=== PATIENT | female | born 1955 | race Caucasian/White ===

== ENCOUNTER → 2016-08-26 | Outpatient (REF) | payer OTHER ==
[~2016-08-26] MED LIST: /ADVA50050 IN; ADVAIR INH; ALBUTEROL; ALBUTEROL INH; COLA100C2 OR; COLC0.6T OR; DUONSOL IN; FLAG500T OR; HYDR25TA6 OR; IPRATROPIUM; IPRATROPIUM INH; L-THYROXINE; LEVA750T OR; LEVO175T3 OR; LISINOPRIL/HCTZ; MAGN250T; NAPR500T OR; NEUR100C OR; NEUR300C; PERC7.5T8 OR; PROP40TA; PROP40TA OR; SERT50TA2 OR; SIMV20TA2; SIMV20TA2 OR; VICO5TAB OR; VICODIN; VIT D 2000 OR; VITA-113 SL; VITA500T OR; ZANA4CAP OR; ZEST20TA OR; ZEST20TA4 OR; ZOLO50TA; soma OR
[2016-08-26 14:36] LABS: ALBUMIN 3.8 GM/DL (3.2-5.2); ALBUMIN/GLOBULIN RATIO 1.27 (1.00-1.93); ALKALINE PHOSPHATASE 108 U/L (45-117); ALT/SGPT 10 U/L (12-78); ANION GAP 10 MEQ/L (8-16); AST/SGOT 15 U/L (15-37); BILIRUBIN,TOTAL 0.4 MG/DL (0.2-1.0); BLOOD UREA NITROGEN 10 MG/DL (7-18); CALCIUM LEVEL 9.6 MG/DL (8.5-10.1); CARBON DIOXIDE LEVEL 25 MEQ/L (21-32); CHLORIDE LEVEL 106 MEQ/L (98-107); CREATININE FOR GFR 0.67 MG/DL (0.55-1.02); GLOMERULAR FILTRATION RATE > 60.0 (>51); GLUCOSE, FASTING 109 MG/DL (70-105); SODIUM LEVEL 141 MEQ/L (136-145); TOTAL PROTEIN 6.8 GM/DL (6.4-8.2)
== END ==
LOC: M SFHCPLAZ 11:18
PROVIDERS: ATTEND Nurse Practitioner Family
DX: I10 Essential (primary) hypertension (principal); E03.9 Hypothyroidism, unspecified; E11.9 Type 2 diabetes mellitus without complications; M10.9 Gout, unspecified

== ENCOUNTER → 2016-11-24 | Outpatient (REF) | payer OTHER ==
[~2016-11-24] MED LIST changes: +COLA100C3 PO; +COLC1CAP PO; +DRIS50002 PO; +GABA-282 PO; +HYDR25TAB PO; +IRON1TAB PO; +LEVO175T2 PO; +LISI-538 PO; +LISI-542 PO; +MAGN1TAB25 PO; +MELO15TA4 PO; +NAPR500T PO; +PROP40TA PO; +RISATAB3 PO; +SERT50TA PO; +VICO5TAB16 PO; +VITA-193 PO; +VITA200016 PO; +VITA500C24 PO; +ZANA4CAP PO; +advair INH
[2016-11-24 11:04] LABS: FREE T4 1.52 NG/DL (0.76-1.46)
== END ==
LOC: M SFHCPLAZ 07:40
PROVIDERS: ATTEND Nurse Practitioner Family
DX: E03.9 Hypothyroidism, unspecified (principal)

== ENCOUNTER → 2016-12-09 | Outpatient (CLI) | payer OTHER | LOC: M LAB 13:18 | PROVIDERS: ATTEND Nurse Practitioner Family | DX: M79.1 Myalgia (principal) ==

== ENCOUNTER → 2016-12-09 | Outpatient (CLI) | payer OTHER ==
[~2016-12-09] MED LIST changes: +ADVA115A INH; +ALBU17IN INH; +ALLO100T PO; +BACITAB3 PO; +FOLI1TAB2 PO; +HYDR200T3 PO; +IRON50TA PO; +LEVO100T5 PO; +METH-107 PO; +MOBI15TA PO; +OMEP40CA2 PO; +RANI150T PO; +ROBA500T PO
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
== END ==
LOC: M PAIN 11:20
PROVIDERS: ATTEND Nurse Practitioner Family
DX: M79.1 Myalgia (principal); M06.9 Rheumatoid arthritis, unspecified; M54.9 Dorsalgia, unspecified; M96.1 Postlaminectomy syndrome, not elsewhere classified; E03.9 Hypothyroidism, unspecified; J45.909 Unspecified asthma, uncomplicated; E78.2 Mixed hyperlipidemia; E11.9 Type 2 diabetes mellitus without complications; F32.9 Major depressive disorder, single episode, unspecified; Z88.6 Allergy status to analgesic agent; Z88.8 Allergy status to other drugs, medicaments and biological substances; Z79.899 Other long term (current) drug therapy

== ENCOUNTER → 2016-12-23 | Outpatient (CLI) | payer OTHER ==
[~2016-12-23] VITALS: Ht 157.5 cm; Wt 78.5 kg
[~2016-12-23] MED LIST changes: +NS 1,000 ML IV ONE; +PROPOFOL 200 MG/20 ML VIAL As Ordered ONE; +ePHEDrine INJ 50 MG/ML VIAL As Ordered ONE; +ePHEDrine SULFATE 25 MG/5 ML(5MG/ML) SYRINGE As Ordered ONE
--- NOTE | 2016-12-23 11:30 | ROOR ---
Patient Name: Janie Perdue Procedure Date: 12/23/2016 11:17 AM Date of : 1955 Age: 61 Room: [facility] Gender: Female Note Status: Finalized Procedure: Upper GI endoscopy Indications: Follow-up of chronic gastric erosion/shallow ulcer, Erosive gastropathy, Gastroparesis Providers: Philip MANNING MD Referring MD: Allie Mcdonald NP Requesting Provider: Medicines: Monitored Anesthesia Care Complications: No immediate complications. Procedure: Pre-Anesthesia Assessment: - The heart rate, respiratory rate, oxygen saturations, blood pressure, adequacy of pulmonary ventilation, and response to care were monitored throughout the procedure. The Endoscope was introduced through the mouth, and advanced to the second part of duodenum. The upper GI endoscopy was accomplished without difficulty. The patient tolerated the procedure well. Findings: The esophagus was normal. The stomach was normal. The examined duodenum was normal. Impression: - Normal esophagus. - Normal stomach. - Normal examined duodenum. - No specimens collected. Recommendation: - Continue present medications. - Gastroparesis diet: - Eat smaller, more frequent meals throughout the day. - Low fat diet. - Liquid/soft foods are tolerated better than solid foods. - Low fiber/well cooked vegetables are tolerated better than high fiber/fibrous foods/raw vegetables. - Avoid medications that inhibit gastric/intestinal motility such as narcotic medications. Philip Manning MD Philip MANNING MD 12/23/2016 11:29:57 AM This report has been signed electronically. Number of Addenda: 0 Note Initiated On: 12/23/2016 11:17 AM Estimated Blood Loss: Estimated blood loss: none.
[2016-12-23 11:44] VITALS: BP 154/81
== END | disposition home or self-care (01) ==
LOC: M OPP 09:54
PROVIDERS: ATTEND Internal Medicine Gastroenterology
DX: K25.7 Chronic gastric ulcer without hemorrhage or perforation (principal); K31.84 Gastroparesis; R94.31 Abnormal electrocardiogram [ECG] [EKG]; I10 Essential (primary) hypertension; E78.5 Hyperlipidemia, unspecified; R01.1 Cardiac murmur, unspecified; M10.9 Gout, unspecified; E03.9 Hypothyroidism, unspecified; R12 Heartburn; I77.9 Disorder of arteries and arterioles, unspecified; M19.90 Unspecified osteoarthritis, unspecified site; M25.60 Stiffness of unspecified joint, not elsewhere classified; F41.9 Anxiety disorder, unspecified; G43.909 Migraine, unspecified, not intractable, without status migrainosus; J45.909 Unspecified asthma, uncomplicated; J44.9 Chronic obstructive pulmonary disease, unspecified; M06.9 Rheumatoid arthritis, unspecified; F17.210 Nicotine dependence, cigarettes, uncomplicated; Z88.8 Allergy status to other drugs, medicaments and biological substances; Z91.018 Allergy to other foods; Z88.5 Allergy status to narcotic agent; Z79.899 Other long term (current) drug therapy; Z80.0 Family history of malignant neoplasm of digestive organs; Z80.3 Family history of malignant neoplasm of breast

== ENCOUNTER → 2017-01-03 | Outpatient (CLI) | payer OTHER ==
[~2017-01-03] MED LIST changes: +BACITAB PO; -BACITAB3 PO; +BACT800T5 PO; +BUPIVACAINE HCL 0.25% 10 ML VIAL As Ordered ONE; +BUPIVACAINE HCL 0.25% 30 ML VIAL As Ordered ONE; -COLA100C3 PO; +COLA100C5 PO; -FOLI1TAB2 PO; +FOLI1TAB4 PO; -METH-107 PO; +METH1TAB40 PO; -NS 1,000 ML IV ONE; -PROPOFOL 200 MG/20 ML VIAL As Ordered ONE; +TRIAMCINOLONE ACETONIDE SUSP 40 MG/ML VIAL (J3301) As Ordered ONE; -ePHEDrine INJ 50 MG/ML VIAL As Ordered ONE; -ePHEDrine SULFATE 25 MG/5 ML(5MG/ML) SYRINGE As Ordered ONE
--- NOTE | 2017-01-15 00:23 | ECWPNPC ---
PATIENT NAME: NAVNEET MARTIN : 1955 GENDER: FEMALE VISIT DATE: 01/03/2017 DISCHARGE DATE: 01/03/17 1007 VISIT LOCKED DATE TIME: PHYSICIAN: TAD BRAUN RESOURCE: TAD BRAUN REASON FOR APPOINTMENT 1. TPI HISTORY OF PRESENT ILLNESS HISTORY OF PRESENT ILLNESS: PAIN THE PATIENT DESCRIBES THE PAIN... FALL RISK SCREENING: SCREENING :NO FALLS IN THE PAST YEAR CURRENT MEDICATIONS TAKING TYLENOL 8 HOUR 650 MG TABLET EXTENDED RELEASE 1 TABLET NEEDED ORALLY EVERY 8 HRS, NOTES: 01-01-17 TAKING IRON 50 MG TABLET 2 TABLET ORALLY ONCE A DAY( OTC), NOTES: 01-02-17899 TAKING VITAMIN C 500 MG TABLET CHEWABLE 1 TABLET ORALLY ONCE A DAY, NOTES: 01-02-17899 TAKING MAGNESIUM 500 MG TABLET 1 TABLET WITH A MEAL ORALLY ONCE A DAY, NOTES: 899 TAKING VITAMIN B-12 1000 MCG TABLET 1 TAB(S) ORALLY ONCE A DAY, NOTES: 899 TAKING FOLIC ACID 1 MG TABLET 1 TAB(S) ORALLY DAILY, NOTES: 01-02-17799 TAKING LISINOPRIL 20 MG TABLET 1 TABLET ORALLY DAILY IN AM, NOTES: 01-02-17799 TAKING SYNTHROID 125 MCG TABLET 1 TABLET ON AN EMPTY STOMACH IN THE MORNING ORALLY ONCE A DAY, NOTES: 01-02-17799 TAKING SERTRALINE HCL 50 MG TABLET 1 TABLET ORALLY ONCE A DAY, NOTES: 01-02-17899 TAKING LISINOPRIL 5 5 MG TABLET 1 TAB ORALLY DAILY IN PM, NOTES: 01-02-17899 TAKING GABAPENTIN 300 MG CAPSULE 1 CAPSULE ORALLY THREE TIMES A DAY, NOTES: 01-02-17899 TAKING DRISDOL 50,000 UNITS TABLET DIRECTED ORAL WEEKLY, NOTES: 01-02-17899 TAKING VITAMIN D3 SUPER STRENGTH 2000 UNIT TABLET 1 TABLET ORALLY ONCE A DAY, NOTES: 01-02-17899 TAKING PLAQUENIL 200 MG TABLET 1 TABLET WITH FOOD OR MILK ORALLY ONCE A DAY, NOTES: 01-02-17899 TAKING DUONEB 0.5-2.5 (3) MG/3ML SOLUTION 3 ML INHALATION THREE TIMES DAILY, NEEDED, NOTES: 01-01-17899 TAKING ADVAIR HFA 115-21 MCG/ACT AEROSOL 2 PUFFS INHALATION TWICE A DAY, NOTES: 01-01-17899 TAKING ALBUTEROL SULFATE HFA 108 (90 BASE) MCG/ACT AEROSOL SOLUTION 2 PUFFS INHALATION EVERY 4 HOURS NEEDED, NOTES: 01-01-17799 TAKING ALLOPURINOL 100 MG TABLET 1 TABLET ORALLY ONCE A DAY, NOTES: 01-02-17899 TAKING ROBAXIN 500 MG TABLET 1 TABLET ORALLY FOUR TIMES A DAY NEEDED, NOTES: 01-02-17899 TAKING BACID 1 TABLET 1 TAB(S) ORALLY TWICE DAILY, NOTES: 01-02-17899 TAKING MOBIC 15 MG TABLET 1 TABLET ORALLY ONCE A DAY PRN, NOTES: 01-02-17 MEDICATION LIST REVIEWED AND RECONCILED WITH THE PATIENT PAST MEDICAL HISTORY DM-2 DIET CONTROLLED HYPERTENSION HYPOTHYROIDISM H/O SYNCOPE/HYPOTENSION/HTN/ 15 DAY EVENT MONITOR UNREMARKABLE- JUVENAL- DR NASSAR PEPTIC ULCER DISEASE DIAGNOSED 2010. (EGD AND COLONOSCOPY 2 011) DR. SKELTON DEPRESSION RA OF CERVICAL/THORACIC/LUMBAR SPINE/LEFT SHOULDER/BOTH KNEES- DR SOTO & DR. WAGNER RSD- DR GUIDRY (NO LONGER FOLLOWING WITH DR. GUIDRY) GOUT QUESTIONABLE H/O PE 2 YRS AGO, NOT ON ANTICOAGULATION COPD/CHRONIC BRONCHITIS ASTHMA AVASCULAR NECROSIS OF RIGHT SHOULDER- SYR- DR SOTO- [facility] ORTHO EKG 05/07 PNEUMO 05/05 EMG/NCS [facility]- SM PN/ L5-S1 RADICULOPATHY MAMMO 05/08 NEG CARPAL TUNNEL-- BILATERAL GERD NO KNEE CAPS BILATERAL STATES SHE'S A HEMOPHILIAC ALLERGIES ASPIRIN: NAUSEA/VOMITING, CONVULSIONS: ALLERGY STATINS (FOR ALLERGY USE ONLY): RASH: ALLERGY SOCIAL HISTORY GENERAL: TOBACCO USE ARE YOU A:CURRENT SMOKER HOW MANY CIGARETTES A DAY DO YOU SMOKE?5 OR LESS HOW SOON AFTER YOU WAKE UP DO YOU SMOKE YOUR FIRST CIGARETTE?31-60 MIN HOW OFTEN DO YOU SMOKE CIGARETTES?EVERY DAY PATIENT COUNSELED ON THE DANGERS OF TOBACCO USE AND URGED TO QUIT:12/09/2016 ARE YOU INTERESTED IN QUITTING?NOT READY TO QUIT COUNSELED THE PATIENT ON SMOKING EFFECTS, EDUCATION [id number]/18/2017 SMOKING CESSATION INFORMATION GIVEN04/05/2016 BMI CARE GOAL FOLLOW-UP ABOVE NORMAL BMI FOLLOW-UPGIVING ENCOURAGEMENT TO EXERCISE ALCOHOL SCREENING DID YOU HAVE A DRINK CONTAINING ALCOHOL IN THE PAST YEAR?YES HOW OFTEN DID YOU HAVE A DRINK CONTAINING ALCOHOL IN THE PAST YEAR?MONTHLY OR LESS (1 POINT) HOW MANY DRINKS DID YOU HAVE ON A TYPICAL DAY WHEN YOU WERE DRINKING IN THE PAST YEAR?1 OR 2 (0 POINTS) HOW OFTEN DID YOU HAVE SIX OR MORE DRINKS ON ONE OCCASION IN THE PAST YEAR?NEVER (0 POINTS) POINTS1 INTERPRETATIONNEGATIVE RECREATIONAL DRUG USE DENIES. 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 DIET: CONTROLS DIABETES BY HER DIET INTAKE. EXERCISE: WALKS. MARITAL STATUS: CALVIN. OTHERS AT HOME: SPOUSE, ANA(SISTER), CHILD. PETS: 1 DOG. [employer]. LANGUAGE [employer]. 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 LEARNING BARRIERS / SPECIAL NEEDS CHANGE FROM LAST VISIT?NO NO BARRIERS TO LEARNING?NO HEARING IMPAIRED?NO VISION IMPAIRED?YES :CORRECTIVE LENSES COGNITIVELY IMPAIRED?NO READINESS TO LEARN?YES LEARNING PREFERENCES?YES :BOOKLETS, HANDOUTS LEARNING CAPABILITIES PRESENT?YES EMOTIONAL BARRIERS?NO SPECIAL DEVICES?YES :HERMELINDA NVOAK COMPUTER DRAFTER NEEDED?NO PAIN CLINIC PFS, CLERGY, PUBLIC HEALTH REFERRALS PFS REFERRAL NEEDED?NO CLERGY REFERRAL NEEDED?NO PUBLIC HEALTH REFERRAL NEEDED?NO ADVANCE DIRECTIVES HEALTH CARE PROXY?YES NAME OF HCP [place] CONTACT # FOR HCP [phone] DO YOU HAVE A COPY WITH YOU?NO DO YOU HAVE A DNR?NO LIVING WILL?NO WOULD YOU LIKE MORE INFORMATION?NO 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 , [place] PHONE # OF POA? [phone] DO YOU HAVE A COPY WITH YOU? ON FILE HOUSING: OWNS HOME. DOMESTIC VIOLENCE NONE. SMOKIN 5 CIGS PER DAY. H/O 30 PACK YEARS. 12/09/16 ORIENTATION TO PLAN OF CARE FOR THE PAIN CENTER REVIEWED WITH PATIENT AND SHE VERBALIZED UNDERSTANDING. AD. REVIEW OF SYSTEMS REVIEWED BY: PROVIDER: . CONSTITUTIONAL: ANY CHANGE IN YOUR MEDICAL CONDITION? NO . CHILLS NO . FEVER NO . INFECTION: DO YOU HAVE NEW INFECTIONS? NO . DO YOU HAVE HISTORY OF MRSA? NO . MUSCULOSKELETAL: ANY NEW PATTERNS OF PAIN OR NUMBNESS? NO . GASTROENTEROLOGY: ANY NEW CHANGE IN BOWEL CONTROL? NO . GENITOURINARY: ANY NEW CHANGE IN BLADDER CONTROL? NO . IS THERE A CHANCE YOU COULD BE ? NO . HEMATOLOGY/LYMPH: DO YOU TAKE ANY BLOOD THINNERS? (FOR EXAMPLE- COUMADIN, PLAVIX, AGGRENOX, PLATEL, PRADAXA, OR XARELTO) NO . WHEN WAS YOUR LAST DOSE? DATE: TIME: . NEUROLOGY: HAVE YOU FALLEN IN THE PAST 6 MONTHS? YES TRIPPED OVER A DOG , NO INJURY . ANY NEW EXTREMITY NUMBNESS OR WEAKNESS? NO . CARDIOLOGY: DO YOU HAVE A PACEMAKER OR DEFIBRILLATOR? NO . RESPIRATORY: HAVE YOU BEEN SICK IN THE PAST WEEK? NO . FEVER NO . FLU LIKE SYMPTOMS? NO . COUGH NO . INTEGUMENTARY: DO YOU HAVE ANY RASHES OR OPEN SORES? NO . ALLERGIC/IMMUNO: ARE YOU ALLERGIC TO SHELLFISH OR IV DYE? NO . ANY NEW ALLERGIES? NO . PSYCHIATRIC: DO YOU HAVE THOUGHTS OF HURTING YOURSELF OR SOMEONE ELSE? NO . ARE YOU ABUSED, NEGLECTED, OR IN AN UNSAFE ENVIRONMENT? NO . ENDOCRINOLOGY: ARE YOU DIABETIC? NO . OTHER: DO YOU NEED ANY PRESCRIPTIONS? NO . IF YES, PLEASE LIST: ____ . ANY NEW PROBLEMS WITH YOUR MEDICATIONS? NO . WHEN DID YOU LAST EAT? ____ . WHEN DID YOU LAST DRINK? ____ . WHAT DID YOU LAST DRINK? ____ . NAME OF PERSON DRIVING YOU HOME? ____ . DO YOU HAVE ANY OTHER QUESTIONS OR CONCERNS NO . VITAL SIGNS WT 177.6 LBS, HT 62 IN, BMI 32.48 INDEX, BP 151/68 MM HG, HR 77 /MIN, RR 16 /MIN, TEMP 97.7 F, OXYGEN SAT % 92%, SAFE IN ENV? (Y/N) YES, NA INITIALS TL 0852, REVIEWED BY: KG. ASSESSMENTS MYALGIA - M79.1 (PRIMARY) PROCEDURES PN TRIGGER POINT INJECTION WITH STEROIDS PRE PROCEDURE DIAGNOSIS 1. MYALGIA 2. PAIN AT RIGHT THORACIC AREA, LEFT SHOULDER AREA, AND RIGHT LOWER BACK AREA POST PROCEDURE DIAGNOSIS 1. MYALGIA 2. PAIN AT RIGHT THORACIC AREA, LEFT SHOULDER AREA, AND RIGHT LOWER BACK AREA PROCEDURE TRIGGER POINT INJECTION AT RIGHT THORACIC AREA, LEFT SHOULDER AREA, AND RIGHT LOWER BACK AREA SURGEON DR. TAD BRAUN TRACTOR DRILL OPERATOR NONE ANESTHESIA LOCAL PRE PROCEDURE NOTE THE PATIENT HAS A HISTORY OF CHRONIC PAIN AT THE RIGHT THORACIC AREA, LEFT SHOULDER AREA, AND RIGHT LOWER BACK AREA. I EVALUATE THE PATIENT AND REVIEWED THE CHART. THERE IS EVIDENCE OF BANDS OF TISSUE WITH RESTRICTION OF MOVEMENT AND PRESENCE OF TRIGGER POINT AT THE AFFECTED AREA. I WENT OVER THE RISKS, ALTERNATIVES, AND BENEFITS ASSOCIATED WITH THIS PROCEDURE. THE PATIENT WOULD LIKE TO PROCEED AND GIVE CONSENT TO PERFORMED THE PROCEDURE. THE PATIENT DENIES UNEXPLAINABLE WEIGHT LOSS, FEVER, CHILLS, OR NEW CHANGES IN URINARY OR BOWEL CONTROL DESCRIPTION OF PROCEDURE THE PATIENT WAS BROUGHT TO THE PROCEDURE ROOM AND PLACED IN THE SITTING POSITION. THE AREA WAS CLEANED WITH ALCOHOL. THE PROCEDURE WAS DONE USING ASEPTIC STERILE TECHNIQUE. I CHECKED LATERALITY AND THE LEVEL WHERE THE PROCEDURE WAS GOING TO BE PERFORMED WITH THE PATIENT AND THE SUPPORTING STAFF AT THE MOMENT OF THE TIME OUT IN THE PROCEDURE ROOM. USING A 25-GAUGE NEEDLE, TRIGGER POINTS WERE INJECTED AT THE RIGHT THORACIC AREA, LEFT SHOULDER AREA, AND RIGHT LOWER BACK AREA WITH A TOTAL OF 40 ML OF BUPIVACAINE 0.25% AND KENALOG 40 MG. THERE WAS NO EVIDENCE OF BLOOD, PARESTHESIA OR CEREBROSPINAL FLUID DURING THE PROCEDURE. THE PATIENT WAS SENT TO THE RECOVERY ROOM. THE PATIENT WAS MOVING THE EXTREMITIES AND DOING WELL. THERE WAS NO COMPLICATION DURING THE PROCEDURE POST PROCEDURE NOTE THE PATIENT WILL BE SEEN IN A FOLLOW UP IN THE NEXT FEW WEEKS. INSTRUCTIONS WERE GIVEN, QUESTIONS WERE ANSWERED, AND THE PATIENT EXPRESSED UNDERSTANDING AND AGREES WITH THE PLAN. I, NURYS EARLY, DOCUMENTED THE ABOVE INFORMATION ACTING A SCRIBE FOR DR. BRAUN. I, DR. BRAUN, HAVE REVIEWED THE ABOVE DOCUMENT, SCRIBED BY NURYS EARLY, AND I VERIFY THAT IT IS ACCURATE PROCEDURE CODES 44193 INJECT TRIGGER POINTS 3/> DISPOSITION & COMMUNICATION FOLLOW UP 3 WEEKS ELECTRONICALLY SIGNED BY TAD BRAUN MD ON 01/14/2017 AT 10:16 AM EDT DISCLAIMER : THIS IS A VISIT SUMMARY EXTRACTED FROM THE [employer] CHART. IT IS NOT A COPY OF THE [employer] PROGRESS NOTE. [facility]
== END ==
LOC: M PAIN 08:35
PROVIDERS: ATTEND Anesthesiology
DX: G89.29 Other chronic pain (principal); M79.1 Myalgia; M54.6 Pain in thoracic spine; M25.511 Pain in right shoulder; M54.5 Low back pain; Z79.899 Other long term (current) drug therapy; F17.210 Nicotine dependence, cigarettes, uncomplicated; Z88.6 Allergy status to analgesic agent; Z88.8 Allergy status to other drugs, medicaments and biological substances

== ENCOUNTER → 2017-01-17 | Outpatient (CLI) | payer OTHER ==
[~2017-01-17] MED LIST changes: -BUPIVACAINE HCL 0.25% 10 ML VIAL As Ordered ONE; -BUPIVACAINE HCL 0.25% 30 ML VIAL As Ordered ONE; -TRIAMCINOLONE ACETONIDE SUSP 40 MG/ML VIAL (J3301) As Ordered ONE
--- NOTE | 2017-02-03 01:00 | ECWPNPC ---
PATIENT NAME: NAVNEET MARTIN : 1955 GENDER: FEMALE VISIT DATE: 01/17/2017 DISCHARGE DATE: 01/17/17948 VISIT LOCKED DATE TIME: PHYSICIAN: ASHU SHEN RESOURCE: ASHU SHEN REASON FOR APPOINTMENT 1. POST TPI HISTORY OF PRESENT ILLNESS HISTORY OF PRESENT ILLNESS: PAIN THE PATIENT DESCRIBES THE PAIN... FALL RISK SCREENING: SCREENING :NO FALLS IN THE PAST YEAR TODAY'S VISIT: NOTES: S/P TRIGGER POINT INJECTIONS TO MID THORACIC REGION COMPLETED ON12/27/16. REPORTS THIS WAS VERY HELPFUL AND DID SIGNIFF=ICANTLY IMPROVE PAIN AND TIGHTNESS IN THE REGION. RATES PAIN TODAY 2/10. NOTES AREA REMAINS TENDER AND SORE.. CURRENT MEDICATIONS TAKING TYLENOL 8 HOUR 650 MG TABLET EXTENDED RELEASE 1 TABLET NEEDED ORALLY EVERY 8 HRS, NOTES: 01-01-17 TAKING IRON 50 MG TABLET 2 TABLET ORALLY ONCE A DAY( OTC), NOTES: 01-02-17899 TAKING VITAMIN C 500 MG TABLET CHEWABLE 1 TABLET ORALLY ONCE A DAY, NOTES: 01-02-17899 TAKING MAGNESIUM 500 MG TABLET 1 TABLET WITH A MEAL ORALLY ONCE A DAY, NOTES: 899 TAKING VITAMIN B-12 1000 MCG TABLET 1 TAB(S) ORALLY ONCE A DAY, NOTES: 899 TAKING FOLIC ACID 1 MG TABLET 1 TAB(S) ORALLY DAILY, NOTES: 01-02-17799 TAKING LISINOPRIL 20 MG TABLET 1 TABLET ORALLY DAILY IN AM, NOTES: 01-02-17799 TAKING SYNTHROID 125 MCG TABLET 1 TABLET ON AN EMPTY STOMACH IN THE MORNING ORALLY ONCE A DAY, NOTES: 01-02-17799 TAKING SERTRALINE HCL 50 MG TABLET 1 TABLET ORALLY ONCE A DAY, NOTES: 01-02-17899 TAKING LISINOPRIL 5 5 MG TABLET 1 TAB ORALLY DAILY IN PM, NOTES: 01-02-17899 TAKING GABAPENTIN 300 MG CAPSULE 1 CAPSULE ORALLY THREE TIMES A DAY, NOTES: 01-02-17899 TAKING DRISDOL 50,000 UNITS TABLET DIRECTED ORAL WEEKLY, NOTES: 01-02-17899 TAKING VITAMIN D3 SUPER STRENGTH 2000 UNIT TABLET 1 TABLET ORALLY ONCE A DAY, NOTES: 01-02-17899 TAKING PLAQUENIL 200 MG TABLET 1 TABLET WITH FOOD OR MILK ORALLY ONCE A DAY, NOTES: 01-02-17899 TAKING DUONEB 0.5-2.5 (3) MG/3ML SOLUTION 3 ML INHALATION THREE TIMES DAILY, NEEDED, NOTES: 01-01-17899 TAKING ADVAIR HFA 115-21 MCG/ACT AEROSOL 2 PUFFS INHALATION TWICE A DAY, NOTES: 01-01-17899 TAKING ALBUTEROL SULFATE HFA 108 (90 BASE) MCG/ACT AEROSOL SOLUTION 2 PUFFS INHALATION EVERY 4 HOURS NEEDED, NOTES: 01-01-17799 TAKING ALLOPURINOL 100 MG TABLET 1 TABLET ORALLY ONCE A DAY, NOTES: 01-02-17899 TAKING ROBAXIN 500 MG TABLET 1 TABLET ORALLY FOUR TIMES A DAY NEEDED, NOTES: 01-02-17899 TAKING BACID 1 TABLET 1 TAB(S) ORALLY TWICE DAILY, NOTES: 01-02-17899 TAKING MOBIC 15 MG TABLET 1 TABLET ORALLY ONCE A DAY PRN, NOTES: 01-02-17 MEDICATION LIST REVIEWED AND RECONCILED WITH THE PATIENT PAST MEDICAL HISTORY DM-2 DIET CONTROLLED HYPERTENSION HYPOTHYROIDISM H/O SYNCOPE/HYPOTENSION/HTN/ 15 DAY EVENT MONITOR UNREMARKABLE- GEEY- DR NASSAR PEPTIC ULCER DISEASE DIAGNOSED 2010. (EGD AND COLONOSCOPY 2 011) DR. SKELTON DEPRESSION RA OF CERVICAL/THORACIC/LUMBAR SPINE/LEFT SHOULDER/BOTH KNEES- DR SOTO & DR. WAGNER RSD- DR GUIDRY (NO LONGER FOLLOWING WITH DR. GUIDRY) GOUT QUESTIONABLE H/O PE 2 YRS AGO, NOT ON ANTICOAGULATION COPD/CHRONIC BRONCHITIS ASTHMA AVASCULAR NECROSIS OF RIGHT SHOULDER- SYR- DR SOTO- [facility] ORTHO EKG 05/07 PNEUMO 05/05 EMG/NCS [facility]- SM PN/ L5-S1 RADICULOPATHY MAMMO 05/08 NEG CARPAL TUNNEL-- BILATERAL GERD NO KNEE CAPS BILATERAL STATES SHE'S A HEMOPHILIAC ALLERGIES ASPIRIN: NAUSEA/VOMITING, CONVULSIONS: ALLERGY STATINS (FOR ALLERGY USE ONLY): RASH: ALLERGY REVIEW OF SYSTEMS REVIEWED BY: PROVIDER: ASHU BALLARD . CONSTITUTIONAL: ANY CHANGE IN YOUR MEDICAL CONDITION? NO . CHILLS NO . FEVER NO . INFECTION: DO YOU HAVE NEW INFECTIONS? NO . DO YOU HAVE HISTORY OF MRSA? NO . MUSCULOSKELETAL: ANY NEW PATTERNS OF PAIN OR NUMBNESS? YES PT HAD TPI ON 6/12/17, REPORTS VERY GOOD PAIN CONTROL SINCE THAT TIME, A 2/10. PT STATES SHE HAS BEEN ABLE TO WALK MORE BECAUSE OF THIS. . GASTROENTEROLOGY: ANY NEW CHANGE IN BOWEL CONTROL? NO . GENITOURINARY: ANY NEW CHANGE IN BLADDER CONTROL? NO . IS THERE A CHANCE YOU COULD BE ? NO . HEMATOLOGY/LYMPH: DO YOU TAKE ANY BLOOD THINNERS? (FOR EXAMPLE- COUMADIN, PLAVIX, AGGRENOX, PLATEL, PRADAXA, OR XARELTO) NO . WHEN WAS YOUR LAST DOSE? DATE: TIME: . NEUROLOGY: HAVE YOU FALLEN IN THE PAST 6 MONTHS? NO . ANY NEW EXTREMITY NUMBNESS OR WEAKNESS? NO . CARDIOLOGY: DO YOU HAVE A PACEMAKER OR DEFIBRILLATOR? NO . RESPIRATORY: HAVE YOU BEEN SICK IN THE PAST WEEK? NO . FEVER NO . FLU LIKE SYMPTOMS? NO . COUGH NO . INTEGUMENTARY: DO YOU HAVE ANY RASHES OR OPEN SORES? NO . ALLERGIC/IMMUNO: ARE YOU ALLERGIC TO SHELLFISH OR IV DYE? NO . ANY NEW ALLERGIES? NO . PSYCHIATRIC: DO YOU HAVE THOUGHTS OF HURTING YOURSELF OR SOMEONE ELSE? NO . ARE YOU ABUSED, NEGLECTED, OR IN AN UNSAFE ENVIRONMENT? NO . ENDOCRINOLOGY: ARE YOU DIABETIC? NO . OTHER: DO YOU NEED ANY PRESCRIPTIONS? NO . IF YES, PLEASE LIST: ____ . ANY NEW PROBLEMS WITH YOUR MEDICATIONS? NO . WHEN DID YOU LAST EAT? ____ . WHEN DID YOU LAST DRINK? ____ . WHAT DID YOU LAST DRINK? ____ . NAME OF PERSON DRIVING YOU HOME? ____ . DO YOU HAVE ANY OTHER QUESTIONS OR CONCERNS NO . PSYCHOLOGY: SLEEP DISTURBANCES NOT SLEEPING WELL DUE TO COMMUNITY SAFETY ISSUES . VITAL SIGNS WT 175.0 LBS, HT 62 IN, BMI 32.00 INDEX, BP 149/86 MM HG, HR 74 /MIN, RR 16 /MIN, TEMP 97.7 F, OXYGEN SAT % 97%, SAFE IN ENV? (Y/N) YES, NA INITIALS TL 0849, REVIEWED BY: STEVE. EXAMINATION GENERAL EXAMINATION: LUNGS:CLEAR TO AUSCULTATION BILATERALLY. HEART:HEART RATE REGULAR. MUSCULOSKELETAL:MUSCLE STRENGTH TESTING 5/5 BILATERAL UPPER AND LOWER EXTREMITIES. CANE USED OFR BALANCE. , TRIGGER POINTS AND TIGHT FIBROUS BANDS NOTED ALONG MIDSCAPULA REGION RIGHT SIDE GREATER THAN LEFT.. JOINTS:SWOLLEN JOINTS NOTED PIP JOINTS BOTH HANDS.. ASSESSMENTS MYALGIA - M79.1 (PRIMARY) RHEUMATOID ARTHRITIS - M06.9 BACK PAIN - M54.9 LUMBAR POST-LAMINECTOMY SYNDROME - M96.1 TREATMENT MYALGIA TRIGGER POINT 3 + ASHU DODSON 01/17/2017 9:33:15 AM > MID THORACIC/SCAPULA NOTES: DO EXERCISES AND STRETCHES, TENNIS BALL TO APPLY PRESSURE TO ARMSHOLD PLAQUENIL FOR 2 DAYS PROR TO INJECTION. PREVENTIVE MEDICINE PAIN CLINIC TEACHING: PROCEDURE TEACHING REVIEWED TEACHING FOR TRIGGER POINT INJECTIONS, PT VERBALIZES UNDERSTANDING. PROCEDURE CODES FA211 ESTABILISHED PATIENT [facility] FACILITY CHARGE DISPOSITION & COMMUNICATION FOLLOW UP SCHED FOR TPI IN 1 MONTH (REASON: THORACIC PAIN) ELECTRONICALLY SIGNED BY KATELIN RACHEL ON 02/02/2017 AT 08:34 AM EDT DISCLAIMER : THIS IS A VISIT SUMMARY EXTRACTED FROM THE [employer] CHART. IT IS NOT A COPY OF THE [employer] PROGRESS NOTE. [facility]
== END ==
LOC: M PAIN 09:00
PROVIDERS: ATTEND Nurse Practitioner Family
DX: M79.1 Myalgia (principal); M06.9 Rheumatoid arthritis, unspecified; M54.9 Dorsalgia, unspecified; M96.1 Postlaminectomy syndrome, not elsewhere classified; Z88.6 Allergy status to analgesic agent; Z88.8 Allergy status to other drugs, medicaments and biological substances; Z79.899 Other long term (current) drug therapy; E11.9 Type 2 diabetes mellitus without complications; J45.909 Unspecified asthma, uncomplicated; I10 Essential (primary) hypertension; J44.9 Chronic obstructive pulmonary disease, unspecified; F32.9 Major depressive disorder, single episode, unspecified

== ENCOUNTER → 2017-02-07 | Outpatient (REF) | payer OTHER ==
[2017-02-07 12:26] LABS: ALBUMIN 3.5 GM/DL (3.2-5.2); ALBUMIN/GLOBULIN RATIO 1.35 (1.00-1.93); ALKALINE PHOSPHATASE 107 U/L (45-117); ALT/SGPT 9 U/L (12-78); ANION GAP 10 MEQ/L (8-16); AST/SGOT 9 U/L (15-37); BILIRUBIN,TOTAL 0.4 MG/DL (0.2-1.0); BLOOD UREA NITROGEN 10 MG/DL (7-18); CALCIUM LEVEL 8.8 MG/DL (8.5-10.1); CARBON DIOXIDE LEVEL 22 MEQ/L (21-32); CHLORIDE LEVEL 112 MEQ/L (98-107); CHOLESTEROL LEVEL 196 MG/DL (<200); CREATININE FOR GFR 0.67 MG/DL (0.55-1.02); FREE T4 1.16 NG/DL (0.76-1.46); GLOMERULAR FILTRATION RATE > 60.0 (>51); GLUCOSE, FASTING 85 MG/DL (70-105); POTASSIUM SERUM 3.9 MEQ/L (3.5-5.1); SODIUM LEVEL 144 MEQ/L (136-145); TOTAL PROTEIN 6.1 GM/DL (6.4-8.2); TRIGLYCERIDES LEVEL 108 MG/DL (<150)
== END ==
LOC: M SFHCPLAZ 07:58
PROVIDERS: ATTEND Nurse Practitioner Family
DX: E03.9 Hypothyroidism, unspecified (principal); I10 Essential (primary) hypertension; E11.9 Type 2 diabetes mellitus without complications; E78.2 Mixed hyperlipidemia; E55.9 Vitamin D deficiency, unspecified

== ENCOUNTER → 2017-02-16 | Outpatient (CLI) | payer OTHER ==
[~2017-02-16] MED LIST changes: +BUPIVACAINE HCL 0.25% 10 ML VIAL As Ordered ONE; +BUPIVACAINE HCL 0.25% 30 ML VIAL As Ordered ONE; +TRIAMCINOLONE ACETONIDE SUSP 40 MG/ML VIAL (J3301) As Ordered ONE
--- NOTE | 2017-03-07 00:05 | ECWPNPC ---
PATIENT NAME: NAVNEET MARTIN : 1955 GENDER: FEMALE VISIT DATE: 02/16/2017 DISCHARGE DATE: 02/16/17930 VISIT LOCKED DATE TIME: PHYSICIAN: TAD BRAUN RESOURCE: TAD BRAUN REASON FOR APPOINTMENT 1. THORACIC PAIN HISTORY OF PRESENT ILLNESS HISTORY OF PRESENT ILLNESS: PAIN THE PATIENT DESCRIBES THE PAIN... FALL RISK SCREENING: SCREENING :NO FALLS IN THE PAST YEAR CURRENT MEDICATIONS TAKING TYLENOL 8 HOUR 650 MG TABLET EXTENDED RELEASE 1 TABLET NEEDED ORALLY EVERY 8 HRS, NOTES: 02-12-17899 TAKING IRON 50 MG TABLET 2 TABLET ORALLY ONCE A DAY( OTC), NOTES: 02-15-17899 TAKING VITAMIN C 500 MG TABLET CHEWABLE 1 TABLET ORALLY ONCE A DAY, NOTES: 02-14-17899 TAKING MAGNESIUM 500 MG TABLET 1 TABLET WITH A MEAL ORALLY ONCE A DAY, NOTES: 02-14-17899 TAKING VITAMIN B-12 1000 MCG TABLET 1 TAB(S) ORALLY ONCE A DAY, NOTES: 02-15-17899 TAKING FOLIC ACID 1 MG TABLET 1 TAB(S) ORALLY DAILY, NOTES: 02-15-17899 TAKING LISINOPRIL 20 MG TABLET 1 TABLET ORALLY DAILY IN AM, NOTES: 02-15 TAKING SYNTHROID 125 MCG TABLET 1 TABLET ON AN EMPTY STOMACH IN THE MORNING ORALLY ONCE A DAY, NOTES: 02-15-17899 TAKING SERTRALINE HCL 50 MG TABLET 1 TABLET ORALLY ONCE A DAY, NOTES: 02-15-17899 TAKING LISINOPRIL 5 5 MG TABLET 1 TAB ORALLY DAILY IN PM, NOTES: 02-15-172099 TAKING GABAPENTIN 300 MG CAPSULE 1 CAPSULE ORALLY THREE TIMES A DAY, NOTES: 02-15-172099 TAKING DRISDOL 50,000 UNITS TABLET DIRECTED ORAL WEEKLY, NOTES: 02-15-172099 TAKING VITAMIN D3 SUPER STRENGTH 2000 UNIT TABLET 1 TABLET ORALLY ONCE A DAY, NOTES: 02-15-17899 TAKING PLAQUENIL 200 MG TABLET 1 TABLET WITH FOOD OR MILK ORALLY ONCE A DAY, NOTES: 02-15-17899 TAKING DUONEB 0.5-2.5 (3) MG/3ML SOLUTION 3 ML INHALATION THREE TIMES DAILY, NEEDED, NOTES: 02-10-17899 TAKING ADVAIR HFA 115-21 MCG/ACT AEROSOL 2 PUFFS INHALATION TWICE A DAY, NOTES: 02-12-17899 TAKING ALBUTEROL SULFATE HFA 108 (90 BASE) MCG/ACT AEROSOL SOLUTION 2 PUFFS INHALATION EVERY 4 HOURS NEEDED, NOTES: 02-10-17899 TAKING ALLOPURINOL 100 MG TABLET 1 TABLET ORALLY ONCE A DAY, NOTES: 02-15-17899 TAKING ROBAXIN 500 MG TABLET 1 TABLET ORALLY FOUR TIMES A DAY NEEDED, NOTES: 02-15-17899 TAKING BACID 1 TABLET 1 TAB(S) ORALLY TWICE DAILY, NOTES: 02-15-17899 TAKING MOBIC 15 MG TABLET 1 TABLET ORALLY ONCE A DAY PRN, NOTES: 02-15-17899 TAKING SYNTHROID 100 MCG TABLET 1 TABLET ON AN EMPTY STOMACH IN THE MORNING ORALLY ONCE A DAY, NOTES: 02-15 MEDICATION LIST REVIEWED AND RECONCILED WITH THE PATIENT PAST MEDICAL HISTORY DM-2 DIET CONTROLLED HYPERTENSION HYPOTHYROIDISM H/O SYNCOPE/HYPOTENSION/HTN/ 15 DAY EVENT MONITOR UNREMARKABLE- JUVENAL- DR NASSAR PEPTIC ULCER DISEASE DIAGNOSED 2010. (EGD AND COLONOSCOPY 2 011) DR. SKELTON DEPRESSION RA OF CERVICAL/THORACIC/LUMBAR SPINE/LEFT SHOULDER/BOTH KNEES- DR SOTO & DR. WAGNER RSD- DR GUIDRY (NO LONGER FOLLOWING WITH DR. GUIDRY) GOUT QUESTIONABLE H/O PE 2 YRS AGO, NOT ON ANTICOAGULATION COPD/CHRONIC BRONCHITIS ASTHMA AVASCULAR NECROSIS OF RIGHT SHOULDER- SYR- DR SOTO- [facility] EKG 05/07 PNEUMO 05/05 EMG/NCS [facility]- PN/ L5-S1 RADICULOPATHY MAMMO 05/08 NEG CARPAL TUNNEL-- BILATERAL GERD NO KNEE CAPS BILATERAL STATES SHE'S A HEMOPHILIAC ALLERGIES ASPIRIN: NAUSEA/VOMITING, CONVULSIONS: ALLERGY STATINS (FOR ALLERGY USE ONLY): RASH: ALLERGY REVIEW OF SYSTEMS REVIEWED BY: PROVIDER: . CONSTITUTIONAL: ANY CHANGE IN YOUR MEDICAL CONDITION? NO . CHILLS NO . FEVER NO . INFECTION: DO YOU HAVE NEW INFECTIONS? NO . DO YOU HAVE HISTORY OF MRSA? NO . MUSCULOSKELETAL: ANY NEW PATTERNS OF PAIN OR NUMBNESS? NO . GASTROENTEROLOGY: ANY NEW CHANGE IN BOWEL CONTROL? NO . GENITOURINARY: ANY NEW CHANGE IN BLADDER CONTROL? NO . IS THERE A CHANCE YOU COULD BE ? NO . HEMATOLOGY/LYMPH: DO YOU TAKE ANY BLOOD THINNERS? (FOR EXAMPLE- COUMADIN, PLAVIX, AGGRENOX, PLATEL, PRADAXA, OR XARELTO) NO . WHEN WAS YOUR LAST DOSE? DATE: TIME: . NEUROLOGY: HAVE YOU FALLEN IN THE PAST 6 MONTHS? NO . ANY NEW EXTREMITY NUMBNESS OR WEAKNESS? NO . CARDIOLOGY: DO YOU HAVE A PACEMAKER OR DEFIBRILLATOR? NO . RESPIRATORY: HAVE YOU BEEN SICK IN THE PAST WEEK? NO . FEVER NO . FLU LIKE SYMPTOMS? NO . COUGH NO . INTEGUMENTARY: DO YOU HAVE ANY RASHES OR OPEN SORES? NO . ALLERGIC/IMMUNO: ARE YOU ALLERGIC TO SHELLFISH OR IV DYE? NO . ANY NEW ALLERGIES? NO . PSYCHIATRIC: DO YOU HAVE THOUGHTS OF HURTING YOURSELF OR SOMEONE ELSE? NO . ARE YOU ABUSED, NEGLECTED, OR IN AN UNSAFE ENVIRONMENT? NO . ENDOCRINOLOGY: ARE YOU DIABETIC? NO . OTHER: DO YOU NEED ANY PRESCRIPTIONS? NO . IF YES, PLEASE LIST: ____ . ANY NEW PROBLEMS WITH YOUR MEDICATIONS? NO . WHEN DID YOU LAST EAT? ____ . WHEN DID YOU LAST DRINK? ____ . WHAT DID YOU LAST DRINK? ____ . NAME OF PERSON DRIVING YOU HOME? ____ . DO YOU HAVE ANY OTHER QUESTIONS OR CONCERNS NO . VITAL SIGNS WT 174.4 LBS, HT 62 IN, BMI 31.89 INDEX, BP 124/72 MM HG, HR 89 /MIN, RR 16 /MIN, TEMP 96.9 F, OXYGEN SAT % 96%, NA INITIALS SC 08:51. ASSESSMENTS MYALGIA - M79.1 (PRIMARY) PROCEDURES PN TRIGGER POINT INJECTION WITH STEROIDS PRE PROCEDURE DIAGNOSIS 1. MYALGIA 2. PAIN AT RIGHT THORACIC AREA POST PROCEDURE DIAGNOSIS 1. MYALGIA 2. PAIN AT RIGHT THORACIC AREA PROCEDURE TRIGGER POINT INJECTION AT RIGHT THORACIC AREA SURGEON DR. TAD BRAUN SQL DATA ARCHITECT NONE ANESTHESIA LOCAL PRE PROCEDURE NOTE THE PATIENT HAS A HISTORY OF CHRONIC PAIN AT THE RIGHT THORACIC AREA. I EVALUATE THE PATIENT AND REVIEWED THE CHART. THERE IS EVIDENCE OF BANDS OF TISSUE WITH RESTRICTION OF MOVEMENT AND PRESENCE OF TRIGGER POINT AT THE AFFECTED AREA. I WENT OVER THE RISKS, ALTERNATIVES, AND BENEFITS ASSOCIATED WITH THIS PROCEDURE. THE PATIENT WOULD LIKE TO PROCEED AND GIVE CONSENT TO PERFORMED THE PROCEDURE. THE PATIENT DENIES UNEXPLAINABLE WEIGHT LOSS, FEVER, CHILLS, OR NEW CHANGES IN URINARY OR BOWEL CONTROL DESCRIPTION OF PROCEDURE THE PATIENT WAS BROUGHT TO THE PROCEDURE ROOM AND PLACED IN THE SITTING POSITION. THE AREA WAS CLEANED WITH ALCOHOL. THE PROCEDURE WAS DONE USING ASEPTIC STERILE TECHNIQUE. I CHECKED LATERALITY AND THE LEVEL WHERE THE PROCEDURE WAS GOING TO BE PERFORMED WITH THE PATIENT AND THE SUPPORTING STAFF AT THE MOMENT OF THE TIME OUT IN THE PROCEDURE ROOM. USING A 25-GAUGE NEEDLE, TRIGGER POINTS WERE INJECTED AT THE RIGHT THORACIC AREA WITH A TOTAL OF 40 ML OF BUPIVACAINE 0.25% AND KENALOG 40 MG. THERE WAS NO EVIDENCE OF BLOOD, PARESTHESIA OR CEREBROSPINAL FLUID DURING THE PROCEDURE. THE PATIENT WAS SENT TO THE RECOVERY ROOM. THE PATIENT WAS MOVING THE EXTREMITIES AND DOING WELL. THERE WAS NO COMPLICATION DURING THE PROCEDURE POST PROCEDURE NOTE THE PATIENT WILL BE SEEN IN A FOLLOW UP IN THE NEXT FEW WEEKS. INSTRUCTIONS WERE GIVEN, QUESTIONS WERE ANSWERED, AND THE PATIENT EXPRESSED UNDERSTANDING AND AGREES WITH THE PLAN. I, NURYS EARLY, DOCUMENTED THE ABOVE INFORMATION ACTING A SCRIBE FOR DR. BRAUN. I, DR. BRAUN, HAVE REVIEWED THE ABOVE DOCUMENT, SCRIBED BY NURYS EARLY, AND I VERIFY THAT IT IS ACCURATE PROCEDURE CODES 37821 INJ TRIGGER POINT /2 [facility] DISPOSITION & COMMUNICATION FOLLOW UP 3 WEEKS ELECTRONICALLY SIGNED BY TAD BRAUN MD ON 03/06/2017 AT 09:40 AM EDT DISCLAIMER : THIS IS A VISIT SUMMARY EXTRACTED FROM THE [facility] [employer] CHART. IT IS NOT A COPY OF THE [facility] PROGRESS NOTE. MTDOwen
== END ==
LOC: M PAIN 08:30
PROVIDERS: ATTEND Anesthesiology
DX: G89.29 Other chronic pain (principal); M54.6 Pain in thoracic spine; M79.1 Myalgia; I10 Essential (primary) hypertension; E03.9 Hypothyroidism, unspecified; F32.9 Major depressive disorder, single episode, unspecified; J44.9 Chronic obstructive pulmonary disease, unspecified; K21.9 Gastro-esophageal reflux disease without esophagitis; M06.9 Rheumatoid arthritis, unspecified; E78.2 Mixed hyperlipidemia; Z88.6 Allergy status to analgesic agent; Z88.8 Allergy status to other drugs, medicaments and biological substances; Z79.891 Long term (current) use of opiate analgesic; Z79.899 Other long term (current) drug therapy
CPT/HCPCS: 20552; J3301

== ENCOUNTER → 2017-03-02 | Outpatient (REF) | payer OTHER ==
[~2017-03-02] MED LIST changes: -BUPIVACAINE HCL 0.25% 10 ML VIAL As Ordered ONE; -BUPIVACAINE HCL 0.25% 30 ML VIAL As Ordered ONE; -TRIAMCINOLONE ACETONIDE SUSP 40 MG/ML VIAL (J3301) As Ordered ONE
[2017-03-02 16:18] LABS: BASO % 0.3 % (0.0-1.0); EOS # 0.2 K/mm3 (0.0-0.50); EOS % 1.6 % (0.0-3.0); LARGE UNSTAINED CELL # 0.2 K/mm3 (0.0-0.4); LARGE UNSTAINED CELL % 1.1 % (0.0-4.0); LYMPH # 2.8 K/mm3 (1.5-4.5); LYMPH % 17.5 % (24.0-44.0); MEAN CORPUSCULAR HEMOGLOBIN 34.8 pg (27.0-33.0); MEAN CORPUSCULAR HGB CONC 33.3 g/dl (32.0-36.5); MEAN CORPUSCULAR VOLUME 104.6 fl (80.0-96.0); MONO % 6.4 % (0.0-5.0); NEUTROPHILS # 11.1 K/mm3 (1.8-7.7); NEUTROPHILS % 73.1 % (36.0-66.0); PLATELET COUNT, AUTOMATED 236 k/mm3 (150-450); RED CELL DISTRIBUTION WIDTH 13.8 % (11.5-14.5); WHITE BLOOD COUNT 15.2 K/mm3 (4.0-10.0)
[2017-03-02 16:56] LABS: PERCENT SATURATION 36.9 % (13.2-45.0)
== END ==
LOC: M SFHCPLAZ 11:06
PROVIDERS: ATTEND Family Medicine
DX: M05.79 Rheumatoid arthritis with rheumatoid factor of multiple sites without organ or systems involvement (principal); E66.9 Obesity, unspecified

== ENCOUNTER → 2017-03-16 | Outpatient (CLI) | payer OTHER ==
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
== END ==
LOC: M PAIN 10:30
PROVIDERS: ATTEND Nurse Practitioner Family
DX: M79.1 Myalgia (principal); M06.9 Rheumatoid arthritis, unspecified; M54.9 Dorsalgia, unspecified; M96.1 Postlaminectomy syndrome, not elsewhere classified; E11.9 Type 2 diabetes mellitus without complications; I10 Essential (primary) hypertension; E03.9 Hypothyroidism, unspecified; F32.9 Major depressive disorder, single episode, unspecified; J44.9 Chronic obstructive pulmonary disease, unspecified; I25.10 Atherosclerotic heart disease of native coronary artery without angina pectoris; E55.9 Vitamin D deficiency, unspecified; M10.9 Gout, unspecified; Z79.01 Long term (current) use of anticoagulants; Z79.899 Other long term (current) drug therapy; Z88.6 Allergy status to analgesic agent; Z88.8 Allergy status to other drugs, medicaments and biological substances

== ENCOUNTER 2017-04-04 08:41 | Emergency (ER) | payer OTHER ==
[~2017-04-04] VITALS: Ht 157.5 cm; Wt 81.8 kg
[~2017-04-04 08:41] MED LIST changes: -BACT800T5 PO
--- NOTE | 2017-04-04 11:30 | REP ---
FOCUSED ULTRASOUND RIGHT BREAST. HISTORY: Erythema, swelling right areola. Question abscess. FINDINGS: At 9 o'clock position in the right breast in the area of concern, there is a 1.3 x 0.6 x 1.0 cm complex avascular cystic area immediately beneath the dermis, which could be abscess or hematoma. There is some blood flow in the periphery or adjacent to this lesion. IMPRESSION: 1.3 cm complex cystic area beneath the dermis in the area of concern. Abscess versus hematoma. Clinical follow-up is recommended. Signed by Kaiser Galicia MD 04/04/2017 03:52 P
[2017-04-04] MEDS ORDERED: BACT800T5 PO (11:52)
[2017-04-04 12:02] VITALS: BP 144/67
== END 2017-04-04 12:03 | disposition home or self-care (01) ==
LOC: M ED 08:41
DX: N61.0 Mastitis without abscess (principal); N61.1 Abscess of the breast and nipple; I10 Essential (primary) hypertension; J44.9 Chronic obstructive pulmonary disease, unspecified; E11.9 Type 2 diabetes mellitus without complications; E03.9 Hypothyroidism, unspecified; F41.9 Anxiety disorder, unspecified; F33.9 Major depressive disorder, recurrent, unspecified; M54.9 Dorsalgia, unspecified; Z79.899 Other long term (current) drug therapy; Z79.51 Long term (current) use of inhaled steroids; Z88.5 Allergy status to narcotic agent; Z88.8 Allergy status to other drugs, medicaments and biological substances; Z91.018 Allergy to other foods; F17.210 Nicotine dependence, cigarettes, uncomplicated

== ENCOUNTER → 2017-05-12 | Outpatient (REF) | payer OTHER ==
[~2017-05-12] MED LIST changes: +BACT800T5 PO
[2017-05-12 13:39] LABS: MEAN CORPUSCULAR HEMOGLOBIN 33.8 pg (27.0-33.0); MEAN CORPUSCULAR HGB CONC 32.5 g/dl (32.0-36.5); RED CELL DISTRIBUTION WIDTH 13.2 % (11.5-14.5); WHITE BLOOD COUNT 11.2 10^3/uL (4.0-10.0)
[2017-05-12 13:58] LABS: EOSINOPHILS 1 % (0-5)
[2017-05-12 14:02] LABS: URIC ACID 4.1 MG/DL (2.6-6.0)
== END ==
LOC: M SFHCPLAZ 09:15
PROVIDERS: ATTEND Family Medicine
DX: I25.10 Atherosclerotic heart disease of native coronary artery without angina pectoris (principal); Z87.39 Personal history of other diseases of the musculoskeletal system and connective tissue; M05.79 Rheumatoid arthritis with rheumatoid factor of multiple sites without organ or systems involvement; D72.829 Elevated white blood cell count, unspecified

== ENCOUNTER → 2017-06-07 | Outpatient (CLI) | payer OTHER ==
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
== END | disposition home or self-care (01) ==
LOC: M PAIN 09:15
PROVIDERS: ATTEND Nurse Practitioner Family
DX: G89.29 Other chronic pain (principal); M79.1 Myalgia; M06.9 Rheumatoid arthritis, unspecified; M54.9 Dorsalgia, unspecified; M96.1 Postlaminectomy syndrome, not elsewhere classified; E11.9 Type 2 diabetes mellitus without complications; I10 Essential (primary) hypertension; E03.9 Hypothyroidism, unspecified; F33.9 Major depressive disorder, recurrent, unspecified; M05.79 Rheumatoid arthritis with rheumatoid factor of multiple sites without organ or systems involvement; J44.9 Chronic obstructive pulmonary disease, unspecified; K21.9 Gastro-esophageal reflux disease without esophagitis; G56.03 Carpal tunnel syndrome, bilateral upper limbs; Z79.899 Other long term (current) drug therapy; Z79.01 Long term (current) use of anticoagulants; Z79.51 Long term (current) use of inhaled steroids; Z88.8 Allergy status to other drugs, medicaments and biological substances; F17.210 Nicotine dependence, cigarettes, uncomplicated

== ENCOUNTER → 2017-06-15 | Outpatient (CLI) | payer OTHER ==
[~2017-06-15] MED LIST changes: +BUPIVACAINE HCL 0.25% 30 ML VIAL As Ordered ONE; +ISOVUE-M 300 61% 15ML VIAL (Q9967) As Ordered ONE; +LIDOCAINE 1% SDV INJ 30 ML VIAL As Ordered ONE; +TRIAMCINOLONE ACETONIDE SUSP 40 MG/ML VIAL (J3301) As Ordered ONE
--- NOTE | 2017-06-15 12:08 | REP ---
SI joint series: Bilateral. Seven views. History: SI joint injection for pain. 51 seconds of fluoroscopy time is reported. Findings: A sequence of seven last image hold fluoroscopic spot radiographs of the SI joints document various needle positions and contrast injections associated with SI joint injection procedure. Signed by Kaiser Galicia MD 06/15/2017 01:39 P
--- NOTE | 2017-06-21 00:13 | ECWPNPC ---
PATIENT NAME: NAVNEET MARTIN : 1955 GENDER: FEMALE VISIT DATE: 06/15/2017 DISCHARGE DATE: 06/15/17 1052 VISIT LOCKED DATE TIME: PHYSICIAN: TAD BRAUN RESOURCE: TAD BRAUN REASON FOR APPOINTMENT 1. SIJ HISTORY OF PRESENT ILLNESS HISTORY OF PRESENT ILLNESS: PAIN THE PATIENT DESCRIBES THE PAIN... FALL RISK SCREENING: SCREENING :NO FALLS IN THE PAST YEAR CURRENT MEDICATIONS TAKING TYLENOL 8 HOUR 650 MG TABLET EXTENDED RELEASE 1 TABLET NEEDED ORALLY EVERY 8 HRS, NOTES: 06/13/17@2200 TAKING IRON 50 MG TABLET 1 TABLET ORALLY ONCE A DAY( OTC), NOTES: 06/14/1708 TAKING VITAMIN C 500 MG TABLET CHEWABLE 1 TABLET ORALLY ONCE A DAY, NOTES: TAKING MAGNESIUM 500 MG TABLET 1 TABLET WITH A MEAL ORALLY ONCE A DAY, NOTES: 06/14/1708 TAKING FOLIC ACID 1 MG TABLET 1 TAB(S) ORALLY DAILY, NOTES: 06/14/1708 TAKING SYNTHROID 125 MCG TABLET 1 TABLET ON AN EMPTY STOMACH IN THE MORNING ORALLY ONCE A DAY, NOTES: 06/14/1708 TAKING SERTRALINE HCL 50 MG TABLET 1 TABLET ORALLY ONCE A DAY, NOTES: 06/14/17 TAKING GABAPENTIN 300 MG CAPSULE 1 CAPSULE ORALLY THREE TIMES A DAY, NOTES: 06/14/17@200 TAKING DRISDOL 50,000 UNITS TABLET DIRECTED ORAL WEEKLY, NOTES: 06/14/1708 TAKING VITAMIN D3 SUPER STRENGTH 2000 UNIT TABLET 1 TABLET ORALLY ONCE A DAY, NOTES: 06/14/1708 TAKING DUONEB 0.5-2.5 (3) MG/3ML SOLUTION 3 ML INHALATION THREE TIMES DAILY, NEEDED, NOTES: 6 DAYS AGO TAKING ADVAIR HFA 115-21 MCG/ACT AEROSOL 2 PUFFS INHALATION TWICE A DAY, NOTES: 3-4 WEEKS AGO TAKING ALBUTEROL SULFATE HFA 108 (90 BASE) MCG/ACT AEROSOL SOLUTION 2 PUFFS INHALATION EVERY 4 HOURS NEEDED, NOTES: 3 DAYS TAKING PLAVIX 75 MG TABLET 1 TABLET ORALLY ONCE A DAY, NOTES: 06/12/17@0800 TAKING CARVEDILOL 3.125 MG TABLET DIRECTED ORALLY BID, NOTES: 06/14/17@0800 TAKING LISINOPRIL 20 MG TABLET 1 TABLET ORALLY DAILY, NOTES: 06/14/17@08 TAKING PLAQUENIL 200 MG TABLET 1 TABLET WITH FOOD OR MILK ORALLY ONCE A DAY, NOTES: 06/12/17@799 TAKING ROBAXIN 500 MG TABLET 1 TABLET ORALLY FOUR TIMES A DAY NEEDED, NOTES: 06/14/17@08 TAKING ALLOPURINOL 100 MG TABLET 1 TABLET ORALLY ONCE A DAY, NOTES: 06/14/17@799 TAKING BACID 1 TABLET 1 TAB(S) ORALLY TWICE DAILY, NOTES: 06/14/17 TAKING MOBIC 15 MG TABLET 1 TABLET ORALLY ONCE A DAY PRN, NOTES: 06/14/17@799 TAKING EZETIMIBE 10 MG TABLET 1 TABLET ORALLY ONCE A DAY, NOTES: 06/14/17 TAKING NITROGLYCERIN 0.4 MG TABLET SUBLINGUAL DIRECTED SUBLINGUAL ONE AT ONSET OF CHEST PAIN OR PRESSURE. 2ND IF NOT RESOLVED IN 5 MIN. IF PERSISTS, GO TO ER, NOTES: 1 MONTH AGO NOT-TAKING REPATHA SURECLICK 140 MG/ML SOLUTION AUTO-INJECTOR 1 ML SUBCUTANEOUS EVERY TWO WEEKS NOT-TAKING PRALUENT 75 MG/ML SOLUTION PEN-INJECTOR 1 ML SUBCUTANEOUS EVERY TWO WEEKS MEDICATION LIST REVIEWED AND RECONCILED WITH THE PATIENT PAST MEDICAL HISTORY DM-2 DIET CONTROLLED HYPERTENSION HYPOTHYROIDISM H/O SYNCOPE/HYPOTENSION/HTN/ 15 DAY EVENT MONITOR UNREMARKABLE- GEEY- DR NASSAR PEPTIC ULCER DISEASE DIAGNOSED 2010. (EGD AND COLONOSCOPY 2 011) DR. SKELTON DEPRESSION RA OF CERVICAL/THORACIC/LUMBAR SPINE/LEFT SHOULDER/BOTH KNEES- DR SOTO & DR. WAGNER RSD- DR GUIDRY (NO LONGER FOLLOWING WITH DR. GUIDRY) GOUT QUESTIONABLE H/O PE 2 YRS AGO, NOT ON ANTICOAGULATION COPD/CHRONIC BRONCHITIS ASTHMA AVASCULAR NECROSIS OF RIGHT SHOULDER- SYR- DR SOTO- [facility] ORTHO EKG 05/07 PNEUMO 05/05 EMG/NCS LES [place] SPINE AND WELLNESS- SM PN/ L5-S1 RADICULOPATHY MAMMO 05/08 NEG CARPAL TUNNEL-- BILATERAL GERD NO KNEE CAPS BILATERAL STATES SHE'S A HEMOPHILIAC ALLERGIES ASPIRIN: NAUSEA/VOMITING, CONVULSIONS: ALLERGY STATINS (FOR ALLERGY USE ONLY): RASH: ALLERGY SOCIAL HISTORY GENERAL: TOBACCO USE ARE YOU A:CURRENT SMOKER ARE YOU INTERESTED IN QUITTING?NOT READY TO QUIT DISCUSSED HEALTH ISSUES R/T SMOKING PT IS NOT READY TO QUIT SMOKING YET COUNSELED THE PATIENT ON SMOKING EFFECTS, EDUCATION [id number]/22/2017 HOW MANY CIGARETTES A DAY DO YOU SMOKE?5 OR LESS HOW SOON AFTER YOU WAKE UP DO YOU SMOKE YOUR FIRST CIGARETTE?31-60 MIN HOW OFTEN DO YOU SMOKE CIGARETTES?EVERY DAY PATIENT COUNSELED ON THE DANGERS OF TOBACCO USE AND URGED TO QUIT:06/15/2017 SMOKING CESSATION INFORMATION GIVEN05/11/2017 BMI CARE GOAL FOLLOW-UP ABOVE NORMAL BMI FOLLOW-UPGIVING ENCOURAGEMENT TO EXERCISE ALCOHOL SCREENING DID YOU HAVE A DRINK CONTAINING ALCOHOL IN THE PAST YEAR?YES HOW OFTEN DID YOU HAVE A DRINK CONTAINING ALCOHOL IN THE PAST YEAR?MONTHLY OR LESS (1 POINT) HOW MANY DRINKS DID YOU HAVE ON A TYPICAL DAY WHEN YOU WERE DRINKING IN THE PAST YEAR?1 OR 2 (0 POINTS) HOW OFTEN DID YOU HAVE SIX OR MORE DRINKS ON ONE OCCASION IN THE PAST YEAR?NEVER (0 POINTS) POINTS1 INTERPRETATIONNEGATIVE RECREATIONAL DRUG USE DENIES. 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 DIET: CONTROLS DIABETES BY HER DIET INTAKE. EXERCISE: WALKS. MARITAL STATUS: [place]. OTHERS AT HOME: SPOUSE, ANA(SISTER), SON (SYDNEY 41 YRS OLD). PETS: 1 DOG. BUDDHIST JAIN. LANGUAGE [place]. 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 LEARNING BARRIERS / SPECIAL NEEDS CHANGE FROM LAST VISIT?NO BARRIERS TO LEARNING?NO HEARING IMPAIRED?NO VISION IMPAIRED?YES :CORRECTIVE LENSES COGNITIVELY IMPAIRED?NO READINESS TO LEARN?YES LEARNING PREFERENCES?YES :BOOKLETS, HANDOUTS LEARNING CAPABILITIES PRESENT?YES EMOTIONAL BARRIERS?NO SPECIAL DEVICES?YES :HERMELINDA NOVAK AUDIO VISUAL ARTS DIRECTOR NEEDED?NO PAIN CLINIC PFS, CLERGY, PUBLIC HEALTH REFERRALS PFS REFERRAL NEEDED?NO CLERGY REFERRAL NEEDED?NO PUBLIC HEALTH REFERRAL NEEDED?NO HAS THE PATIENT BEEN EDUCATED REGARDING HIS/HER PLAN OF CARE?YES HAS THE PATIENT BEEN EDUCATED REGARDING PAIN, THE RISK FOR PAIN, THE IMPORTANCE OF EFFECTIVE PAIN MANAGEMENT, AND THE PAIN ASSESSMENT PROCESS?YES ADVANCE DIRECTIVES HEALTH CARE PROXY?YES NAME OF HCP [facility] CONTACT # FOR HCP [phone] DO YOU HAVE A COPY WITH YOU?NO DO YOU HAVE A DNR?NO LIVING WILL?NO WOULD YOU LIKE MORE INFORMATION?NO POWER OF OPERATION SPECIALIST?YES NAME OF POA? , [place] PHONE # OF POA? [phone] DO YOU HAVE A COPY WITH YOU? ON FILE HOUSING: OWNS HOME. DOMESTIC VIOLENCE NONE. SMOKIN 5 CIGS PER DAY. H/O 30 PACK YEARS. 12/09/16 ORIENTATION TO PLAN OF CARE FOR THE PAIN CENTER REVIEWED WITH PATIENT AND SHE VERBALIZED UNDERSTANDING. AD. REVIEW OF SYSTEMS REVIEWED BY: PROVIDER: . CONSTITUTIONAL: ANY CHANGE IN YOUR MEDICAL CONDITION? NO . CHILLS NO . FEVER NO . INFECTION: DO YOU HAVE NEW INFECTIONS? NO . DO YOU HAVE HISTORY OF MRSA? NO . MUSCULOSKELETAL: ANY NEW PATTERNS OF PAIN OR NUMBNESS? NO . GASTROENTEROLOGY: ANY NEW CHANGE IN BOWEL CONTROL? NO . GENITOURINARY: ANY NEW CHANGE IN BLADDER CONTROL? NO . IS THERE A CHANCE YOU COULD BE ? NO . HEMATOLOGY/LYMPH: DO YOU TAKE ANY BLOOD THINNERS? (FOR EXAMPLE- COUMADIN, PLAVIX, AGGRENOX, PLATEL, PRADAXA, OR XARELTO) NO . WHEN WAS YOUR LAST DOSE? DATE: TIME: . NEUROLOGY: HAVE YOU FALLEN IN THE PAST 6 MONTHS? NO . ANY NEW EXTREMITY NUMBNESS OR WEAKNESS? NO . CARDIOLOGY: DO YOU HAVE A PACEMAKER OR DEFIBRILLATOR? NO . RESPIRATORY: HAVE YOU BEEN SICK IN THE PAST WEEK? NO . FEVER NO . FLU LIKE SYMPTOMS? NO . COUGH NO . INTEGUMENTARY: DO YOU HAVE ANY RASHES OR OPEN SORES? NO . ALLERGIC/IMMUNO: ARE YOU ALLERGIC TO SHELLFISH OR IV DYE? NO . ANY NEW ALLERGIES? NO . PSYCHIATRIC: DO YOU HAVE THOUGHTS OF HURTING YOURSELF OR SOMEONE ELSE? NO . ARE YOU ABUSED, NEGLECTED, OR IN AN UNSAFE ENVIRONMENT? NO . ENDOCRINOLOGY: ARE YOU DIABETIC? YES . OTHER: DO YOU NEED ANY PRESCRIPTIONS? NO . IF YES, PLEASE LIST: ____ . ANY NEW PROBLEMS WITH YOUR MEDICATIONS? NO . WHEN DID YOU LAST EAT? ____06/14/17 . WHEN DID YOU LAST DRINK? ____0800 . WHAT DID YOU LAST DRINK? ____WATER . NAME OF PERSON DRIVING YOU HOME? ____ . DO YOU HAVE ANY OTHER QUESTIONS OR CONCERNS NO . VITAL SIGNS WT 178 LBS, HT 62 IN, BMI 32.55 INDEX, BP 141/65 MM HG, HR 66 /MIN, RR 18 /MIN, OXYGEN SAT % 98, SAFE IN ENV? (Y/N) YES, REVIEWED BY: VD. 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 TAD BRAUN DOCUMENT CLERK NONE ANESTHESIA LOCAL PRE PROCEDURE NOTE PATIENT WITH HISTORY OF CHRONIC LOW BACK PAIN. I EVALUATED THE PATIENT AND REVIEWED THE CHART. I WENT OVER THE RISKS, ALTERNATIVES, AND BENEFITS ASSOCIATED WITH THIS PROCEDURE. THE PATIENT WOULD LIKE TO PROCEED AND GAVE CONSENT TO PERFORM THE PROCEDURE. THE PATIENT DENIES UNEXPLAINABLE WEIGHT LOSS, FEVER, CHILLS, OR NEW CHANGES IN URINARY OR BOWEL CONTROL DESCRIPTION OF PROCEDURE THE PATIENT WAS BROUGHT TO THE PROCEDURE ROOM AND PLACED IN THE PRONE POSITION. THE LUMBOSACRAL AREA WAS CLEANED WITH CHLORAPREP SOLUTION AND DRAPED ASEPTICALLY. THE PROCEDURE WAS DONE UNDER STERILE CONDITIONS. I CHECKED LATERALITY AND THE LEVEL WHERE THE PROCEDURE WAS GOING TO BE PERFORMED WITH THE PATIENT AND THE SUPPORTING STAFF AT THE MOMENT OF THE TIME OUT IN THE PROCEDURE ROOM. UNDER FLUOROSCOPIC GUIDANCE, TARGET POINT WAS SELECTED AT THE LOWER BORDER OF THE RIGHT AND LEFT SACROILIAC JOINT. TARGET POINT WAS SELECTED AFTER MEDIAL ROTATION AND TILT OF THE MAGNIFIER OF THE C-ARM. LIDOCAINE WAS USED TO NUMB THE SKIN AND SUBCUTANEOUS TISSUE BELOW IT. A SPINAL NEEDLE, 22-GAUGE, WAS ADVANCED UNDER FLUOROSCOPIC GUIDANCE AND FOLLOWING PATIENT FEEDBACK UNTIL THE TARGET AREA WAS TOUCHED. THE POSITION OF THE NEEDLE WAS VERIFIED WITH AP AND LATERAL VIEWS. AFTER PROPER POSITION OF THE NEEDLE WAS ACHIEVED, ISOVUE M DYE 30%, 0.25 ML, WAS INJECTED SHOWING SPREAD OF THE DYE. THEN, A SOLUTION OF 20 MG OF KENALOG WAS INJECTED IN RIGHT JOINT WITH 3 ML OF BUPIVACAINE 0.125%. THERE WAS NO EVIDENCE OF BLOOD, PARESTHESIA OR CEREBROSPINAL FLUID DURING THE PROCEDURE. THE PATIENT WAS SENT TO THE RECOVERY ROOM. THE PATIENT WAS MOVING THE EXTREMITIES AND DOING WELL. THERE WAS NO COMPLICATION DURING THE PROCEDURE. FLUOROSCOPY TIME WAS 51 SECONDS POST PROCEDURE NOTE THE PATIENT WILL BE SEEN IN A FOLLOW UP IN THE NEXT FEW WEEKS. INSTRUCTIONS WERE GIVEN, QUESTIONS WERE ANSWERED, AND THE PATIENT EXPRESSED UNDERSTANDING AND AGREED WITH THE PLAN. I, NURYS EARLY, DOCUMENTED THE ABOVE INFORMATION ACTING A SCRIBE FOR DR. BRAUN. I HAVE REVIEWED THE ABOVE DOCUMENT, WRITTEN BY NURYS EARLY SCRIBE AND I VERIFY THAT IT IS [facility] FLUORO GUIDANCE (PAIN)[id number] PROCEDURE CODES 81602 INJECT SACROILIAC JOINT, MODIFIERS: 50 [id number] RADXPS IN END [id number] PXD DISPOSITION & COMMUNICATION FOLLOW UP 3 WEEKS ELECTRONICALLY SIGNED BY TAD BRAUN MD ON 06/20/2017 AT 02:28 PM EST DISCLAIMER : THIS IS A VISIT SUMMARY EXTRACTED FROM THE [email or web address] CHART. IT IS NOT A COPY OF THE [email or web address] PROGRESS NOTE. MTDD
== END ==
LOC: M PAIN 08:30
PROVIDERS: ATTEND Anesthesiology
DX: G89.29 Other chronic pain (principal); M46.1 Sacroiliitis, not elsewhere classified; M53.88 Other specified dorsopathies, sacral and sacrococcygeal region; E11.9 Type 2 diabetes mellitus without complications; E03.9 Hypothyroidism, unspecified; E55.9 Vitamin D deficiency, unspecified; M10.9 Gout, unspecified; I10 Essential (primary) hypertension; E78.2 Mixed hyperlipidemia; J44.9 Chronic obstructive pulmonary disease, unspecified; F32.9 Major depressive disorder, single episode, unspecified; K21.9 Gastro-esophageal reflux disease without esophagitis; M05.79 Rheumatoid arthritis with rheumatoid factor of multiple sites without organ or systems involvement; I25.10 Atherosclerotic heart disease of native coronary artery without angina pectoris; F17.210 Nicotine dependence, cigarettes, uncomplicated; Z88.6 Allergy status to analgesic agent; Z88.8 Allergy status to other drugs, medicaments and biological substances; Z79.01 Long term (current) use of anticoagulants; Z79.1 Long term (current) use of non-steroidal anti-inflammatories (NSAID); Z79.899 Other long term (current) drug therapy
CPT/HCPCS: 27096; J3301; Q9967

== ENCOUNTER → 2017-06-24 | Outpatient (REF) | payer OTHER ==
[~2017-06-24] MED LIST changes: -BUPIVACAINE HCL 0.25% 30 ML VIAL As Ordered ONE; -ISOVUE-M 300 61% 15ML VIAL (Q9967) As Ordered ONE; -LIDOCAINE 1% SDV INJ 30 ML VIAL As Ordered ONE; -TRIAMCINOLONE ACETONIDE SUSP 40 MG/ML VIAL (J3301) As Ordered ONE
== END ==
LOC: M SFHCPLAZ 09:32
PROVIDERS: ATTEND Nurse Practitioner Family
DX: E03.9 Hypothyroidism, unspecified (principal); J44.9 Chronic obstructive pulmonary disease, unspecified; Z53.9 Procedure and treatment not carried out, unspecified reason

== ENCOUNTER → 2017-08-22 | Outpatient (REF) | payer OTHER ==
[2017-08-22 12:20] LABS: BASO # 0.1 10^3/uL (0.0-0.2); BASO % 0.4 % (0.0-1.0); EOS # 0.3 10^3/uL (0.0-0.50); EOS % 2.7 % (0.0-3.0); HEMATOCRIT 39.1 % (36.0-47.0); HEMOGLOBIN 12.6 g/dl (12.0-16.0); IMMATURE GRANULOCYTE % 0.2 % (0-0); LYMPH # 2.2 10^3/uL (1.5-4.5); LYMPH % 17.4 % (24.0-44.0); MEAN CORPUSCULAR HEMOGLOBIN 33.2 pg (27.0-33.0); MEAN CORPUSCULAR HGB CONC 32.2 g/dl (32.0-36.5); MEAN CORPUSCULAR VOLUME 102.9 fl (80.0-96.0); MONO # 1.1 10^3/uL (0.0-0.8); MONO % 8.7 % (0.0-5.0); NEUTROPHILS % 70.6 % (36.0-66.0); PLATELET COUNT, AUTOMATED 234 10^3/uL (150-450); RED CELL DISTRIBUTION WIDTH 13.7 % (11.5-14.5); WHITE BLOOD COUNT 12.8 10^3/uL (4.0-10.0)
== END ==
LOC: M SFHCPLAZ 09:10
DX: E03.9 Hypothyroidism, unspecified (principal); J44.9 Chronic obstructive pulmonary disease, unspecified
CPT/HCPCS: 84443

== ENCOUNTER → 2017-08-29 | Outpatient (CLI) | payer OTHER | LOC: M WHC 09:27 | DX: Z12.31 Encounter for screening mammogram for malignant neoplasm of breast (principal); Z78.0 Asymptomatic menopausal state | CPT/HCPCS: 77067 ==

== ENCOUNTER → 2017-10-06 | Outpatient (REF) | payer OTHER ==
[2017-10-06 13:38] LABS: ALBUMIN 3.4 GM/DL (3.2-5.2); ALBUMIN/GLOBULIN RATIO 1.31 (1.00-1.93); ALKALINE PHOSPHATASE 95 U/L (45-117); ALT/SGPT 7 U/L (12-78); ANION GAP 9 MEQ/L (8-16); AST/SGOT 9 U/L (7-37); BILIRUBIN,TOTAL 0.3 MG/DL (0.2-1.0); BLOOD UREA NITROGEN 10 MG/DL (7-18); CALCIUM LEVEL 8.5 MG/DL (8.8-10.2); CARBON DIOXIDE LEVEL 24 MEQ/L (21-32); CHLORIDE LEVEL 111 MEQ/L (98-107); CREATININE FOR GFR 0.61 MG/DL (0.55-1.30); FREE T4 1.73 NG/DL (0.76-1.46); GLOMERULAR FILTRATION RATE > 60.0 (>45); GLUCOSE, FASTING 76 MG/DL (70-100); SODIUM LEVEL 144 MEQ/L (136-145)
== END ==
LOC: M SFHCPLAZ 10:50
DX: E03.9 Hypothyroidism, unspecified (principal); I10 Essential (primary) hypertension
CPT/HCPCS: 84443

== ENCOUNTER 2017-12-22 15:22 | Emergency (ER) | payer OTHER | END 2017-12-22 16:50 | disposition home or self-care (01) | LOC: M ED 15:22 | DX: S00.03XA Contusion of scalp, initial encounter (principal); S16.1XXA Strain of muscle, fascia and tendon at neck level, initial encounter; W01.198A Fall on same level from slipping, tripping and stumbling with subsequent striking against other object, initial encounter; Y92.89 Other specified places as the place of occurrence of the external cause; I10 Essential (primary) hypertension; G89.29 Other chronic pain; E07.9 Disorder of thyroid, unspecified; J45.909 Unspecified asthma, uncomplicated; K21.9 Gastro-esophageal reflux disease without esophagitis; Z88.6 Allergy status to analgesic agent; Z91.018 Allergy to other foods; Z88.5 Allergy status to narcotic agent; Z88.8 Allergy status to other drugs, medicaments and biological substances; Z91.048 Other nonmedicinal substance allergy status; Z79.899 Other long term (current) drug therapy; Z79.02 Long term (current) use of antithrombotics/antiplatelets | CPT/HCPCS: 70450 ==

== ENCOUNTER → 2018-02-23 | Outpatient (CLI) | payer OTHER | LOC: M RAD 08:45 | DX: Z12.2 Encounter for screening for malignant neoplasm of respiratory organs (principal); F17.210 Nicotine dependence, cigarettes, uncomplicated; R91.1 Solitary pulmonary nodule; J84.10 Pulmonary fibrosis, unspecified | CPT/HCPCS: G0297 ==

== ENCOUNTER → 2018-02-23 | Outpatient (REF) | payer OTHER ==
[2018-02-23 13:10] LABS: ALBUMIN 3.2 GM/DL (3.2-5.2); ALBUMIN/GLOBULIN RATIO 1.07 (1.00-1.93); ALKALINE PHOSPHATASE 106 U/L (45-117); ALT/SGPT 9 U/L (12-78); ANION GAP 9 MEQ/L (8-16); AST/SGOT 9 U/L (7-37); BILIRUBIN,TOTAL 0.4 MG/DL (0.2-1.0); BLOOD UREA NITROGEN 11 MG/DL (7-18); CALCIUM LEVEL 8.7 MG/DL (8.8-10.2); CARBON DIOXIDE LEVEL 28 MEQ/L (21-32); CHLORIDE LEVEL 108 MEQ/L (98-107); CREATININE FOR GFR 0.67 MG/DL (0.55-1.30); FREE T4 1.21 NG/DL (0.76-1.46); GLOMERULAR FILTRATION RATE > 60.0 (>45); GLUCOSE, FASTING 79 MG/DL (70-100); POTASSIUM SERUM 4.2 MEQ/L (3.5-5.1); SODIUM LEVEL 145 MEQ/L (136-145); THYROID STIMULATING HORMONE 0.624 uIU/ML (0.358-3.740); TOTAL PROTEIN 6.2 GM/DL (6.4-8.2)
== END ==
LOC: M SFHCPLAZ 09:18
DX: E78.2 Mixed hyperlipidemia (principal); E03.9 Hypothyroidism, unspecified
CPT/HCPCS: 84443

== ENCOUNTER 2018-09-19 10:04 | Inpatient (IN) | payer OTHER ==
[~2018-09-19] VITALS: Ht 149.9 cm; Wt 70.9 kg
[~2018-09-19 10:04] MED LIST changes: -ALEV1TAB PO; -ALEV220T22 PO; -AZIT500T2 PO; -CEFD300CAP PO; -FERR1TAB8 PO; -IPRA0.00 NEB; -PRED10TA2 PO; -SULF500T2 PO; -SYNT150T PO; -VENTAER INH; -VITA100072 PO
[2018-09-19] MEDS ORDERED: SULF500T2 PO (11:04)
[2018-09-19] MEDS ORDERED: IPRATROPIUM 0.5MG/ALBUTEROL 2.5MG INH SOL UD 3ML (DUONEB)(J7620) NEB ONE (11:45)
[2018-09-19] MEDS ORDERED: methylPREDNISolone INJ 125 MG/2 ML VIAL (J2930) IV ONE (11:45)
[2018-09-19] MEDS ORDERED: LevoFLOXacin IV 750 MG in APPROPRIATE DILUENT 1 EA IV ONE (11:45)
[2018-09-19] MEDS ORDERED: NS 1,000 ML IV ONE (11:45)
[2018-09-19 11:58] LABS: BASO # 0.1 10^3/uL (0.0-0.2); BASO % 0.3 % (0.0-1.0); EOS % 0.2 % (0.0-3.0); HEMATOCRIT 41.4 % (36.0-47.0); HEMOGLOBIN 13.7 g/dl (12.0-15.5); LYMPH # 1.8 10^3/uL (1.5-4.5); LYMPH % 10.4 % (24.0-44.0); MEAN CORPUSCULAR HEMOGLOBIN 32.2 pg (27.0-33.0); MEAN CORPUSCULAR HGB CONC 33.1 g/dl (32.0-36.5); MEAN CORPUSCULAR VOLUME 97.4 fl (80.0-96.0); MONO # 1.8 10^3/uL (0.0-0.8); MONO % 10.3 % (0.0-5.0); NEUTROPHILS # 13.4 10^3/uL (1.8-7.7); NEUTROPHILS % 78.3 % (36.0-66.0); PLATELET COUNT, AUTOMATED 153 10^3/uL (150-450); RED BLOOD COUNT 4.25 10^6/uL (4.00-5.40)
[2018-09-19 12:33] LABS: ALBUMIN 3.4 GM/DL (3.2-5.2); ALT/SGPT 9 U/L (12-78); BILIRUBIN,DIRECT < 0.1 MG/DL (0.0-0.2); BILIRUBIN,TOTAL 0.7 MG/DL (0.2-1.0); BLOOD UREA NITROGEN 14 MG/DL (7-18); CALCIUM LEVEL 8.9 MG/DL (8.8-10.2); CARBON DIOXIDE LEVEL 24 MEQ/L (21-32); CHLORIDE LEVEL 107 MEQ/L (98-107); CREATININE FOR GFR 0.74 MG/DL (0.55-1.30); GLOMERULAR FILTRATION RATE > 60.0 (>45); GLUCOSE, FASTING 110 MG/DL (70-100); POTASSIUM SERUM 3.3 MEQ/L (3.5-5.1); SODIUM LEVEL 138 MEQ/L (136-145)
[2018-09-19 12:38] LABS: INFLUENZA A AMPLIFICATION POSITIVE (NEGATIVE); INFLUENZA B AMPLIFICATION NEGATIVE (NEGATIVE)
[2018-09-19] MEDS ORDERED: SYNT150T PO (14:00)
[2018-09-19] MEDS ORDERED: VENTAER INH (14:00)
[2018-09-19] MEDS ORDERED: VITA100072 PO (14:01)
[2018-09-19] MEDS ORDERED: ALEV1TAB PO (14:01)
[2018-09-19] MEDS ORDERED: ALEV220T22 PO (14:01)
[2018-09-19] MEDS ORDERED: IPRA0.00 NEB (14:01)
[2018-09-19] MEDS ORDERED: NITROGLYCERIN 0.4 MG SUBL TABLET SL PRN (15:00)
[2018-09-19] MEDS ORDERED: IPRATROPIUM 0.5MG/ALBUTEROL 2.5MG INH SOL UD 3ML (DUONEB)(J7620) NEB PRN (15:15)
[2018-09-19] MEDS ORDERED: FERR1TAB8 PO (15:33)
[2018-09-19] MEDS: KCL 10MEQ/100ML SWI (KRUN) 10 MEQ in APPROPRIATE DILUENT 1 EA IV SCH ×2 (16:11→17:00)
[2018-09-19] MEDS: GABAPENTIN 300 MG CAP PO SCH ×2 (16:12→22:03)
--- NOTE | 2018-09-19 16:19 | HPE ---
DATE OF ADMISSION: 09/19/2018 A 63-year-old female with a past medical history of rheumatoid arthritis, history of gout, chronic obstructive pulmonary disease (COPD), non-oxygen (O2) dependent, diabetes, presents to the emergency room after a CT scan that was done as an outpatient showed she had multifocal pneumonia. The patient did go on to explain that in the last 4 days she has not been feeling well with cough productive of yellow sputum, a subjective feeling of fever, aches, and chills. The CT scan was done as an elective followup for pulmonary nodule and hence this new finding was discovered. The patient was started on intravenous (IV) Levaquin, was given IV Solu-Medrol and DuoNebs, and she feels somewhat better. Flu swab came back positive for flu A and with all this involved, she will be admitted for further management. PAST MEDICAL HISTORY: Rheumatoid arthritis. History of gout. Non-O2 dependent COPD. Depression. Hyperlipidemia. Hypertension. Diabetes. Hypothyroidism. History of peptic ulcer disease. Asthma. ALLERGIES: She has drug allergies to prednisone and aspirin. FAMILY HISTORY: Noncontributory. SOCIAL HISTORY: The patient used to be a heavy smoker, quit many years ago. Denies alcohol or illicit drugs. MEDICATIONS: She takes at home are as follows: - albuterol as needed - Aleve 220 mg by mouth every 12 hours as needed - allopurinol 100 mg orally daily - ascorbic acid 500 mg orally daily - Coreg 3.125 mg orally twice daily - Plavix 75 mg orally daily - cyanocobalamin 1000 mcg orally daily - ezetimibe 10 mg orally daily - ferrous sulfate 325 mg orally daily - folic acid 1 mg orally daily - gabapentin 300 mg orally three times a day - lactobacillus one tablet orally twice daily - Synthroid 150 mcg orally daily - lisinopril 20 mg orally daily - magnesium oxide 500 mg orally daily - meloxicam 15 mg orally daily - Robaxin one tablet orally four times a day as needed - nitroglycerin sublingual as needed - Solu-Medrol fluticasone two puffs inhaled twice daily - sertraline 50 mg orally daily - sulfasalazine 500 mg orally daily - vitamin D 2000 units orally daily REVIEW OF SYSTEMS: Negative all ten major systems except what has been mentioned in the history of the present illness. Vital Signs: Blood pressure is 113/64, heart rate is 101, regular, respiratory rate is 19, temperature 96.8, oxygen saturation 92% on room air. Head is atraumatic, normocephalic. Neck supple. No jugular venous distention (JVD). Lungs have scattered rhonchi, S1, S2 audible. No murmurs appreciated. Abdomen: Soft, positive bowel sounds. No pedal edema. Skin: Intact. Neurologic Examination: Patient awake, alert, oriented times three. LABORATORY: WBC is 17, hemoglobin 13.7, hematocrit 41.4, platelets are 153,000. Sodium 138, potassium 3.3, chloride 107, CO2 24, anion gap 7, BUN is 14, creatinine 0.74, glucose is 110, lactic acid 1.3. IMPRESSION: 1. Community-acquired pneumonia. 2. Flu A positive. 3. Chronic obstructive pulmonary disease exacerbation. PLAN: The patient will be admitted to the progressive care unit (PCU). Will start the patient on IV Rocephin and Zithromax and start her on DuoNebs every 4 hours as needed, as well as Solu-Medrol 40 mg IV every 8 hours. Will get sputum cultures. Blood cultures have already been sent. Will continue her other preadmission medications and continue her care in the PCU. Will also replete her potassium level as well. SHANTAL
[2018-09-19] MEDS: cefTRIAXone SOD 1 GM in D5W MINI-BAG PLUS 50 ML IV SCH (18:20)
[2018-09-19 21:30] VITALS: BP 113/54
[2018-09-19] MEDS: AZITHROMYCIN INJ 500 MG, VIAL MATE ADAPTER 1 EACH in D5W 250 ML IV SCH (22:02)
[2018-09-19] MEDS: CARVedilol 3.125 MG TAB PO SCH (22:03)
[2018-09-19] MEDS: LACTOBACILLUS ACIDOPHILUS CAP (BACID) PO SCH (22:03)
[2018-09-19] MEDS: methylPREDNISolone INJ 40 MG/1 ML VIAL (J2920) IV SCH (22:03)
[2018-09-19] MEDS: METHOCARBAMOL 500 MG TAB PO PRN (22:13)
[2018-09-19] MEDS: ADVAIR HFA 115/21MCG INHALER INH SCH (23:24)
[2018-09-20] VITALS (8 sets, daily range): BP systolic 102–156; BP diastolic 57–94
[2018-09-20] MEDS: raNITIdine SYRUP 150 MG/10 ML UDC PO SCH ×3 (00:05→22:02)
[2018-09-20] MEDS: LEVOTHYROXINE 150MCG TABLET (0.15MG) PO SCH (06:27)
[2018-09-20] MEDS: methylPREDNISolone INJ 40 MG/1 ML VIAL (J2920) IV SCH ×3 (06:27→20:53)
[2018-09-20 06:42] LABS: BASO % 0.1 % (0.0-1.0); HEMATOCRIT 35.3 % (36.0-47.0); HEMOGLOBIN 11.9 g/dl (12.0-15.5); LYMPH # 1.4 10^3/uL (1.5-4.5); LYMPH % 9.9 % (24.0-44.0); MEAN CORPUSCULAR HEMOGLOBIN 32.1 pg (27.0-33.0); MEAN CORPUSCULAR HGB CONC 33.7 g/dl (32.0-36.5); MEAN CORPUSCULAR VOLUME 95.1 fl (80.0-96.0); MONO # 0.4 10^3/uL (0.0-0.8); MONO % 3.1 % (0.0-5.0); NEUTROPHILS # 12.1 10^3/uL (1.8-7.7); NEUTROPHILS % 86.4 % (36.0-66.0); PLATELET COUNT, AUTOMATED 156 10^3/uL (150-450); RED BLOOD COUNT 3.71 10^6/uL (4.00-5.40)
[2018-09-20 07:08] LABS: BLOOD UREA NITROGEN 13 MG/DL (7-18); CALCIUM LEVEL 8.8 MG/DL (8.8-10.2); CARBON DIOXIDE LEVEL 23 MEQ/L (21-32); CHLORIDE LEVEL 110 MEQ/L (98-107); CREATININE FOR GFR 0.53 MG/DL (0.55-1.30); GLOMERULAR FILTRATION RATE > 60.0 (>45); GLUCOSE, FASTING 136 MG/DL (70-100); SODIUM LEVEL 141 MEQ/L (136-145)
[2018-09-20] MEDS: CYANOCOBALAMIN 500 MCG TAB PO SCH (08:23)
[2018-09-20] MEDS: ASCORBIC ACID 500 MG TAB PO SCH (08:23)
[2018-09-20] MEDS: CLOPIDOGREL 75 MG TAB PO SCH (08:23)
[2018-09-20] MEDS: OMEPRAZOLE 20 MG CAP PO SCH (08:23)
[2018-09-20] MEDS: FERROUS SULFATE 325MG TAB PO SCH (08:23)
[2018-09-20] MEDS: SERTRALINE HCL 50 MG TAB PO SCH (08:23)
[2018-09-20] MEDS: FOLIC ACID 1 MG TAB PO SCH (08:23)
[2018-09-20] MEDS: EZETIMIBE 10 MG TAB (ZETIA) PO SCH (08:23)
[2018-09-20] MEDS: LACTOBACILLUS ACIDOPHILUS CAP (BACID) PO SCH ×2 (08:25→20:53)
[2018-09-20] MEDS: sulfaSALAzine 500 MG TABEC PO SCH (08:25)
[2018-09-20] MEDS: GABAPENTIN 300 MG CAP PO SCH ×3 (08:25→20:53)
[2018-09-20] MEDS: MELOXICAM (MOBIC) 7.5 MG TAB PO SCH (08:25)
[2018-09-20] MEDS: LISINOPRIL 20 MG TAB PO SCH (08:25)
[2018-09-20] MEDS: ALLOPURINOL 100 MG TAB PO SCH (08:25)
[2018-09-20] MEDS: CARVedilol 3.125 MG TAB PO SCH ×2 (08:26→20:53)
[2018-09-20] MEDS: VITAMIN D 1,000 INTERNATIONAL UNITS TABLET PO SCH (08:26)
[2018-09-20] MEDS ORDERED: MAGNESIUM OXIDE 400 MG TAB (MAG-OX) PO ONE (09:00)
[2018-09-20] MEDS: ADVAIR HFA 115/21MCG INHALER INH SCH ×2 (09:02→21:17)
[2018-09-20] MEDS: cefTRIAXone SOD 1 GM in D5W MINI-BAG PLUS 50 ML IV SCH (16:13)
[2018-09-20] MEDS: AZITHROMYCIN INJ 500 MG, VIAL MATE ADAPTER 1 EACH in D5W 250 ML IV SCH (17:11)
[2018-09-21 04:00] VITALS: BP 140/72
[2018-09-21] MEDS: methylPREDNISolone INJ 40 MG/1 ML VIAL (J2920) IV SCH (04:04)
[2018-09-21] MEDS: LEVOTHYROXINE 150MCG TABLET (0.15MG) PO SCH (05:44)
[2018-09-21 06:01] LABS: HEMATOCRIT 36.2 % (36.0-47.0); MEAN CORPUSCULAR HEMOGLOBIN 32.4 pg (27.0-33.0); MEAN CORPUSCULAR HGB CONC 33.1 g/dl (32.0-36.5); MEAN CORPUSCULAR VOLUME 97.8 fl (80.0-96.0); PLATELET COUNT, AUTOMATED 220 10^3/uL (150-450); WHITE BLOOD COUNT 27.5 10^3/uL (4.0-10.0)
[2018-09-21 06:14] LABS: BLOOD UREA NITROGEN 16 MG/DL (7-18); CALCIUM LEVEL 8.8 MG/DL (8.8-10.2); CARBON DIOXIDE LEVEL 22 MEQ/L (21-32); CHLORIDE LEVEL 112 MEQ/L (98-107); CREATININE FOR GFR 0.64 MG/DL (0.55-1.30); GLOMERULAR FILTRATION RATE > 60.0 (>45); GLUCOSE, FASTING 150 MG/DL (70-100); MAGNESIUM LEVEL 2.1 MG/DL (1.8-2.4); POTASSIUM SERUM 3.7 MEQ/L (3.5-5.1); SODIUM LEVEL 143 MEQ/L (136-145)
[2018-09-21] MEDS: ADVAIR HFA 115/21MCG INHALER INH SCH (07:40)
[2018-09-21 08:00] VITALS: BP 159/73
[2018-09-21] MEDS: sulfaSALAzine 500 MG TABEC PO SCH (08:32)
[2018-09-21] MEDS: ALLOPURINOL 100 MG TAB PO SCH (08:32)
[2018-09-21] MEDS: MELOXICAM (MOBIC) 7.5 MG TAB PO SCH (08:32)
[2018-09-21] MEDS: raNITIdine SYRUP 150 MG/10 ML UDC PO SCH (08:32)
[2018-09-21 08:33] VITALS: BP 159/73
[2018-09-21] MEDS: VITAMIN D 1,000 INTERNATIONAL UNITS TABLET PO SCH (08:33)
[2018-09-21] MEDS: LISINOPRIL 20 MG TAB PO SCH (08:33)
[2018-09-21] MEDS: METHOCARBAMOL 500 MG TAB PO PRN (08:33)
[2018-09-21] MEDS: EZETIMIBE 10 MG TAB (ZETIA) PO SCH (08:34)
[2018-09-21] MEDS: GABAPENTIN 300 MG CAP PO SCH (08:34)
[2018-09-21] MEDS: LACTOBACILLUS ACIDOPHILUS CAP (BACID) PO SCH (08:34)
[2018-09-21] MEDS: CYANOCOBALAMIN 500 MCG TAB PO SCH (08:34)
[2018-09-21] MEDS: SERTRALINE HCL 50 MG TAB PO SCH (08:35)
[2018-09-21] MEDS: CLOPIDOGREL 75 MG TAB PO SCH (08:35)
[2018-09-21] MEDS: ASCORBIC ACID 500 MG TAB PO SCH (08:35)
[2018-09-21] MEDS: OMEPRAZOLE 20 MG CAP PO SCH (08:35)
[2018-09-21] MEDS: FERROUS SULFATE 325MG TAB PO SCH (08:35)
[2018-09-21] MEDS: FOLIC ACID 1 MG TAB PO SCH (08:35)
[2018-09-21] MEDS: CARVedilol 3.125 MG TAB PO SCH (08:36)
[2018-09-21] MEDS ORDERED: AZIT500T2 PO (09:16)
[2018-09-21] MEDS ORDERED: PRED10TA2 PO (09:16)
[2018-09-21] MEDS ORDERED: CEFD300CAP PO (09:16)
[2018-09-21] MEDS ORDERED: methylPREDNISolone INJ 40 MG/1 ML VIAL (J2920) IV SCH (17:00)
--- NOTE | 2018-09-21 20:33 | IPN ---
DATE: 09/20/2018 SUBJECTIVE: Patient examined at bedside in the emergency room (ER). States that her breathing is slightly improved today. Was admitted overnight. She continues to require supplemental oxygen. At baseline is not oxygen dependent. Still having aches and chills throughout, given her positive flu, but otherwise is feeling slightly better. No other issues overnight. She continues on steroid and intravenous (IV) antibiotics and supportive care. PHYSICAL EXAMINATION: VITAL SIGNS: Temperature 98, pulse 82, respirations 20, blood pressure (BP) 102/64, mean arterial pressure (MAP) of 77, pulse oximetry 91% on 1 liter nasal cannula. GENERAL: Resting comfortably in bed eating breakfast. No acute distress. Fully conversant. Able to speak in full sentences. HEENT: Normocephalic, atraumatic. Extraocular muscles intact. NECK: Supple without jugular venous distention (JVD). CARDIAC: Regular rate and rhythm without any appreciable murmurs. No edema. LUNGS: Rhonchi throughout with mild wheezing dispersed throughout. Equal chest rise bilaterally. ABDOMEN: Soft. Normoactive bowel sounds. Nontender, nondistended. EXTREMITIES: Radial pulses 2+ bilaterally. Able to move all extremities. LABORATORY DATA: WBC 14, hemoglobin and hematocrit 11.9/35.3, platelets 156. Sodium 141, potassium 4.0, BUN and creatinine 13 and 0.53. ASSESSMENT AND PLAN: 1. Acute hypoxia secondary to chronic obstructive pulmonary disease (COPD) exacerbation in light of acute community-acquired pneumonia as well as positive flu. Patient at baseline is not on any oxygen, however, is requiring 1-3 liters of nasal cannula currently. She is overall improving from admission. Continue on intravenous (IV) steroids and antibiotics. Supportive care for the flu. She has been having chills and aches for the past 4-5 days and has passed the time frame for Tamiflu. She does have a positive sick encounter with a grandchild with positive flu. She has been educated on droplet precautions and is otherwise improving well. Continue to titrate oxygen 88-92%. Overall her white count is improving down to 14 this morning. Continue to follow. Blood and sputum cultures are currently pending. Continue DuoNeb treatments. 2. Hypokalemia. Patient was supplemented, and potassium has normalized today. 3. Depression, stable on sertraline. 4. Gout, stable on allopurinol. 5. Hypertension, controlled on home regimen of lisinopril and carvedilol. 6. Gastroesophageal reflux disease (GERD)/peptic ulcer disease, controlled on Prilosec, Zantac, and Bacid. 7. Hypothyroidism. Continue home Synthroid. 8. Hyperlipidemia. She continues on her Zetia. 10. Aiu-kofmnrt-logutmfcx diabetes mellitus 2. Is diet controlled. Not on any medications. 11. Deep vein thrombosis (DVT) prophylaxis, mechanical given her history of peptic ulcer disease. DISPOSITION: Pending clinical improvement. Continue IV steroids and antibiotics. My faculty preceptor for this patient encounter was physically present during the encounter and was fully available. All aspects of the patient interview, examination, medical decision making process, and medical care plan development were reviewed and approved by the faculty preceptor. The faculty preceptor is aware and concurs with the plan as stated in the body of this note and will attest to such by his/her co-signature. SHANTAL
--- NOTE | 2018-09-22 16:21 | DS.PDOC ---
Discharge Summary General Date of Admission Sep 19, 2018 at 14:51 Date of Discharge 09/21/18 Primary Care Physician: KAMRAN MCCOLLUM Attending Physician: DELIO HDZ DO Discharge Summary PROCEDURES PERFORMED DURING STAY: [None]. ADMITTING DIAGNOSES: 1. dyspnea 2. influenza 3. multifocal pneumonia DISCHARGE DIAGNOSES: 1. Acute hypoxia 2/2 COPD exacerbation in setting of acute community-acquired pneumonia and positive influenza 2. Hypokalemia, supplemented Rheumatoid arthritis. History of gout. Non-O2 dependent COPD. Depression. Hyperlipidemia. Hypertension. NIDDM2, diet-controlled Hypothyroidism. History of peptic ulcer disease. Asthma. Questionable hx of PE-pt states she is only on Plavix, allergic to ASA and does not want other anticoagulation COMPLICATIONS/CHIEF COMPLAINT: Copd With Exacerbation,Pneumonia,Influenza. HISTORY OF PRESENT ILLNESS: 63 yo F presented to ED after she was incidentally found to have multifocal pneumonia on CT through PCP office for a lung nodule follow up. States she has positive sick contact with grandchild +influenza at home, and for the past 4 days, she started experiencing similar symptoms to the child, including chills, body aches, cough with phlegm and worsening shortness of breath. She was found to be influenza positive and requiring supplemental O2. HOSPITAL COURSE: She was admitted and started on IV abx, IV steroids, and DuoNebs for COPD/asthma exacerbation 2/2 influenza and pneumonia. She was past the time window for Tamiflu, and improved with supportive care. She gradually began to improve, titrated off O2 the 2nd day of hospitalization, and able to ambulate hallways without desatting. Her WBC began to improve and she cleared home-safety eval with physical therapy. She demanded to go home, stating she has a sister who has mental disability and relies on the pt to care for her. director agricultural services was involved in care and pt was sent home with services. Given her improvement and no complications during hospital stay, she was discharged home w ith po antibiotics and prednisone taper, with instructions to complete course as prescribed, return to ER for emergency, and f/u with PCP within 1 week. All questions answered. DISCHARGE MEDICATIONS: Please see below. ALLERGIES: Please see below. PHYSICAL EXAMINATION ON DISCHARGE: VITAL SIGNS: Please see below. GENERAL: Resting comfortably in bed. No acute distress. Fully conversant. Able to speak in full sentences. HEENT: Normocephalic, atraumatic. Extraocular muscles intact. NECK: Supple without jugular venous distention (JVD). CARDIAC: Regular rate and rhythm without any appreciable murmurs. No edema. LUNGS: Rhonchi throughout with mild wheezing dispersed throughout. Equal chest rise bilaterally. ABDOMEN: Soft. Normoactive bowel sounds. Nontender, nondistended. EXTREMITIES: Radial pulses 2+ bilaterally. Able to move all extremities. LABORATORY DATA: Please see below. IMAGIN09/19/18 CT chest: 1. Previously identified irregular density along the periphery of the right lower lobe is unchanged and most compatible with small scar. 2. Scattered patchy bilateral ground-glass and alveolar infiltrates along with peribronchial thickening suggests acute multifocal pneumonia and bronchitis. Correlation and follow up recommended. PROGNOSIS: fair ACTIVITY: [As tolerated]. DIET: 2g sodium DISPOSITION: Home Health Service. DISCHARGE INSTRUCTIONS: 1. Complete antibiotics and steroid taper as prescribed 2. Return to ER for emergency 3. F/U with PCP within 1 week DISCHARGE CONDITION: [Stable]. TIME SPENT ON DISCHARGE: Greater than 35minutes. Vital Signs/I&Os Vital Signs Date Time Temp Pulse Resp B/P (MAP) Pulse Ox O2 Delivery O2 Flow Rate FiO2 09/21/18 08:36 76 09/21/18 08:33 159/73 09/21/18 08:00 98.0 18 93 09/20/18 20:00 1.0 09/20/18 00:18 Nasal Cannula I&O- Last 24 Hours up to 6 AM 09/22/18 06:00 Intake Total 240 ml Balance 240 ml Microbiology Microbiology 09/19/18 Blood Culture - Preliminary, Resulted No Growth after 48 hours. All Specime... 09/19/18 Blood Culture - Preliminary, Resulted No Growth after 72 hours. All specime... 09/19/18 Gram Stain - Final, Resulted 09/19/18 Sputum Culture - Preliminary, Resulted Streptococcus Pneumoniae Staphylococcus Aureus Yeast Like Organism Discharge Medications Scheduled Allopurinol (Allopurinol) 100 Mg Tab, 100 MG PO DAILY, (Reported) Ascorbic Acid (Vitamin C) 500 Mg Cap, 500 MG PO DAILY, (Reported) Azithromycin (Azithromycin) 500 Mg Tab, 500 MG PO DAILY Carvedilol (Carvedilol) 3.125 Mg Tab, 3.125 MG PO BID, (Reported) Cefdinir (Cefdinir) 300 Mg Cap, 300 MG PO BID Clopidogrel Bisulfate (Clopidogrel) 75 Mg Tab, 75 MG PO DAILY, (Reported) Cyanocobalamin (Vitamin B12) 1,000 Mcg Tab, 1,000 MCG PO DAILY, (Reported) Ezetimibe (Ezetimibe) 10 Mg Tab, 10 MG PO DAILY, (Reported) Ferrous Sulfate (Ferrous Sulfate) 325 Mg Tab, 325 MG PO DAILY, (Reported) Folic Acid (Folic Acid) 1 Mg Tab, 1 MG PO DAILY, (Reported) Gabapentin (Gabapentin) 300 Mg Cap, 300 MG PO TID, (Reported) Lactobacillus Acidophilus (Bacid) 1 Tab Tab, 1 TAB PO BID, (Reported) Levothyroxine Sodium (Synthroid) 150 Mcg Tab, 150 MCG PO DAILY, (Reported) Lisinopril (Lisinopril) 20 Mg Tab, 20 MG PO DAILY, (Reported) Magnesium Oxide (Magnesium) 400 Mg Tab, 500 MG PO DAILY, (Reported) Meloxicam (Mobic) 15 Mg Tab, 15 MG PO DAILY, (Reported) Prednisone (Prednisone) 10 Mg Tab, 10 MG PO TAPER Take 4 tabs daily x 3 days, then 3 tabs daily x 3 days, then 2 tabs daily x 3 days, then 1 tab daily x 3 days and stop Salmeterol/Fluticasone (Advair Hfa 115-21 Mcg/Act) 1 Aer Aer, 2 PUFF INH BID, ( Reported) Sertraline Hcl (Sertraline HCl) 50 Mg Tab, 50 MG PO DAILY, (Reported) Sulfasalazine (Sulfasalazine) 500 Mg Tab, 500 MG PO DAILY, (Reported) Vitamin D (Vitamin D) 2,000 Unit Cap, 2,000 UNIT PO DAILY, (Reported) Scheduled PRN (Aleve-D Sinus & Headache 120-220 mg) 1 Tab Tab, 1 TAB PO Q12H PRN for PAIN, (Reported) (Aleve Arthritis) 220 Mg Tab, 220 MG PO Q12H PRN for PAIN, (Reported) Albuterol Sulfate (Ventolin Hfa) 108 Mcg/Act Aer, 2 PUFF INH Q4H PRN for SH ORTNESS OF BREATH, (Reported) Albuterol/Ipratropium (Ipratropium Vandervoort/Albut 0.5-2.5 (3) mg/3Ml) 1 Katelyn Katelyn, 1 VIAL NEB Q4H PRN for SHORTNESS OF BREATH, (Reported) Methocarbamol (Robaxin) 500 Mg Tab, 1 TAB PO QID PRN for PAIN, (Reported) Nitroglycerin (Nitrostat) 0.4 Mg Subl, 0.4 MG SL PRN PRN for CHEST PAIN, (Reported) Allergies Coded Allergies: Nicergoline (Verified Allergy, Severe, SEIZURES, 09/19/18) Tomato (Verified Allergy, Severe, KRAFT BARBECUE SAUCE - TURNS PURPLE, 09/21/18) Codeine (Verified Allergy, Unknown, 10/28/16) Caffeine (Verified Adverse Reaction, Severe, convulsions, 09/19/18) Ergotamine (Verified Adverse Reaction, Severe, SEIZURES, 09/19/18) Xanthan Gum (Verified Adverse Reaction, Severe, SEIZURES - XANTHINE, 09/19/18) Aspirin (Verified Adverse Reaction, Mild, VOMITTING, 04/04/17) GME ATTESTATION GME ATTESTATION My faculty preceptor for this patient encounter was physically present during the encounter and was fully available. All aspects of the patient interview, examination, medical decision making process, and medical care plan development were reviewed and approved by the faculty preceptor. The faculty preceptor is aware and concurs with the plan as stated in the body of this note and will attest to such by his/her cosignature. BRINA SCHWAB DO Sep 22, 2018 16:21
== END 2018-09-21 12:24 | disposition home health service (06) | DRG 139 ==
LOC: M ED 10:04 → M ED INP 14:51 → M PCU 09-20 17:59
PROVIDERS: ADMIT Internal Medicine; ATTEND Internal Medicine
DX: J10.00 Influenza due to other identified influenza virus with unspecified type of pneumonia (principal); J44.0 Chronic obstructive pulmonary disease with (acute) lower respiratory infection; J44.1 Chronic obstructive pulmonary disease with (acute) exacerbation; M06.9 Rheumatoid arthritis, unspecified; M10.9 Gout, unspecified; F32.9 Major depressive disorder, single episode, unspecified; E87.6 Hypokalemia; J18.9 Pneumonia, unspecified organism; E78.5 Hyperlipidemia, unspecified; R09.02 Hypoxemia; I10 Essential (primary) hypertension; E11.9 Type 2 diabetes mellitus without complications; E03.9 Hypothyroidism, unspecified; J45.909 Unspecified asthma, uncomplicated; K27.9 Peptic ulcer, site unspecified, unspecified as acute or chronic, without hemorrhage or perforation; Z87.891 Personal history of nicotine dependence; Z79.02 Long term (current) use of antithrombotics/antiplatelets; Z79.1 Long term (current) use of non-steroidal anti-inflammatories (NSAID); Z79.899 Other long term (current) drug therapy

== ENCOUNTER → 2018-09-19 | Outpatient (CLI) | payer OTHER ==
[~2018-09-19] MED LIST changes: +ALEV1TAB PO; +ALEV220T22 PO; +AZIT500T2 PO; +CARV3.12 PO; +CEFD300CAP PO; +CLOP75TA2 PO; -DRIS50002 PO; +DRIS50003 PO; +EZET10TA PO; +FERR1TAB8 PO; +FOLI1TAB11 PO; -FOLI1TAB4 PO; -GABA-282 PO; +GABA-843 PO; +IPRA0.00 NEB; +MELO15TA28 PO; -MELO15TA4 PO; +NAPR-50 PO; -NAPR500T PO; +NITR4TASL SL; +PRED10TA2 PO; -PROP40TA PO; +PROP40TA62 PO; +SULF500T2 PO; +SYNT150T PO; +VENTAER INH; +VITA100072 PO
--- NOTE | 2018-09-19 11:01 | REP ---
Clinical: Follow-up pulmonary nodule Comparison: 02/23/2018, 11/05/2007. Technique: Axial noncontrast images from the thoracic inlet to the upper abdomen with coronal and sagittal re-formations. Findings: The previously identified suspicious density along the anterolateral subpleural right lower lobe is identified, unchanged, and likely represents small area of scarring (images 69-71). Patchy bilateral ground-glass and alveolar infiltrates are now identified primarily involving the left lower lobe although scattered bilaterally throughout the lung gregorio and suggest an acute multifocal pneumonia / pneumonitis along with mild bronchitis. No further significant nodule or mass lesion. No pleural effusion. No pneumothorax. Mediastinal and hilar adenopathy is suggested and likely reactive. Thoracic aorta without aneurysm. No cardiomegaly or pericardial effusion. Surrounding musculoskeletal structures intact without focal osseous abnormality. Impression: 1. Previously identified irregular density along the periphery of the right lower lobe is unchanged and most compatible with small scar. 2. Scattered patchy bilateral ground-glass and alveolar infiltrates along with peribronchial thickening suggests acute multifocal pneumonia and bronchitis. Correlation and follow up recommended. Electronically Signed by Gideon Boo MD 09/19/2018 10:53 A
== END ==
LOC: M RAD 09:25
PROVIDERS: ATTEND Nurse Practitioner Family
DX: F17.210 Nicotine dependence, cigarettes, uncomplicated (principal); R91.1 Solitary pulmonary nodule; R91.8 Other nonspecific abnormal finding of lung field

== ENCOUNTER → 2019-03-07 | Outpatient (CLI) | payer OTHER ==
[~2019-03-07] MED LIST changes: -/ADVA50050 IN; +ADVA1AER2 IN; +ALEV1TAB PO; +ALEV220T22 PO; +AZIT500T2 PO; +CEFD300CAP PO; +CYAN500T9 PO; -EZET10TA PO; +EZET10TA21 PO; +FERR1TAB8 PO; +IPRA0.00 NEB; -MAGN1TAB25 PO; +MAGN1TAB26 PO; -NAPR-50 PO; +NAPR-837 PO; +PRED10TA2 PO; +SERT-141 PO; -SERT50TA PO; +SULF500T2 PO; +SYNT150T PO; +VENTAER INH; -VICO5TAB16 PO; +VICO5TAB17 PO; -VITA-193 PO; +VITA100018 PO
[2019-03-07 15:20] LABS: HEMATOCRIT 37.5 % (36.0-47.0); HEMOGLOBIN 12.4 g/dl (12.0-15.5); MEAN CORPUSCULAR HEMOGLOBIN 35.1 pg (27.0-33.0); MEAN CORPUSCULAR HGB CONC 33.1 g/dl (32.0-36.5); MEAN CORPUSCULAR VOLUME 106.2 fl (80.0-96.0); PLATELET COUNT, AUTOMATED 190 10^3/uL (150-450); RED BLOOD COUNT 3.53 10^6/uL (4.00-5.40); WHITE BLOOD COUNT 9.9 10^3/uL (4.0-10.0)
[2019-03-07 15:21] LABS: BLOOD UREA NITROGEN 8 MG/DL (7-18); CALCIUM LEVEL 8.5 MG/DL (8.8-10.2); CARBON DIOXIDE LEVEL 24 MEQ/L (21-32); CHLORIDE LEVEL 114 MEQ/L (98-107); CREATININE FOR GFR 0.73 MG/DL (0.55-1.30); GLOMERULAR FILTRATION RATE > 60.0 (>45); GLUCOSE, FASTING 99 MG/DL (70-100); POTASSIUM SERUM 3.6 MEQ/L (3.5-5.1); SODIUM LEVEL 146 MEQ/L (136-145)
== END ==
LOC: M LAB 14:11
PROVIDERS: ATTEND Physician Assistant
DX: Z01.810 Encounter for preprocedural cardiovascular examination (principal)

== ENCOUNTER → 2019-03-07 | Outpatient (CLI) | payer OTHER ==
[2019-03-07 09:19] LABS: BASO % 0.4 % (0.0-1.0); EOS # 0.4 10^3/uL (0.0-0.50); HEMATOCRIT 39.6 % (36.0-47.0); LYMPH % 21.6 % (24.0-44.0); MEAN CORPUSCULAR HEMOGLOBIN 35.3 pg (27.0-33.0); MEAN CORPUSCULAR HGB CONC 32.8 g/dl (32.0-36.5); MEAN CORPUSCULAR VOLUME 107.6 fl (80.0-96.0); MONO # 1.1 10^3/uL (0.0-0.8); MONO % 11.8 % (0.0-5.0); NEUTROPHILS # 5.7 10^3/uL (1.8-7.7); NEUTROPHILS % 61.9 % (36.0-66.0); PLATELET COUNT, AUTOMATED 181 10^3/uL (150-450); RED BLOOD COUNT 3.68 10^6/uL (4.00-5.40); WHITE BLOOD COUNT 9.3 10^3/uL (4.0-10.0)
[2019-03-07 09:48] LABS: BLOOD UREA NITROGEN 9 MG/DL (7-18); CALCIUM LEVEL 8.8 MG/DL (8.8-10.2); CARBON DIOXIDE LEVEL 27 MEQ/L (21-32); CHLORIDE LEVEL 113 MEQ/L (98-107); CREATININE FOR GFR 0.74 MG/DL (0.55-1.30); GLOMERULAR FILTRATION RATE > 60.0 (>45); GLUCOSE, FASTING 80 MG/DL (70-100); POTASSIUM SERUM 4.3 MEQ/L (3.5-5.1); SODIUM LEVEL 147 MEQ/L (136-145)
--- NOTE | 2019-03-07 12:41 | REP ---
REASON FOR EXAM: Preoperative evaluation. COMPARISON EXAM: 10/08/2015. FINDINGS: The superior mediastinal structures are midline. The cardiac silhouette is unremarkable in size, shape, and position. The diaphragmatic surfaces of the lungs are regular, and the costophrenic angles are clear. The pulmonary gregorio are clear. The imaged osseous structures are intact. IMPRESSION: There is no acute cardiopulmonary disease. No significant change from the prior exam. Electronically Signed by Bolivar Peters DO 03/08/2019 03:04 P
== END ==
LOC: M LAB 08:21
PROVIDERS: ATTEND Family Medicine
DX: Z01.818 Encounter for other preprocedural examination (principal)

== ENCOUNTER → 2019-03-22 | Outpatient (CLI) | payer OTHER ==
[~2019-03-22] MED LIST changes: -AZIT500T2 PO; +AZIT500T5 PO; -OMEP40CA2 PO; +OMEP40CA97 PO; +RANI150T14 PO
[2019-03-22 12:16] LABS: BLOOD UREA NITROGEN 8 MG/DL (7-18); CALCIUM LEVEL 8.8 MG/DL (8.8-10.2); CARBON DIOXIDE LEVEL 26 MEQ/L (21-32); CHLORIDE LEVEL 112 MEQ/L (98-107); CREATININE FOR GFR 0.71 MG/DL (0.55-1.30); FREE T4 1.11 NG/DL (0.76-1.46); GLOMERULAR FILTRATION RATE > 60.0 (>45); GLUCOSE, FASTING 98 MG/DL (70-100); POTASSIUM SERUM 4.1 MEQ/L (3.5-5.1); SODIUM LEVEL 142 MEQ/L (136-145)
--- NOTE | 2019-03-22 21:46 | REP ---
Clinical: Dyspnea on exertion. Technique: PA and lateral. Comparison: 03/07/2019. Findings: Mediastinum and cardiac silhouette are normal. Lung gregorio demonstrate chronic stable changes. No focal consolidation, effusion, or pneumothorax. Skeletal structures demonstrate chronic changes. Impression: No acute cardiopulmonary process appreciated. Electronically Signed by Gideon Boo MD 03/22/2019 09:38 P
== END ==
LOC: M LAB 10:29
PROVIDERS: ATTEND Family Medicine
DX: E87.0 Hyperosmolality and hypernatremia (principal); E03.9 Hypothyroidism, unspecified; R06.09 Other forms of dyspnea

== ENCOUNTER 2019-06-25 08:35 | Emergency (ER) | payer OTHER ==
[~2019-06-25] VITALS: Ht 149.9 cm; Wt 67.2 kg
[~2019-06-25 08:35] MED LIST changes: -RANI150T14 PO
[2019-06-25] MEDS ORDERED: RANI150T14 PO (09:06)
[2019-06-25 09:50] LABS: BLOOD UREA NITROGEN 13 MG/DL (7-18); CALCIUM LEVEL 9.1 MG/DL (8.8-10.2); CARBON DIOXIDE LEVEL 24 MEQ/L (21-32); CHLORIDE LEVEL 115 MEQ/L (98-107); CREATININE FOR GFR 0.74 MG/DL (0.55-1.30); GLOMERULAR FILTRATION RATE > 60.0 (>45); GLUCOSE, FASTING 89 MG/DL (70-100); POTASSIUM SERUM 3.8 MEQ/L (3.5-5.1); SODIUM LEVEL 144 MEQ/L (136-145)
[2019-06-25] MEDS ORDERED: ISOVUE-370 76% 100ML VIAL (Q9967) As Ordered ONE (10:05)
--- NOTE | 2019-06-25 10:42 | REP ---
Clinical: Trauma. Technique: Axial contrast enhanced images from the lung bases to the pubic symphysis using 100 ml Isovue 370 intravenous contrast material with coronal and sagittal re-formations as well as re-formations of the pelvis using artifact reduction technique. Findings: There is no evidence for solid organ injury. Liver, spleen, pancreas, bilateral adrenal glands and kidneys are relatively normal. Evidence for prior cholecystectomy. The enteric system is without obstruction or acute inflammatory process. Pelvis demonstrates normal bladder and evidence for prior hysterectomy. No ascites. No free air. No adenopathy. Atherosclerotic changes of the aorta and vasculature noted without aneurysm or obvious vascular injury. Musculoskeletal structures demonstrate age-related osteopenia and degenerative changes along with evidence for prior lumbosacral laminectomy and posterior fixation. Lung bases are clear. Visualized heart and pericardium normal. Impression: 1. No acute abdominopelvic pathology or trauma/injury. 2. Evidence of prior lumbosacral laminectomy, cholecystectomy and hysterectomy. Electronically Signed by Gideon Boo MD 06/25/2019 10:33 A
--- NOTE | 2019-06-25 10:45 | REP ---
Clinical: Trauma. Technique: Axial contrast enhanced images from the thoracic inlet to the upper abdomen with coronal and sagittal re-formations using 100 ml Isovue 370 intravenous contrast material. Comparison: 09/19/2018. Findings: Bilateral lung gregorio are clear and without consolidation/contusion, effusion, or pneumothorax. Tracheobronchial tree is patent. The mediastinum demonstrates relatively normal thoracic aorta, pulmonary vasculature, and heart/pericardium. No mediastinal acute pathology or trauma/injury noted. No significant adenopathy. Musculoskeletal structures demonstrate prior anterior cervical fixation along with age-related osteopenia and degenerative changes. Impression: 1. No acute mediastinal or pleuroparenchymal process and no evidence for trauma/injury. 2. Skeletal structures demonstrate osteopenia and degenerative changes without evidence for trauma/injury. Electronically Signed by Gideon Boo MD 06/25/2019 10:36 A
--- NOTE | 2019-06-25 10:49 | REP ---
CT cervical spine: 06/25/2019. Indication: Cervical spine trauma. Comparison: 12/22/2018. Technique: Unenhanced axial CT images of the cervical spine were performed with coronal and sagittal reconstructions provided. Findings: The the patient is status post C5 - C7 ACDF with the hardware appearing intact. There is no acute fracture, subluxation or dislocation. No hemorrhage or additional acute post traumatic sequelae within the spinal canal are detected. Posterior spurring is present most pronounced at C5/C6, more pronounced on the left. The neural foramen appear patent throughout. Impression: No acute post traumatic osseous injuries of the cervical spine. Electronically Signed by Vin Bay DO 06/25/2019 10:40 A
[2019-06-25 11:11] VITALS: BP 148/78
== END 2019-06-25 11:23 | disposition home or self-care (01) ==
LOC: M ED 08:35
DX: S13.4XXA Sprain of ligaments of cervical spine, initial encounter (principal); S30.1XXA Contusion of abdominal wall, initial encounter; S20.219A Contusion of unspecified front wall of thorax, initial encounter; V43.62XA Car passenger injured in collision with other type car in traffic accident, initial encounter; Y92.9 Unspecified place or not applicable; Y93.9 Activity, unspecified; Y99.9 Unspecified external cause status; I10 Essential (primary) hypertension; J44.9 Chronic obstructive pulmonary disease, unspecified; G43.909 Migraine, unspecified, not intractable, without status migrainosus; M06.9 Rheumatoid arthritis, unspecified; E07.9 Disorder of thyroid, unspecified; Z86.711 Personal history of pulmonary embolism; F17.200 Nicotine dependence, unspecified, uncomplicated; Z79.899 Other long term (current) drug therapy; Z91.018 Allergy to other foods; Z88.5 Allergy status to narcotic agent; Z88.8 Allergy status to other drugs, medicaments and biological substances
CPT/HCPCS: 71260; 72125; 74177; 80048; 99284; Q9967

== ENCOUNTER → 2019-09-18 | Outpatient (REF) | payer OTHER ==
[~2019-09-18] MED LIST changes: +RANI150T14 PO
[2019-09-18 10:07] LABS: HEMOGLOBIN 13.2 g/dl (12.0-15.5); MEAN CORPUSCULAR HGB CONC 33.8 g/dl (32.0-36.5); MEAN CORPUSCULAR VOLUME 103.4 fl (80.0-96.0); PLATELET COUNT, AUTOMATED 189 10^3/uL (150-450); RED BLOOD COUNT 3.77 10^6/uL (4.00-5.40); WHITE BLOOD COUNT 10.3 10^3/uL (4.0-10.0)
[2019-09-18 10:51] LABS: ALBUMIN 3.7 GM/DL (3.2-5.2); ALT/SGPT 7 U/L (12-78); BILIRUBIN,TOTAL 0.5 MG/DL (0.2-1.0); BLOOD UREA NITROGEN 8 MG/DL (7-18); CALCIUM LEVEL 9.4 MG/DL (8.8-10.2); CARBON DIOXIDE LEVEL 26 MEQ/L (21-32); CHLORIDE LEVEL 112 MEQ/L (98-107); CREATININE FOR GFR 0.72 MG/DL (0.55-1.30); FOLATE > 24.0 NG/ML; FREE T4 1.34 NG/DL (0.76-1.46); GLOMERULAR FILTRATION RATE > 60.0 (>45); GLUCOSE, FASTING 90 MG/DL (70-100); POTASSIUM SERUM 3.8 MEQ/L (3.5-5.1); SODIUM LEVEL 144 MEQ/L (136-145); TOTAL PROTEIN 6.2 GM/DL (6.4-8.2); VITAMIN B12 LEVEL 984 PG/ML
[2019-09-18 11:00] LABS: HEMOGLOBIN A1c 4.6 %
== END ==
LOC: M SFHCPLAZ 08:08
PROVIDERS: ATTEND Family Medicine
DX: I10 Essential (primary) hypertension (principal); E03.9 Hypothyroidism, unspecified; E53.8 Deficiency of other specified B group vitamins; D51.0 Vitamin B12 deficiency anemia due to intrinsic factor deficiency; E13.9 Other specified diabetes mellitus without complications

== ENCOUNTER 2019-09-27 08:40 | Outpatient (RCR) | payer OTHER | END 2019-10-23 | LOC: M PT 08:40 | PROVIDERS: ATTEND Orthopaedic Surgery Sports Medicine | DX: Z51.89 Encounter for other specified aftercare (principal); M19.012 Primary osteoarthritis, left shoulder ==

== ENCOUNTER → 2019-11-27 | Outpatient (CLI) | payer OTHER ==
[~2019-11-27] MED LIST changes: +AMIN500T4 PO; -CYAN500T9 PO; +D3 H2000 PO; +D31000TA2 PO; +ESCI10TA16 PO; +FAMO20TA PO; +FERR325T16 PO; +GABA-282 PO; -GABA-843 PO; +HYDR-3490 PO; -HYDR25TAB PO; +LEVO125T4 PO; -LISI-538 PO; -LISI-542 PO; +LISI-898 PO; +LISI20TA33 PO; +MED REC COMMENT; +METH-1164 PO; -METH1TAB40 PO; +NIX1LIQ3 TOP; +VITA500T37 PO
[2019-11-27 15:50] LABS: BASO # 0.1 10^3/uL (0.0-0.2); BASO % 0.5 % (0.0-1.0); EOS # 0.7 10^3/uL (0.0-0.5); EOS % 7.5 % (0.0-3.0); HEMATOCRIT 39.4 % (36.0-47.0); HEMOGLOBIN 13.1 g/dl (12.0-15.5); LYMPH # 2.4 10^3/uL (1.5-5.0); LYMPH % 24.5 % (24.0-44.0); MEAN CORPUSCULAR HGB CONC 33.2 g/dl (32.0-36.5); MEAN CORPUSCULAR VOLUME 105.3 fl (80.0-96.0); MONO # 0.9 10^3/uL (0.0-0.8); MONO % 9.2 % (0.0-5.0); NEUTROPHILS # 5.7 10^3/uL (1.5-8.5); NEUTROPHILS % 58.1 % (36.0-66.0); PLATELET COUNT, AUTOMATED 213 10^3/uL (150-450); RED BLOOD COUNT 3.74 10^6/uL (4.00-5.40); WHITE BLOOD COUNT 9.8 10^3/uL (4.0-10.0)
[2019-11-27 16:03] LABS: INR 1.07; PROTHROMBIN TIME 13.6 SECONDS (11.8-14.0)
[2019-11-27 16:04] LABS: PARTIAL THROMBOPLASTIN TIME 30.6 SECONDS (25.0-38.4)
[2019-11-27 16:11] LABS: ALBUMIN 3.9 GM/DL (3.2-5.2); ALT/SGPT 10 U/L (12-78); BILIRUBIN,TOTAL 0.8 MG/DL (0.2-1.0); BLOOD UREA NITROGEN 10 MG/DL (7-18); CALCIUM LEVEL 9.4 MG/DL (8.8-10.2); CARBON DIOXIDE LEVEL 27 MEQ/L (21-32); CHLORIDE LEVEL 113 MEQ/L (98-107); CREATININE FOR GFR 0.68 MG/DL (0.55-1.30); GLOMERULAR FILTRATION RATE > 60.0 (>45); GLUCOSE, FASTING 92 MG/DL (70-100); POTASSIUM SERUM 3.7 MEQ/L (3.5-5.1); SODIUM LEVEL 147 MEQ/L (136-145); TOTAL PROTEIN 6.5 GM/DL (6.4-8.2)
[2019-12-04 14:02] LABS: F8 ACTIVITY FOR F8 PANEL SEE SEPARATE REPORT; F8 ANTIGEN FOR F8 PANEL SEE SEPARATE REPORT
[2019-12-04 14:03] LABS: F8 ACTIVITY vWB FOR F8 PANEL SEE SEPARATE REPORT
== END ==
LOC: M LAB 15:08
PROVIDERS: ATTEND Internal Medicine Medical Oncology
DX: R58 Hemorrhage, not elsewhere classified (principal)

== ENCOUNTER → 2019-12-06 | Outpatient (CLI) | payer OTHER ==
[~2019-12-06] MED LIST changes: -AMIN500T4 PO; +CYAN500T9 PO; -D3 H2000 PO; -D31000TA2 PO; -ESCI10TA16 PO; -FERR325T16 PO; -GABA-282 PO; +GABA-843 PO; -HYDR-3490 PO; +HYDR25TAB PO; -LEVO125T4 PO; +LISI-538 PO; +LISI-542 PO; -LISI-898 PO; -LISI20TA33 PO; -MED REC COMMENT; -METH-1164 PO; +METH1TAB40 PO; -NIX1LIQ3 TOP; -VITA500T37 PO
[2019-12-06 11:54] LABS: COLLAGEN EPINEPHRINE 212 SECONDS (74-162)
[2019-12-06 12:02] LABS: COLLAGEN ADP 98 SECONDS (56-103)
== END ==
LOC: M LAB 11:16
PROVIDERS: ATTEND Internal Medicine Medical Oncology
DX: R79.1 Abnormal coagulation profile (principal)

== ENCOUNTER → 2019-12-24 | Outpatient (REF) | payer OTHER ==
[2019-12-24 11:03] LABS: CHOLESTEROL RISK RATIO 5.961 (<5); FREE T4 1.42 NG/DL (0.76-1.46); THYROID STIMULATING HORMONE 3.82 uIU/ML (0.358-3.740); TOTAL 25(OH) VITAMIN D 38.1 NG/ML (30.0-100.0)
--- NOTE | 2019-12-27 18:37 | MEDONCTEEN ---
Date/Time of Encounter Date of Encounter: Dec 27, 2019 Time of Encounter: 17:00 Telephone Encounter Hematology Case discussed in detail with Dr. 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 Patient received transfusion before to help with bleeding Bleeding seems to respond to DDAVP Laboratory data reviewed Patient has normal von Willebrand factor assay Platelet function assay can be performed by [facility] PFA-100 locally to appease pathology Department This test will be normal in patients with delta granule storage pool deficiency I have ordered electromicroscopy before and has billed insurance which was always covered The pathology department cannot say "we can order this test because we may not be paid" We now have two hematologists who have looked at this case and have determined that electromicroscopy is required. This test needs to be performed, period Patient requires surgery cannot have surgery until we have a diagnosis of her bleeding diathesis The suggestion that the patient go to [facility] for platelet aggregation study is not appropriate in my opinion The clinical history super seeds this test and clinically the patient carries a diagnosis of delta granule storage pool deficiency which needs to be confirmed with appropriate testing Patient will get another opinion from Dr. Cruz on the and I am sure he will concur regarding above. Then the patient will have had three anode crew supervisor opinions. KIKO PERSAUD MD Dec 27, 2019 18:37
== END ==
LOC: M SFHCPLAZ 08:35
PROVIDERS: ATTEND Physician Assistant
DX: E03.9 Hypothyroidism, unspecified (principal); E78.2 Mixed hyperlipidemia; E55.9 Vitamin D deficiency, unspecified

== ENCOUNTER → 2020-01-08 | Outpatient (REF) | payer OTHER ==
[~2020-01-08] MED LIST changes: +AMIN500T4 PO; -CYAN500T9 PO; +D3 H2000 PO; +D31000TA2 PO; +ESCI10TA16 PO; +FERR325T16 PO; +GABA-282 PO; -GABA-843 PO; +HYDR-3490 PO; -HYDR25TAB PO; +LEVO125T4 PO; -LISI-538 PO; -LISI-542 PO; +LISI-898 PO; +LISI20TA33 PO; +MED REC COMMENT; +METH-1164 PO; -METH1TAB40 PO; +NIX1LIQ3 TOP; +VITA500T37 PO
[2020-01-22 16:08] LABS: CALPROTECTIN STOOL 172 ug/g (0-120); FATS NEUTRAL Normal (.); FATS TOTAL Normal (.); PANCREATIC ELASTASE STOOL 432 (>200)
== END ==
LOC: M LAB REF 10:22
PROVIDERS: ATTEND Physician Assistant Medical
DX: R19.7 Diarrhea, unspecified (principal)

== ENCOUNTER → 2020-03-04 | Outpatient (REF) | payer OTHER ==
[~2020-03-04] MED LIST changes: -AMIN500T4 PO; +CYAN500T10 PO; -D3 H2000 PO; -D31000TA2 PO; -ESCI10TA16 PO; -FERR325T16 PO; -GABA-282 PO; +GABA-843 PO; -HYDR-3490 PO; +HYDR25TAB PO; -LEVO125T4 PO; +LISI-538 PO; +LISI-542 PO; -LISI-898 PO; -LISI20TA33 PO; -MED REC COMMENT; -METH-1164 PO; +METH1TAB40 PO; -NIX1LIQ3 TOP; -VITA500T37 PO
[2020-04-19 06:52] LABS: BLOOD UREA NITROGEN 9 MG/DL (7-18); CALCIUM LEVEL 8.8 MG/DL (8.8-10.2); CARBON DIOXIDE LEVEL 25 MEQ/L (21-32); CHLORIDE LEVEL 112 MEQ/L (98-107); CREATININE FOR GFR 0.68 MG/DL (0.55-1.30); FREE T4 0.57 NG/DL (0.76-1.46); GLOMERULAR FILTRATION RATE > 60.0 (>45); GLUCOSE, FASTING 81 MG/DL (70-100); POTASSIUM SERUM 3.9 MEQ/L (3.5-5.1); SODIUM LEVEL 142 MEQ/L (136-145)
== END ==
LOC: M SFHCPLAZ 08:08
PROVIDERS: ATTEND Family Medicine
DX: I10 Essential (primary) hypertension (principal); E03.9 Hypothyroidism, unspecified

== ENCOUNTER → 2020-03-12 | Outpatient (CLI) | payer OTHER ==
[~2020-03-12] MED LIST changes: +GLUCAGON INJ 1MG VIAL As Ordered ONE; +ISOVUE-370 76% 100ML VIAL As Ordered ONE
--- NOTE | 2020-04-16 09:47 | REP ---
CT ENTEROGRAPHY WITH IV AND ORAL CONTRAST HISTORY: Abnormal weight loss. Variable abdominal pain and diarrhea. COMPARISON: CT study 06/25/2019. CT CONTRAST DOSE: 100 mL of intravenous Isovue-370 is administered. Oral luminal labeling with VoLumen was accomplished per protocol. CT FINDINGS: Preliminary digital corrective therapy aide teacher radiograph demonstrates a lumbar laminectomy and multilevel fusion hardware. Bowel gas pattern is unremarkable. No abnormality is noted in the lung bases. The liver is normal in size and homogeneous in texture. No mass lesion is seen. Spleen is unremarkable. Normal adrenal glands are seen. The kidneys enhance symmetrically. They appear morphologically intact. Vascular calcification noted fairly extensively. Normal caliber aorta. No abdominal wall defect is seen. There is some spray artifact from the lumbar spine hardware. There is no evidence of abnormal bowel wall enhancement, mural thickening, or gastrointestinal mass. No retroperitoneal or mesenteric adenopathy is appreciated. Urinary bladder is intact. Patient is status post hysterectomy and cholecystectomy. By history, the appendix is surgically absent as well. There is no evidence of ascites. Maximum intensity projection images show no additional abnormality in the gastrointestinal tract. IMPRESSION: No acute abdominal or pelvic abnormality. Post-hysterectomy, appendectomy, and cholecystectomy. Otherwise negative CT enterography. MTDD
== END ==
LOC: M RAD 08:37
PROVIDERS: ATTEND Physician Assistant Medical
DX: R63.4 Abnormal weight loss (principal); R10.9 Unspecified abdominal pain; R19.7 Diarrhea, unspecified
CPT/HCPCS: 74177; J1610; Q9967

== ENCOUNTER → 2020-03-24 | Outpatient (CLI) | payer OTHER ==
[~2020-03-24] MED LIST changes: -GLUCAGON INJ 1MG VIAL As Ordered ONE; -ISOVUE-370 76% 100ML VIAL As Ordered ONE
== END ==
LOC: M PLALAB 10:44
PROVIDERS: ATTEND Family Medicine
DX: E03.9 Hypothyroidism, unspecified (principal)

== ENCOUNTER → 2020-04-02 | Outpatient (CLI) | payer OTHER ==
[2020-04-02 14:54] LABS: BASO # 0.1 10^3/uL (0.0-0.2); BASO % 0.4 % (0.0-1.0); EOS # 0.6 10^3/uL (0.0-0.5); EOS % 5.1 % (0.0-3.0); HEMATOCRIT 34.7 % (36.0-47.0); HEMOGLOBIN 11.3 g/dl (12.0-15.5); LYMPH # 1.9 10^3/uL (1.5-5.0); LYMPH % 16.3 % (24.0-44.0); MEAN CORPUSCULAR HEMOGLOBIN 35.1 pg (27.0-33.0); MEAN CORPUSCULAR HGB CONC 32.6 g/dl (32.0-36.5); MEAN CORPUSCULAR VOLUME 107.8 fl (80.0-96.0); MONO # 1.5 10^3/uL (0.0-0.8); MONO % 13.4 % (0.0-5.0); NEUTROPHILS # 7.4 10^3/uL (1.5-8.5); NEUTROPHILS % 64.5 % (36.0-66.0); PLATELET COUNT, AUTOMATED 266 10^3/uL (150-450); RED BLOOD COUNT 3.22 10^6/uL (4.00-5.40); WHITE BLOOD COUNT 11.5 10^3/uL (4.0-10.0)
== END ==
LOC: M LAB 13:20
PROVIDERS: ATTEND Internal Medicine Hematology & Oncology
DX: D69.1 Qualitative platelet defects (principal)

== ENCOUNTER 2020-04-21 08:31 | Outpatient (RCR) | payer OTHER | END 2020-04-23 | LOC: M PT 08:31 | PROVIDERS: ATTEND Orthopaedic Surgery Sports Medicine | DX: M19.012 Primary osteoarthritis, left shoulder (principal); Z96.612 Presence of left artificial shoulder joint ==

== ENCOUNTER → 2020-04-30 | Outpatient (CLI) | payer OTHER ==
[2020-04-30 11:07] LABS: BLOOD UREA NITROGEN 6 MG/DL (7-18); CREATININE FOR GFR 0.63 MG/DL (0.55-1.30); GLOMERULAR FILTRATION RATE > 60.0 (>45)
== END ==
LOC: M LAB 09:20
PROVIDERS: ATTEND Physician Assistant Medical
DX: R19.7 Diarrhea, unspecified (principal); R63.4 Abnormal weight loss

== ENCOUNTER 2020-05-20 08:17 | Outpatient (RCR) | payer OTHER | END 2020-05-24 | LOC: M PT 08:17 | PROVIDERS: ATTEND Orthopaedic Surgery Sports Medicine | DX: Z96.612 Presence of left artificial shoulder joint (principal); Z47.1 Aftercare following joint replacement surgery ==

== ENCOUNTER 2020-06-18 08:00 | Outpatient (RCR) | payer OTHER ==
[~2020-06-18 08:00] MED LIST changes: +AMIN500T4 PO
[2020-06-23] MEDS ORDERED: D3 H2000 PO (13:12)
== END 2020-06-23 ==
LOC: M PT 08:00
PROVIDERS: ATTEND Orthopaedic Surgery Sports Medicine
DX: Z47.1 Aftercare following joint replacement surgery (principal); M25.512 Pain in left shoulder; Z96.612 Presence of left artificial shoulder joint

== ENCOUNTER → 2020-06-21 | Outpatient (CLI) | payer OTHER ==
[~2020-06-21] MED LIST changes: +D3 H2000 PO; +D31000TA2 PO; +ESCI10TA2 PO; +FERR325T16 PO; +LEVO125T4 PO; +MED REC COMMENT
== END ==
LOC: M LABSMTC 11:10
PROVIDERS: ATTEND Internal Medicine Gastroenterology
DX: Z01.812 Encounter for preprocedural laboratory examination (principal); Z20.828 Contact with and (suspected) exposure to other viral communicable diseases

== ENCOUNTER 2020-06-27 08:31 | Inpatient (IN) | payer OTHER ==
[2020-06-27] VITALS (21 sets, daily range): BP systolic 82–108; BP diastolic 44–66
[~2020-06-27] VITALS: Ht 149.9 cm; Wt 70.2 kg
[~2020-06-27 08:31] MED LIST changes: -D31000TA2 PO; -ESCI10TA2 PO; -FERR325T16 PO; -LEVO125T4 PO; -MED REC COMMENT
[2020-06-27] MEDS ORDERED: HEPARIN SOD (PORCINE) 5000UNITS/ML 1ML VIAL/SYRINGE SC SCH (09:00)
[2020-06-27] MEDS ORDERED: NS 1,000 ML IV ONE ×2 (09:00→18:30)
[2020-06-27] MEDS ORDERED: NS 1,000 ML IV SCH (09:00)
[2020-06-27] MEDS ORDERED: MORPHINE 4 MG/ML 1ML VIAL/SYRINGE (J2270) IV PRN (09:15)
[2020-06-27] MEDS ORDERED: ONDANSETRON 4MG/2ML VIAL IV ONE (09:15)
[2020-06-27 09:36] LABS: BASO # 0.1 10^3/uL (0.0-0.2); BASO % 0.5 % (0.0-1.0); EOS # 0.6 10^3/uL (0.0-0.5); EOS % 4.4 % (0.0-3.0); HEMATOCRIT 39.6 % (36.0-47.0); HEMOGLOBIN 13.6 g/dl (12.0-15.5); LYMPH # 2.5 10^3/uL (1.5-5.0); LYMPH % 17.1 % (24.0-44.0); MEAN CORPUSCULAR HEMOGLOBIN 33.3 pg (27.0-33.0); MEAN CORPUSCULAR HGB CONC 34.3 g/dl (32.0-36.5); MEAN CORPUSCULAR VOLUME 96.8 fl (80.0-96.0); MONO # 1.3 10^3/uL (0.0-0.8); MONO % 9.3 % (0.0-5.0); NEUTROPHILS # 9.8 10^3/uL (1.5-8.5); NEUTROPHILS % 68.3 % (36.0-66.0); PLATELET COUNT, AUTOMATED 208 10^3/uL (150-450); RED BLOOD COUNT 4.09 10^6/uL (4.00-5.40); WHITE BLOOD COUNT 14.4 10^3/uL (4.0-10.0)
--- NOTE | 2020-06-27 10:02 | REP ---
INDICATION: CP. COMPARISON: Comparison chest CT study is from June 25, 2019.. TECHNIQUE: Helical scanning is acquired 3 mm axial images re-formatted. Coronal and sagittal MPR images are generated. FINDINGS: Preliminary digital finance professor radiograph demonstrates monitoring electrodes, cervical and lumbar spine fusion hardware, and prosthetic humeral heads in bilateral shoulders. There is no evidence of pleural or pericardial effusion. No hilar or mediastinal mass or adenopathy is observed. There is left coronary artery vascular calcification. The ascending aorta measures 3.4 cm in greatest anteroposterior dimension. Mild vascular calcification in the aortic arch. There is some spray artifact from the shoulder art were. The patient was unable to raise her arms out of the scanned field of view. Lung window settings demonstrate no evidence of pulmonary mass, infiltrate or atelectasis. No significant pulmonary nodule is appreciated. No bony destructive lesion. No extra thoracic mass or adenopathy is seen. Normal adrenal glands are observed. IMPRESSION: No active cardiopulmonary disease seen. <Electronically signed by Jayy Galicia > 06/27/20 [id number]
[2020-06-27 10:04] LABS: ALBUMIN 3.5 GM/DL (3.2-5.2); ALT/SGPT < 6 U/L (12-78); BILIRUBIN,DIRECT 0.1 MG/DL (0.0-0.2); BILIRUBIN,TOTAL 2.5 MG/DL (0.2-1.0); BLOOD UREA NITROGEN 60 MG/DL (7-18); CALCIUM LEVEL 8.5 MG/DL (8.8-10.2); CARBON DIOXIDE LEVEL 13 MEQ/L (21-32); CHLORIDE LEVEL 104 MEQ/L (98-107); CREATININE FOR GFR 5.68 MG/DL (0.55-1.30); GLOMERULAR FILTRATION RATE 8.1 (>45); GLUCOSE, FASTING 115 MG/DL (70-100); LIPASE 291 U/L (73-393); POTASSIUM SERUM 2.7 MEQ/L (3.5-5.1); SODIUM LEVEL 131 MEQ/L (136-145); TOTAL PROTEIN 6.8 GM/DL (6.4-8.2)
--- NOTE | 2020-06-27 10:04 | REP ---
INDICATION: abd pain COMPARISON: Comparison CT study is from March 12, 2020.. TECHNIQUE: Helical scanning is acquired in 4 mm axial images were reformatted. Coronal and sagittal MPR images were generated and reviewed. FINDINGS: Preliminary digital machine set up operator paper goods radiograph demonstrates lumbar spine fusion hardware and a normal bowel gas pattern. The liver is normal in size homogeneous in texture. The gallbladder is surgically absent as is the appendix. Patient is also status post hysterectomy. Normal adrenal glands are seen. No abnormality is noted in the pancreas. No retroperitoneal mass or adenopathy is seen. Some vascular calcification is seen in a normal caliber aorta. The kidneys appear morphologically intact. No hydronephrosis or calculus is seen. There is spray artifact in the mid abdomen scanned images from lumbar spine fusion hardware. No adnexal cyst or mass is observed. No free fluid is seen. Small and large bowel loops are unremarkable. No abdominal wall defect or bony destructive lesion is appreciated. IMPRESSION: Status post lumbar spine fusion. The gallbladder, appendix, and uterus are surgically absent. No acute abdominal or pelvic abnormality seen. <Electronically signed by Jayy Galicia > 06/27/20 1007
[2020-06-27 10:28] LABS: CPK CREATINE PHOSPHOKINASE 84 U/L (26-192); MAGNESIUM LEVEL 2.2 MG/DL (1.8-2.4); PHOSPHORUS LEVEL 6.3 MG/DL (2.5-4.9); URIC ACID 11.7 MG/DL (2.6-6.0)
[2020-06-27] MEDS ORDERED: KCL 10MEQ/100ML SWI (KRUN) 10 MEQ in IV 1 EA IV ONE (10:45)
[2020-06-27] MEDS ORDERED: NS 3,000 ML IV ONE (10:45)
[2020-06-27 11:04] LABS: VENOUS BASE EXCESS -15.9 (-2.0-2.0); VENOUS HCO3 12.8 MEQ/L (23.0-27.0); VENOUS O2 SATURATION 94.5 % (60.0-80.0); VENOUS PARTIAL PRESSURE CO2 40.5 mmHg (38.0-50.0); VENOUS PARTIAL PRESSURE O2 84.1 mmHg (30.0-50.0); VENOUS PH 7.117 UNITS (7.330-7.430); VENOUS STANDARD HCO3 12.4 MEQ/L
[2020-06-27] MEDS ORDERED: ESCI10TA2 PO (11:15)
[2020-06-27] MEDS ORDERED: LEVO125T4 PO (11:15)
[2020-06-27] MEDS ORDERED: HYDR200T3 PO (11:15)
[2020-06-27] MEDS ORDERED: FERR325T16 PO (11:17)
[2020-06-27] MEDS ORDERED: D31000TA2 PO (11:22)
[2020-06-27] MEDS ORDERED: MED REC COMMENT (11:24)
[2020-06-27 11:28] LABS: INR 0.97; PROTHROMBIN TIME 13.1 SECONDS (12.5-14.3)
--- NOTE | 2020-06-27 11:44 | HPEPDOC ---
[facility] Medical History & Physical Date of Admission Jun 27, 2020 Date of Service: Jun 27, 2020 Attending Physician: CAMPOS HEATH MD History and Physical CHIEF COMPLAINT: One month history of nausea and vomiting HISTORY OF PRESENT ILLNESS: Patient is a 62-year-old female past history significant for hypertension, rheumatoid arthritis, hyperlipidemia, COPD, depression and hypothyroid who presented to the emergency department the morning of 06/27/2020 with a chief complaint of nausea and vomiting for 4 weeks duration. Patient states that she began having difficulty keeping down solid foods proximally 4 weeks ago. She states that she reported this to her GI doctor, Dr. Manning who subsequently ordered an MRI. She reports that this MRI does not indicate any acute pathology. Per the patient, a stool sample was also taken that did show some inflammatory markers. She was then scheduled for a upper and lower endoscopy on 07/01/20. Over the last 4 weeks, she is continued to have difficulty with solid foods. This is been in the setting of approximately 8-10 loose stools per day. Over the last 2-3 days, patient reports that she has been having difficulty keeping down liquids secondary to nausea and vomiting. She does report some generalized, nonspecific right lower quadrant abdominal pain with deep palpation. She shares that she has been taking approximately 6 Aleve per day for roughly the last month without any improvement. In the ED, patient was noted to be afebrile, pulse 73, respiratory rate of 18, hypotensive with a blood pressure 94/55 (68). Patient is maintaining an oxygen saturation of 98% with 2 L via nasal cannula. CBC demonstrated a mild leukocytosis of 14.4. H/H of 13.6/39.6. Neutrophil count of 16.3. Chemistry showed a sodium of 131, potassium of 2.7. BUNs/creatinine of 60/5.68 with a GFR of 8.1. Uric acid of 11.7. VBG consistent with a metabolic acidosis pH of 7.1, PCO2 40.5 and a PO2 of 84.1. CT of the patient's chest and abdomen were without any acute findings. Hospitalist team was contacted for admission. Patient will be admitted to the ICU for close monitoring of her electrolytes and rehydration. PAST MEDICAL HISTORY: Rheumatoid arthritis Delta-Granule Disease, platelet storage pool disease Gout COPD, non-O2 dependent Depression Hyperlipidemia Hypertension Hypothyroid Asthma Degenerative disc disease PAST SURGICAL HISTORY: Appendectomy Hysterectomy Cholecystectomy SOCIAL HISTORY: Patient is , she lives in [place] in a single story apartment with her , one son and disabled sister. She is retired. She utilizes glasses, cane for ambulation and does have dentures. She reports that she has been smoking since she was 15 years old. She previously smoked approximately 1 pack per day until a few months ago when she cut back to 5 cigarettes per day. Reports occasional alcohol use, one wine cooler per month. Denies any illicit drug use. FAMILY HISTORY: Father: , aneurysm Mother: Emphysema Siblings: One sister with cerebral palsy Children: 2 sons and 1 daughter, healthy Reports remote family history of colon and breast cancer. Denies any pancreatic or prostate cancer. ALLERGIES: Please see below. REVIEW OF SYSTEMS: CONSTITUTIONAL: Denies any recent fevers. Patient does report subjective chills for a number of months. Denies any night sweats. Patient reports approximately a 40 pound weight loss over the last 8 months. Points decreased appetite. HEENT: Patient reports intermittent headaches, amenable to OTC therapy. CARDIOVASCULAR: Denies any chest pain, palpitations or an appropriate tachycardia. RESPIRATORY: Patient does have underlying COPD, reports adequate control with inhalers. No recent cough, or exacerbation. Denies any sputum production. GASTROINTESTINAL: Reports vague, nonspecific, right lower quadrant pain. Reports a 4 week history of nausea and vomiting. GENITOURINARY: Reports decreased urination over the last 2 weeks. She states that she currently reports approximately 3 times per day, Lovenox of urine is limited. Reports that her urine is light yellow in color. Denies any obvious blood or bleeding. No dysuria. SKIN: Denies any recent skin lesions, rashes or easy bruising. MUSCULOSKELETAL: Denies any significant muscle/joint aches or pains NEUROLOGICAL: Reports a few week history of dizziness and lightheadedness. PSYCHIATRIC: Patient carries a history of depression though she reports that her mood symptoms are stable. Denies any SI or HI. HEMATOLOGIC/LYMPHATIC: Patient carries a history of delta granule deficiency, states that she does follow with application counselor. HOME MEDICATIONS: Please see below. PHYSICAL EXAMINATION: VITAL SIGNS: Please see below GENERAL APPEARANCE: She is interviewed and examined in the emergency department. Patient was found to be resting comfortably in bed. She was easily arousable. Pleasant, conversant, able to provide accurate medical history. She does not appear in any acute distress. HEENT: Normocephalic, atraumatic, EOMI, PERRLA, mucous membranes are dry. Trachea is midline, face is symmetric. No apparent scleral icterus or conjunctival injection. CARDIOVASCULAR: Regular rate and rhythm, normal S1 and S2 without any murmurs LUNGS: Good auscultation bilaterally, no wheezes rales or rhonchi appreciated. Fair movement throughout. ABDOMEN: Patient did experience some mild right lower quadrant tenderness with deep palpation. No apparent guarding or rigidity noted. No masses or organomegaly appreciated. Bowel sounds were present throughout. EXTREMITIES: Patient is able to move her extremities bilaterally. No lower extremity edema or calf tenderness. Radial and posterior tibial pulses 2+ bi laterally. L-sided surgical scar noted, clean. NEUROLOGICAL: Strength 5 out of 5 in 4 out of 5. PSYCHIATRIC: Mood affect are appropriate given patient's current clinical condition. LABORATORY DATA: See below. IMAGING: Abdomen/pelvis CT (06/27/20): Status post lumbar spine fusion, the gallbladder appendix and uterus are surgically absent. No acute abdominal or pelvic abnormality seen. Chest CT (06/27/20): No active cardio pulmonary disease seen. MICROBIOLOGY: GI panel (06/27/2020): Pending ASSESSMENT: Patient is a 64-year-old female, past medical history significant for rheumatoid arthritis, COPD, hyperlipidemia, hypertension, hypothyroid and delta granule deficiency who presented to the emergency department on 06/27/2020 chief complaint of nausea vomiting and decreased oral intake for 4 weeks. Patient was found to have significant SUMI evidence of acute renal failure. Patient to be admitted to the ICU for further monitoring, aggressive IV hydration and electrolyte repletion. PLAN: #SUMI, Renal Failure -BUNs creatinine of 60/5.7, elevated uric acid level of 11.7 which supports likely prerenal etiology, most likely secondary to patient's significant deh ydration. -Aggressive hydration with 4L NS bolus followed by maintenance fluids with K+ -Pt reports she has been taking 6/day for roughly 30 days, may be contributing. -Renal US for possible medical disease/CKD #Hypokalemia -Will replete with IV K as patient is unable to tolerate PO. -BMP/Mg every 4 hours for close monitoring. #Anion gap metabolic acidosis -Suspect 2/2 to SUMI -ABG to be obtained -Will add bicarbonate to IVF, close monitoring of K #Fuhso-jz-Tottvof Diarrhea -C.Diff negative, GI panel pending -Stool occult, Histo urine antigen -Possible IBD etiology, patient also diagnosed with RA -Plan to investigate further following clinical stabilization, likely require colonoscopic evaluation. -Outpatient colonoscopy/EGD scheduled for 07/01 #Hypotension -Improving s/p NS boluses -Supports pre-renal causes #Bilateral shoulder pain -S/P L shoulder replacement in 04/13 via SOS #CAD, angina -Patient has a history of CAD -Placed on Plavix by cardiology given inability to take ASA and hx of exertional chest pain. -Statin intolerant #Platelet Storage Pool Disease -Follows with Heme/Onc CODE STATUS: Full Code DVT PROPHYLAXIS: SQ Heparin DISPOSITION: Anticipate >2 night stay Vital Signs Vital Signs Date Time Temp Pulse Resp B/P (MAP) Pulse Ox O2 Delivery O2 Flow Rate FiO2 06/27/20 10:00 73 18 94/55 (68) 98 Nasal Cannula 2.0 06/27/20 08:31 97.0 Laboratory Data Labs 24H Laboratory Tests 2 06/27/20 08:57: Immature Granulocyte % (Auto) 0.4, Neutrophils (%) (Auto) 68.3H, Lymphocytes (%) (Auto) 17.1L, Monocytes (%) (Auto) 9.3H, Eosinophils (%) (Auto) 4.4H, Basophils (%) (Auto) 0.5, Neutrophils # (Auto) 9.8H, Lymphocytes # (Auto) 2.5, Monocytes # (Auto) 1.3H, Eosinophils # (Auto) 0.6H, Basophils # (Auto) 0.1, Nucleated Red Blood Cells % (auto) 0.0, Prothrombin Time 13.1, Prothromb Time International Ratio 0.97, Anion Gap 14, Glomerular Filtration Rate 8.1L, Osmolality 296, Uric Acid 11.7H, Calcium Level 8.5L, Phosphorus Level 6.3H, Magnesium Level 2.2, Total Bilirubin 2.5H, Direct Bilirubin 0.1, Aspartate Amino Transf (AST/SGOT) 7, Alanine Aminotransferase (ALT/SGPT) < 6L, Alkaline Phosphatase 82, Total Creatine Kinase 84, Total Protein 6.8, Albumin 3.5, Albumin/Globulin Ratio 1.1L, Lipase 291 06/27/20 09:11: POC Glucose (Misc Panel) 106H, POC Sodium (Misc Panel) 134L, POC Potassium (Misc Panel) 2.7*L, POC Chloride (Misc Panel) 106, POC Total CO2 (Misc Panel) 14.0L, POC Blood Urea Nitrogen (Misc Panel 56H, POC Ionized Calcium (Misc Panel) 4.4L, POC Creatinine (Misc Panel) 5.8H, POC Hematocrit (Misc Panel) 42.0 06/27/20 09:50: Coronavirus (COVID-19)(PCR) NEGATIVE, Influenza Type A (RT-PCR) NEGATIVE, Influenza Type B (RT-PCR) NEGATIVE, Respiratory Syncytial Virus (PCR) NEGATIVE 06/27/20 10:53: Blood Gas Bicarbonate Standard 12.4, Venous Blood pH 7.117L, Venous Blood Partial Pressure CO2 40.5, Venous Blood Partial Pressure O2 84.1H, Venous Blood Total Carbon Dioxide 14.0L, Venous Blood HCO3 12.8L, Venous Blood Oxygen Saturation 94.5H, Venous Blood Base Excess -15.9L CBC/BMP Laboratory Tests 06/27/20 08:57 Home Medications Scheduled Aminocaproic Acid (Aminocaproic Acid) 500 Mg Tablet, 500 MG PO ASDIRECTED take 2000 mg (4 tabs) by mouth 3x a day x 2 days post procedure Ascorbic Acid (Vitamin C) 500 Mg Cap, 500 MG PO DAILY Carvedilol (Carvedilol) 3.125 Mg Tab, 3.125 MG PO BID Cholecalciferol (Vitamin D3) (Vitamin D3) 1,000 Unit Tablet, 1,000 UNITS PO DA KELLIE Clopidogrel Bisulfate (Clopidogrel) 75 Mg Tab, 75 MG PO DAILY Escitalopram Oxalate (Escitalopram Oxalate) 10 Mg Tablet, 10 MG PO DAILY Famotidine (Famotidine) 20 Mg Tablet, 20 MG PO BID Ferrous Gluconate (Ferrous Gluconate) 324 Mg Tablet, 324 MG PO BID Fluticasone Propion/Salmeterol (Advair Hfa 115-21 Mcg Inhaler) 1 Aer Aer, 2 PUFF INH BID Gabapentin (Gabapentin) 300 Mg Cap, 300 MG PO TID Hydroxychloroquine Sulfate (Hydroxychloroquine Sulfate) 200 Mg Tablet, 400 MG PO DAILY Levothyroxine Sodium (Levothyroxine Sodium) 125 Mcg Tablet, 125 MCG PO DAILY Lisinopril (Lisinopril) 20 Mg Tab, 20 MG PO DAILY Sulfasalazine (Sulfasalazine) 500 Mg Tab, 500 MG PO BID Scheduled PRN Albuterol Sulfate (Ventolin Hfa) 108 Mcg/Act Aer, 2 PUFF INH Q4H PRN for SHOR TNESS OF BREATH Ipratropium/Albuterol Sulfate (Iprat-Albut 0.5-3(2.5) mg/3 ml) 1 Katelyn Katelyn, 1 VIAL NEB Q4H PRN for SHORTNESS OF BREATH Methocarbamol (Methocarbamol) 500 Mg Tablet, 500 MG PO QID PRN for MUSCLE SPASMS Nitroglycerin (Nitrostat) 0.4 Mg Subl, 0.4 MG SL PRN PRN for CHEST PAIN Miscellaneous Medications [Med Rec Comment] LIST OBTAINED FROM [facility] AND [facility] VISIT, UNABLE TO VERIFY WITH PT Allergies Coded Allergies: aspirin (Verified Adverse Reaction, Intermediate, VOMITNG, 06/23/20) cafedrine (Verified Adverse Reaction, Intermediate, CAUSED VOMITING, 06/23/20) codeine (Verified Adverse Reaction, Intermediate, VOMITING, 06/23/20) nicergoline (Verified Adverse Reaction, Unknown, Seizure, 06/23/20) A-FIB/CHADSVASC A-FIB History Current/History of A-Fib/PAF?: No Current PO Anticoag Therapy: No RORY LOPEZ DO Jun 27, 2020 11:44
[2020-06-27] MEDS: KCL 10MEQ/100ML SWI (KRUN) 10 MEQ in IV 1 EA IV SCH ×7 (12:44→22:36)
[2020-06-27 13:23] LABS: ABG BASE EXCESS -15.6 (-2.0-2.0); ABG HCO3 12.6 MEQ/L (22.0-26.0); ABG O2 SATURATION 97.1 % (95.0-99.0); ABG PARTIAL PRESSURE CO2 38.4 mmHg (35.0-45.0); ABG PARTIAL PRESSURE O2 108.5 mmHg (75.0-100.0); ABG STANDARD HCO3 12.6 MEQ/L (22.0-26.0); ABG TOTAL CO2 13.8 MEQ/L (23.0-31.0)
[2020-06-27 13:25] LABS: ABG pH (ARTERIAL) 7.135 UNITS (7.350-7.450)
[2020-06-27] MEDS: ACETAMINOPHEN TAB 650MG DOSE (2X325MG) PO PRN (13:40)
[2020-06-27 14:01] LABS: BLOOD UREA NITROGEN 58 MG/DL (7-18); CALCIUM LEVEL 7.7 MG/DL (8.8-10.2); CARBON DIOXIDE LEVEL 13 MEQ/L (21-32); CHLORIDE LEVEL 112 MEQ/L (98-107); CREATININE FOR GFR 4.71 MG/DL (0.55-1.30); GLUCOSE, FASTING 94 MG/DL (70-100); POTASSIUM SERUM 2.9 MEQ/L (3.5-5.1); SODIUM LEVEL 137 MEQ/L (136-145)
[2020-06-27] MEDS: SODIUM BICARBONATE 50 MEQ in D5W/0.45% SODIUM CHLORIDE 1,000 ML IV SCH ×2 (15:39→20:29)
[2020-06-27 16:09] LABS: OSMOLALITY URINE 298 MOSM/KG (500-800)
[2020-06-27 16:10] LABS: CK-MB VALUE MASS 4.9 NG/ML (<3.6); CPK CREATINE PHOSPHOKINASE 79 U/L (26-192); TROPONIN I < 0.02 NG/ML (< 0.10)
[2020-06-27 16:11] LABS: APPEARANCE, URINE HAZY (CLEAR); BACTERIA, URINE AUTO NEGATIVE (NEGATIVE); BILIRUBIN, URINE AUTO 2+ (NEGATIVE); BLOOD, URINE BLOOD NEGATIVE (NEGATIVE); COLOR, URINE YELLOW (YELLOW); GLUCOSE, URINE (UA) AUTO NEGATIVE (NEGATIVE); KETONE, URINE AUTO NEGATIVE (NEGATIVE); LEUKOCYTE ESTERASE, URINE AUTO TRACE (NEGATIVE); MUCUS, URINE SMALL (NEGATIVE); NITRITE, URINE AUTO NEGATIVE (NEGATIVE); PROTEIN, URINE AUTO 1+ mg/dL (NEGATIVE); RBC, URINE AUTO 6 /HPF (0-3); SPECIFIC GRAVITY URINE AUTO 1.023 (1.002-1.035); SQUAMOUS EPITHELIAL CELL UR AU 0 /HPF (0-6); UROBILINOGEN, URINE AUTO 0.2 mg/dL (0.0-2.0); WBC, URINE AUTO 6 /HPF (0-3)
[2020-06-27 16:29] LABS: SODIUM,RANDOM URINE < 10 MEQ/L
[2020-06-27 17:59] LABS: ABG HCO3 11.6 MEQ/L (22.0-26.0); ABG O2 SATURATION 96.3 % (95.0-99.0); ABG PARTIAL PRESSURE CO2 33.6 mmHg (35.0-45.0); ABG PARTIAL PRESSURE O2 87.6 mmHg (75.0-100.0); ABG STANDARD HCO3 12.3 MEQ/L (22.0-26.0); ABG TOTAL CO2 12.6 MEQ/L (23.0-31.0)
[2020-06-27 18:00] LABS: ABG pH (ARTERIAL) 7.156 UNITS (7.350-7.450)
[2020-06-27 19:52] LABS: BLOOD UREA NITROGEN 53 MG/DL (7-18); CALCIUM LEVEL 6.9 MG/DL (8.8-10.2); CARBON DIOXIDE LEVEL 14 MEQ/L (21-32); CHLORIDE LEVEL 112 MEQ/L (98-107); CREATININE FOR GFR 4.04 MG/DL (0.55-1.30); GLOMERULAR FILTRATION RATE 11.9 (>45); GLUCOSE, FASTING 91 MG/DL (70-100); LDH LACTATE DEHYDROGENASE 173 U/L (84-246); MAGNESIUM LEVEL 1.8 MG/DL (1.8-2.4); POTASSIUM SERUM 3.4 MEQ/L (3.5-5.1); SODIUM LEVEL 141 MEQ/L (136-145); TROPONIN I < 0.02 NG/ML (< 0.10)
[2020-06-27] MEDS: NICOTINE 21MG/24HR 1 EA TRANSDERMAL TD SCH (20:30)
[2020-06-27] MEDS: HEPARIN SOD (PORCINE) 5000UNITS/ML 1ML VIAL/SYRINGE SC SCH (21:32)
[2020-06-27 21:38] LABS: ABG BASE EXCESS -17.2 (-2.0-2.0); ABG HCO3 10.5 MEQ/L (22.0-26.0); ABG PARTIAL PRESSURE CO2 31.3 mmHg (35.0-45.0); ABG PARTIAL PRESSURE O2 102.1 mmHg (75.0-100.0); ABG STANDARD HCO3 11.5 MEQ/L (22.0-26.0); ABG TOTAL CO2 11.4 MEQ/L (23.0-31.0)
[2020-06-27 21:39] LABS: ABG pH (ARTERIAL) 7.143 UNITS (7.350-7.450)
[2020-06-27 21:53] LABS: CORTISOL PM 19.8 UG/DL (3.1-16.7)
[2020-06-28] VITALS (16 sets, daily range): BP systolic 87–127; BP diastolic 47–78
[2020-06-28] MEDS: SODIUM BICARBONATE 50 MEQ in D5W/0.45% SODIUM CHLORIDE 1,000 ML IV SCH ×3 (00:54→11:25)
[2020-06-28 02:01] LABS: ABG BASE EXCESS -13.5 (-2.0-2.0); ABG HCO3 13.7 MEQ/L (22.0-26.0); ABG O2 SATURATION 98.2 % (95.0-99.0); ABG PARTIAL PRESSURE O2 118.3 mmHg (75.0-100.0); ABG TOTAL CO2 14.8 MEQ/L (23.0-31.0)
[2020-06-28 02:02] LABS: ABG pH (ARTERIAL) 7.197 UNITS (7.350-7.450)
[2020-06-28 02:27] LABS: CALCIUM LEVEL 6.5 MG/DL (8.8-10.2); CREATININE FOR GFR 2.91 MG/DL (0.55-1.30); GLOMERULAR FILTRATION RATE 17.4 (>45); POTASSIUM SERUM 3.1 MEQ/L (3.5-5.1)
[2020-06-28] MEDS: KCL 10MEQ/100ML SWI (KRUN) 10 MEQ in IV 1 EA IV SCH ×6 (02:40→08:53)
[2020-06-28] MEDS: HEPARIN SOD (PORCINE) 5000UNITS/ML 1ML VIAL/SYRINGE SC SCH ×3 (05:50→20:36)
--- NOTE | 2020-06-28 06:38 | ECGEPIP ---
[facility] - ED Test Date: 2020-06-27 Pat Name: NAVNEET MARTIN Department: Room: - Gender: Female Financial Sales Advisor: chris : [id number] Requested By: Yoko Sanchez Order Number: [id number] Reading MD: Harsha Lang Measurements Intervals [place] Rate: 77 P: 26 AR: 145 QRS: 2 QRSD: 113 T: 50 QT: 451 QTc: 511 Interpretive Statements SINUS RHYTHM WITH SINUS ARRHYTHMIA POSSIBLE INFERIOR MYOCARDIAL INFARCTION, PROBABLY OLD INFEROLATERAL CHANGES - NONSPECIFIC ST T WAVE CHANGES VS ISCHEMIA DELAYED R WAVE PROGRESSION PROLONGED QTC NO PRIOR ECG FOR COMPARISON CLINICAL CORRELATION ADVISED Electronically Signed on 06-28-2020 6:37:59 EST by Harsha Lang
--- NOTE | 2020-06-28 07:04 | IPNPDOC ---
Text Note Date of Service The patient was seen on 06/28/20. NOTE SUBJECTIVE: Overnight, patient's laboratory values vital signs of continuing to improve. Of note, her renal function has seen significant improvement since presentation. Her potassium is slowly being repleted and remains low. Acidosis is still present, though also improved. Subjectively, patient reports that she is feeling much better. She states that she has not had any bouts of emesis since admission. She has had one single loose stool this morning which as been sent for GI studies. Her urine output has remained steady. OBJECTIVE: VITAL SIGNS: Please see below GENERAL APPEARANCE: She is interviewed and examined in the her ICU room. Patient was found to be resting comfortably in bed. She was easily arousable. Pleasant, conversant. She does not appear in any acute distress. HEENT: Normocephalic, atraumatic, EOMI, PERRLA, mucous membranes are dry. Trachea is midline, face is symmetric. No apparent scleral icterus or conjunct ival injection. CARDIOVASCULAR: Regular rate and rhythm, normal S1 and S2 without any murmurs LUNGS: Good auscultation bilaterally, no wheezes rales or rhonchi appreciated. Fair movement throughout. ABDOMEN: Patient did experience some mild right lower quadrant tenderness with deep palpation. No apparent guarding or rigidity noted. No masses or organomegaly appreciated. Bowel sounds were present throughout. EXTREMITIES: Patient is able to move her extremities bilaterally. No lower extremity edema or calf tenderness. Radial and posterior tibial pulses 2+ bilaterally. L-sided surgical scar noted, clean. NEUROLOGICAL: Strength 5 out of 5 in 4 out of 5. PSYCHIATRIC: Mood affect are appropriate given patient's current clinical condition. IMAGING: Abdomen/pelvis CT (06/27/20): Status post lumbar spine fusion, the gallbladder appendix and uterus are surgically absent. No acute abdominal or pelvic abnormality seen. Chest CT (06/27/20): No active cardio pulmonary disease seen. ASSESSMENT: Patient is a 64-year-old female, past medical history significant for rheumatoid arthritis, COPD, hyperlipidemia, hypertension, hypothyroid and delta granule deficiency who presented to the emergency department on 06/27/2020 chief complaint of nausea vomiting and decreased oral intake for 4 weeks. Patient was found to have significant SUMI evidence of acute renal failure. Patient was admitted to the ICU for further monitoring, aggressive IV hydration and electrolyte repletion. Overnight, patient's renal function has steadily improved. She continues to require potassium repletion. Per her ABG, she remains acidotic, plan to repeat ABG in Q6H until resolved. Currently remains on maintenance fluids with bicarbonate at 250 mL/hr. Will transition to D5 with 2 amps of bicarb to speed acidosis resolution and prevent further hyperchloremia. Patient reports that she is hungry and as such, we will progress towards a full diet. There remains some question as to whether or not patient's previous difficulty with both solids and liquids is related to a mechanical obstruction process. If she again begins to have difficulty, we will investigate further with a swallow eval. PLAN: #SUMI, Renal Failure, pre-renal azotemia -Pre-renal etiology remains at the top of the differential, supported via labs and FeNa -Renal function continues to improve s/p hydration. Presenting BUN/Cr of 60/5.68, 44/2.91 this morning. -GFR improved from 8.1 to 17.4 -Pt reports she has been taking 6/day for roughly 30 days, which may be contri buting. -She also takes lisinopril at home for HTN, which in combination with heavy NSAID use, greatly constricts the afferent arteriole and most likely accelerated renal hypoperfusion. -Renal US for possible medical disease/CKD #Anion gap metabolic acidosis -Suspect 2/2 to SUMI, diarrhea -Serial monitoring of ABGs, pH has improved from 7.135 to 7.197 -On presentation, bicarbonate 12.6, steadily improved to 13.7, using D51/2NS with 1 amp of bicarb overnight. -Will change to D5 with 2 amps of bicarb to help accelerate resolution of the acidosis and help prevent further hyperchloremia. -ABG at 1200 on 06/28/20 shows improving pH of 7.284, bicarb stable. -Repeat ABG for 1800 #Hypokalemia -Patient is s/p K runs for repletion -Will attempt diet progression to PO today. If tolerable, will give K repletion PO going forward. #Hypomagnesemia -1.5 this am -Repletion with Mg Run x2, expect resultant improvement in hypocalcemia. -Repeat at 1800 #Hypocalcemia -Ionized Ca++ of 4.1 -1 gram of calcium gluconate -Magnesium repletion as above. -Repeat at 1800 #Hyperphosphatemia -Correction of underlying SUMI and acidosis -Consider phosphate binder if imbalance fails to improve. -Repeat at 1800 #[id number] Diarrhea -Patient has had only 1 loose stool in the last 24 hours. -C.Diff negative, GI panel pending -Stool occult negative, Histo urine antigen -Possible IBD etiology, patient also diagnosed with RA -Plan to investigate further following clinical stabilization, likely require colonoscopic evaluation. -Outpatient colonoscopy/EGD scheduled for 07/01 #Nausea/Vomiting -No episodes of emesis while hospitalized -Patient has continued on clear-liquid diet, will advance today -Per history, patient reports difficulty with first solids then liquids. -Mechanical causes for dysphagia/emesis remain on the table -Monitor closely, consider swallow eval pending clinical improvement. #Hypotension -AM cortisol ordered, r/o possible adrenal insufficiency being a concomitant f actor, found to be elevated. -Improving s/p NS boluses -Supports pre-renal causes #Bilateral shoulder pain -S/P L shoulder replacement in 04/13 via SOS -We will restart patient's PO gabapentin today if she is able to tolerate PO intake. #Lice -Noted at 0830 on 06/28/20 -Isolation precautions -Nix shampoo, lice comb #CAD, angina -Patient has a history of CAD -Placed on Plavix by cardiology given inability to take ASA and hx of exertional chest pain. -Statin intolerant #Platelet Storage Pool Disease -Follows with Heme/Onc DVT PROPHYLAXIS: SQ Heparin CODE STATUS: Full Code DISPOSITION: Anticipate downgrading from ICU once acidosis has resolved VS,Fishbone, I+O VS, Fishbone, I+O Laboratory Tests 06/27/20 08:57 06/27/20 13:32 06/27/20 19:16 06/28/20 01:59 Vital Signs Date Time Temp Pulse Resp B/P (MAP) Pulse Ox O2 Delivery O2 Flow Rate FiO2 06/28/20 06:00 78 97/52 (67) 98 Room Air 06/28/20 04:00 98.5 16 06/27/20 12:00 2.0 I&O- Last 24 Hours up to 6 AM 06/28/20 06:00 Intake Total 88758 ml Output Total 1330 ml Balance 9095 ml GME ATTESTATION GME ATTESTATION My faculty preceptor for this patient encounter was physically present during the encounter and was fully available. All aspects of the patient interview, examination, medical decision making process, and medical care plan development were reviewed and approved by the faculty preceptor. The faculty preceptor is aware and concurs with the plan as stated in the body of this note and will att est to such by his/her cosignature. ATTENDING NOTE I, Ronal Cummings, saw and evaluated the patient. I agree with the findings and the plan of care as documented in the resident's note. RORY OLPEZ DO Jun 28, 2020 07:04 RONAL CUMMINGS DO Jun 28, 2020 18:42
[2020-06-28 08:16] LABS: ABG BASE EXCESS -11.5 (-2.0-2.0); ABG HCO3 14.9 MEQ/L (22.0-26.0); ABG O2 SATURATION 94.9 % (95.0-99.0); ABG PARTIAL PRESSURE CO2 35.5 mmHg (35.0-45.0); ABG PARTIAL PRESSURE O2 70.6 mmHg (75.0-100.0); ABG STANDARD HCO3 15.3 MEQ/L (22.0-26.0)
[2020-06-28 08:20] LABS: ABG pH (ARTERIAL) 7.241 UNITS (7.350-7.450)
[2020-06-28 08:45] LABS: CLOSTRIDIUM DIFFICILE PCR NEGATIVE (NEGATIVE)
[2020-06-28] MEDS: NICOTINE 21MG/24HR 1 EA TRANSDERMAL TD SCH (08:53)
[2020-06-28] MEDS: GABAPENTIN 300 MG CAP PO SCH ×3 (08:53→20:37)
[2020-06-28 09:10] LABS: HEMATOCRIT 33.3 % (36.0-47.0); MEAN CORPUSCULAR HEMOGLOBIN 33.7 pg (27.0-33.0); MEAN CORPUSCULAR HGB CONC 34.5 g/dl (32.0-36.5); MEAN CORPUSCULAR VOLUME 97.7 fl (80.0-96.0); PLATELET COUNT, AUTOMATED 155 10^3/uL (150-450); RED BLOOD COUNT 3.41 10^6/uL (4.00-5.40); WHITE BLOOD COUNT 11.9 10^3/uL (4.0-10.0)
[2020-06-28 09:15] LABS: HEMOGLOBIN 11.5 g/dl (12.0-15.5)
[2020-06-28 09:36] LABS: CALCIUM LEVEL 6.8 MG/DL (8.8-10.2); CREATININE FOR GFR 2.21 MG/DL (0.55-1.30); MAGNESIUM LEVEL 1.5 MG/DL (1.8-2.4); POTASSIUM SERUM 3.6 MEQ/L (3.5-5.1)
[2020-06-28] MEDS ORDERED: NIX CREME RINSE 1% 60 ML KIT TOP ONE (11:00)
[2020-06-28 11:45] LABS: FREE T4 0.62 NG/DL (0.76-1.46)
[2020-06-28 12:06] LABS: ABG BASE EXCESS -11.1 (-2.0-2.0); ABG HCO3 14.3 MEQ/L (22.0-26.0); ABG O2 SATURATION 96.6 % (95.0-99.0); ABG PARTIAL PRESSURE CO2 30.9 mmHg (35.0-45.0); ABG STANDARD HCO3 15.6 MEQ/L (22.0-26.0); ABG TOTAL CO2 15.3 MEQ/L (23.0-31.0); ABG pH (ARTERIAL) 7.284 UNITS (7.350-7.450)
[2020-06-28] MEDS ORDERED: CALCIUM GLUCONATE 1,000 MG in D5W MINI-BAG PLUS 100 ML IV ONE (13:00)
[2020-06-28] MEDS ORDERED: SODIUM BICARBONATE 100 MEQ in D5W 1,000 ML IV SCH (13:00)
[2020-06-28 14:30] LABS: CALCIUM LEVEL 7.1 MG/DL (8.8-10.2); CREATININE FOR GFR 2.07 MG/DL (0.55-1.30); GLOMERULAR FILTRATION RATE 25.8 (>45); PHOSPHORUS LEVEL 2.3 MG/DL (2.5-4.9); POTASSIUM SERUM 3.9 MEQ/L (3.5-5.1)
[2020-06-28] MEDS: MAG SULF 1GM/100ML (MAG RUN) 1 GM in IV 1 EA IV SCH ×2 (14:58→16:02)
[2020-06-28] MEDS ORDERED: IPRATROPIUM 0.5MG/ALBUTEROL 2.5MG INH SOL UD 3ML (DUONEB) NEB PRN (18:00)
[2020-06-28 18:20] LABS: ABG BASE EXCESS -7.7 (-2.0-2.0); ABG O2 SATURATION 97.1 % (95.0-99.0); ABG PARTIAL PRESSURE CO2 31.9 mmHg (35.0-45.0); ABG PARTIAL PRESSURE O2 86.4 mmHg (75.0-100.0); ABG STANDARD HCO3 18.3 MEQ/L (22.0-26.0); ABG pH (ARTERIAL) 7.344 UNITS (7.350-7.450)
[2020-06-28 18:47] LABS: CALCIUM LEVEL 7.8 MG/DL (8.8-10.2); CREATININE FOR GFR 1.87 MG/DL (0.55-1.30); PHOSPHORUS LEVEL 2.2 MG/DL (2.5-4.9); POTASSIUM SERUM 3.6 MEQ/L (3.5-5.1)
[2020-06-28] MEDS: LR 1,000 ML IV SCH (18:57)
[2020-06-28] MEDS: ADVAIR HFA 115/21MCG INHALER INH SCH (20:27)
[2020-06-28] MEDS: FAMOTIDINE 20 MG TAB PO SCH (20:37)
[2020-06-28] MEDS: FERROUS GLUCONATE 324 MG TAB PO SCH (20:37)
[2020-06-29] VITALS (7 sets, daily range): BP systolic 90–136; BP diastolic 50–81
[2020-06-29 00:45] LABS: CALCIUM LEVEL 7.8 MG/DL (8.8-10.2); CREATININE FOR GFR 1.48 MG/DL (0.55-1.30); POTASSIUM SERUM 3.2 MEQ/L (3.5-5.1)
[2020-06-29] MEDS: KCL 10MEQ/100ML SWI (KRUN) 10 MEQ in IV 1 EA IV SCH ×5 (03:05→08:31)
[2020-06-29] MEDS: LR 1,000 ML IV SCH ×2 (04:11→14:32)
[2020-06-29] MEDS: HEPARIN SOD (PORCINE) 5000UNITS/ML 1ML VIAL/SYRINGE SC SCH ×3 (05:27→21:41)
[2020-06-29] MEDS: LEVOTHYROXINE 125MCG TABLET (0.125MG) PO SCH (05:27)
[2020-06-29 06:03] LABS: ABG BASE EXCESS -8.7 (-2.0-2.0); ABG HCO3 15.9 MEQ/L (22.0-26.0); ABG O2 SATURATION 98.2 % (95.0-99.0); ABG PARTIAL PRESSURE CO2 30.3 mmHg (35.0-45.0); ABG PARTIAL PRESSURE O2 111.1 mmHg (75.0-100.0); ABG STANDARD HCO3 17.4 MEQ/L (22.0-26.0); ABG TOTAL CO2 16.9 MEQ/L (23.0-31.0); ABG pH (ARTERIAL) 7.339 UNITS (7.350-7.450)
[2020-06-29] MEDS: ADVAIR HFA 115/21MCG INHALER INH SCH ×2 (07:26→20:52)
[2020-06-29] MEDS: FAMOTIDINE 20 MG TAB PO SCH ×2 (08:32→21:39)
[2020-06-29] MEDS: GABAPENTIN 300 MG CAP PO SCH ×3 (08:32→21:39)
[2020-06-29] MEDS: FERROUS GLUCONATE 324 MG TAB PO SCH ×2 (08:32→21:39)
[2020-06-29] MEDS: ESCITALOPRAM OXALATE 10 MG TAB (LEXAPRO) PO SCH (08:32)
[2020-06-29] MEDS: NICOTINE 21MG/24HR 1 EA TRANSDERMAL TD SCH (08:33)
[2020-06-29 08:37] LABS: HEMATOCRIT 29.9 % (36.0-47.0); HEMOGLOBIN 10.3 g/dl (12.0-15.5); MEAN CORPUSCULAR HEMOGLOBIN 33.2 pg (27.0-33.0); MEAN CORPUSCULAR HGB CONC 34.4 g/dl (32.0-36.5); MEAN CORPUSCULAR VOLUME 96.5 fl (80.0-96.0); PLATELET COUNT, AUTOMATED 146 10^3/uL (150-450); WHITE BLOOD COUNT 10.9 10^3/uL (4.0-10.0)
[2020-06-29 09:43] LABS: CALCIUM LEVEL 7.7 MG/DL (8.8-10.2); CREATININE FOR GFR 1.18 MG/DL (0.55-1.30); FREE T4 0.79 NG/DL (0.76-1.46); GLOMERULAR FILTRATION RATE 49.4 (>45); MAGNESIUM LEVEL 1.8 MG/DL (1.8-2.4); PHOSPHORUS LEVEL 1.8 MG/DL (2.5-4.9); POTASSIUM SERUM 4.4 MEQ/L (3.5-5.1); THYROID STIMULATING HORMONE 34.7 uIU/ML (0.358-3.740)
[2020-06-29] MEDS ORDERED: SLF 3 ML SYR IV PRN (12:00)
[2020-06-29] MEDS: SLF 3 ML SYR IV SCH ×2 (14:06→21:40)
[2020-06-29 15:51] LABS: CALCIUM LEVEL 8.1 MG/DL (8.8-10.2); CREATININE FOR GFR 1.11 MG/DL (0.55-1.30); POTASSIUM SERUM 4.5 MEQ/L (3.5-5.1)
--- NOTE | 2020-06-29 23:12 | IPNPDOC ---
Subjective Date Seen The patient was seen on 06/29/20. Subjective Chief Complaint/HPI Mrs. Perdue is a 64 year old female with rheumatoid arthritis, delta-granule disease, and gout who is here with nausea and vomiting and found to have metabolic acidosis and SUMI. This morning, she was feeling better. She tolerated orals without nausea. Today Alfaro catheter and fluids will be discontinued Objective Physical Examination General Exam: Positive: Alert, Cooperative, No Acute Distress Eye Exam: Positive: EOMI; Negative: Sclera icteric ENT Exam: Positive: Atraumatic Neck Exam: Positive: Supple Chest Exam: Positive: Clear to auscultation Heart Exam: Positive: Rate Normal, Regular Rhythm Abdomen Exam: Positive: Normal bowel sounds, Soft Extremity Exam: Negative: Edema Neuro Exam: Positive: Normal Speech Psych Exam: Positive: Mental status NL, Mood NL Assessment /Plan Assessment Mrs. Perdue is a 64 year old female with rheumatoid arthritis, delta-granule disease, and gout who is here with nausea and vomiting and found to have metabolic acidosis and SUMI. She has made a marked recovery. Renal function close to normal and acidosis has resolved. Fluids and Alfaro catheter will be removed for voiding trial. Plan/VTE VTE Prophylaxis Ordered?: Yes Plan 1. Acute renal failure -On admission, creatinine was 5.68 -Baseline creatinine is around 0.7 -Today's creatinine 1.11 -Will stop IV fluids, encourage oral intake -Avoid nephrotoxic agents, supportive care 2. Metabolic acidosis -Secondary to acute renal failure -Resolving 3. Electrolyte disturbance -Hypokalemia has resolved -Magnesium at acceptable level -Calcium close to target goal 4. 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 Lice -Noted on 06/28/2020 -Isolation precautions -Nix shampoo and lice comb 7. DVT ppx -Heparin VS, I&O, 24H, Fishbone Vital Signs/I&O Vital Signs Date Time Temp Pulse Resp B/P (MAP) Pulse Ox O2 Delivery O2 Flow Rate FiO2 06/29/20 17:30 98.5 88 16 105/62 (76) 98 Room Air 06/27/20 12:00 2.0 I&O- Last 24 Hours up to 6 AM 06/29/20 06:00 Intake Total 2500 ml Output Total 1750 ml Balance 750 ml Laboratory Data 24H LABS Laboratory Tests 2 06/29/20 00:11: Anion Gap 8, Glomerular Filtration Rate 38.0L, Calcium Level 7.8L 06/29/20 05:41: Blood Gas Bicarbonate Standard 17.4L, Arterial Blood pH 7.339L, Arterial Blood Partial Pressure CO2 30.3L, Arterial Blood Partial Pressure O2 111.1H, Arterial Blood Total CO2 16.9L, Arterial Blood HCO3 15.9L, Arterial Blood Base Excess - 8.7L, Arterial Blood Oxygen Saturation 98.2 06/29/20 08:23: Anion Gap 5L, Glomerular Filtration Rate 49.4, Calcium Level 7.7L, Nucleated Red Blood Cells % (auto) 0.0, Phosphorus Level 1.8L, Magnesium Level 1.8, Thyroid Stimulating Hormone (TSH) 34.700H, Free Thyroxine 0.79 06/29/20 15:11: Anion Gap 5L, Glomerular Filtration Rate 53.0, Calcium Level 8.1L, Phosphorus Level 1.9L CBC/BMP Laboratory Tests 06/29/20 00:11 06/29/20 08:23 06/29/20 15:11 Microbiology Microbiology 06/28/20 Campylobacter (PCR), Received Pending 06/28/20 Clostridium difficile Toxin A&B PCR, Received Pending 06/28/20 Plesiomonas shigelloides (PCR), Received Pending 06/28/20 Salmonella (PCR)(IVA), Received Pending 06/28/20 Vibrio Species (PCR), Received Pending 06/28/20 Vibrio Cholerae (PCR), Received Pending 06/28/20 Yersinia enterocolitica (PCR), Received Pending 06/28/20 Enteroaggregative E. coli (PCR), Received Pending 06/28/20 Enteropathogenic E. coli (PCR), Received Pending 06/28/20 Enterotoxigenic E. coli (PCR), Received Pending 06/28/20 E. coli Shiga-like Toxin (PCR), Received Pending 06/28/20 Escherichia coli 0157 (PCR), Received Pending 06/28/20 Enteroinvasive E. coli/Shigella PCR, Received Pending 06/28/20 Cryptosporidium (PCR), Received Pending 06/28/20 Cyclospora cayetanensis (PCR), Received Pending 06/28/20 Entamoeba histolytica (PCR), Received Pending 06/28/20 Giardia lamblia (PCR), Received Pending 06/28/20 Adenovirus Type F 40/41 (PCR), Received Pending 06/28/20 Astrovirus (PCR), Received Pending 06/28/20 Norovirus GI/GII (PCR), Received Pending 06/28/20 Rotavirus A (PCR), Received Pending 06/28/20 Sapovirus I/II/IV/V (PCR), Received Pending 06/28/20 Stool Occult Blood (IVA) - Final, Complete 06/27/20 Blood Culture - Preliminary, Resulted No Growth after 48 hours. All Specime... 06/27/20 Blood Culture - Preliminary, Resulted No Growth after 48 hours. All Specime... VAISHALI CUMMINGS DO Jun 29, 2020 23:12
[2020-06-30] MEDS: ACETAMINOPHEN TAB 650MG DOSE (2X325MG) PO PRN (04:11)
[2020-06-30 06:00] VITALS: BP 107/61
[2020-06-30] MEDS: LEVOTHYROXINE 125MCG TABLET (0.125MG) PO SCH (06:08)
[2020-06-30] MEDS: SLF 3 ML SYR IV SCH ×2 (06:08→14:00)
[2020-06-30] MEDS: HEPARIN SOD (PORCINE) 5000UNITS/ML 1ML VIAL/SYRINGE SC SCH ×2 (06:09→14:00)
[2020-06-30 06:36] LABS: HEMATOCRIT 27.5 % (36.0-47.0); HEMOGLOBIN 9.2 g/dl (12.0-15.5); MEAN CORPUSCULAR HGB CONC 33.5 g/dl (32.0-36.5); MEAN CORPUSCULAR VOLUME 98.6 fl (80.0-96.0); PLATELET COUNT, AUTOMATED 151 10^3/uL (150-450); RED BLOOD COUNT 2.79 10^6/uL (4.00-5.40); WHITE BLOOD COUNT 9.2 10^3/uL (4.0-10.0)
[2020-06-30 07:05] LABS: BLOOD UREA NITROGEN 22 MG/DL (7-18); CALCIUM LEVEL 8.1 MG/DL (8.8-10.2); CARBON DIOXIDE LEVEL 20 MEQ/L (21-32); CHLORIDE LEVEL 118 MEQ/L (98-107); CREATININE FOR GFR 0.84 MG/DL (0.55-1.30); GLOMERULAR FILTRATION RATE > 60.0 (>45); GLUCOSE, FASTING 82 MG/DL (70-100); MAGNESIUM LEVEL 1.8 MG/DL (1.8-2.4); PHOSPHORUS LEVEL 1.7 MG/DL (2.5-4.9); POTASSIUM SERUM 4.1 MEQ/L (3.5-5.1); SODIUM LEVEL 142 MEQ/L (136-145)
[2020-06-30] MEDS: ADVAIR HFA 115/21MCG INHALER INH SCH (07:44)
[2020-06-30] MEDS: FERROUS GLUCONATE 324 MG TAB PO SCH (08:00)
[2020-06-30] MEDS: FAMOTIDINE 20 MG TAB PO SCH (08:00)
[2020-06-30] MEDS: NICOTINE 21MG/24HR 1 EA TRANSDERMAL TD SCH (08:00)
[2020-06-30] MEDS: GABAPENTIN 300 MG CAP PO SCH (08:00)
[2020-06-30] MEDS: ESCITALOPRAM OXALATE 10 MG TAB (LEXAPRO) PO SCH (08:00)
--- NOTE | 2020-06-30 08:33 | DS.PDOC ---
Discharge Summary General Date of Admission Jun 27, 2020 at 10:32 Date of Discharge 06/30/2020 Attending Physician: VAISHALI CUMMINGS DO Discharge Summary PROCEDURES PERFORMED DURING STAY: None ADMITTING DIAGNOSES: SUMI/renal failure Hypokalemia Anion gap gap Metabolic acidosis Eaatu-ib-jiwjhte diarrhea Hypertension Bilateral shoulder pain Coronary artery disease, angina Platelet storage disease, delta-granule DISCHARGE DIAGNOSES: Acute renal failure, resolved Metabolic acidosis, resolved Electrolyte disturbance Hypothyroid Platelet storage disease, Delta-granule COMPLICATIONS/CHIEF COMPLAINT: Renal Failure. HISTORY OF PRESENT ILLNESS: Patient is a 62-year-old female past history significant for hypertension, rheumatoid arthritis, hyperlipidemia, COPD, depression and hypothyroid who presented to the emergency department the morning of 06/27/2020 with a chief complaint of nausea and vomiting for 4 weeks duration. Patient states that she began having difficulty keeping down solid foods proximally 4 weeks ago. She states that she reported this to her GI doctor, Dr. Manning who subsequently ordered an MRI. She reports that this MRI does not indicate any acute pathology. Per the patient, a stool sample was also taken that did show some inflammatory markers. She was then scheduled for a upper and lower endoscopy on 07/01/20. Over the last 4 weeks, she is continued to have difficulty with solid foods. This is been in the setting of approximately 8-10 loose stools per day. Over the last 2-3 days, patient reports that she has been having difficulty keeping down liquids secondary to nausea and vomiting. She does report some generalized, nonspecific right lower quadrant abdominal pain with deep palpation. She shares that she has been taking approximately 6 Aleve per day for roughly the last month without any improvement. In the ED, patient was noted to be afebrile, pulse 73, respiratory rate of 18, hypotensive with a blood pressure 94/55 (68). Patient is maintaining an oxygen saturation of 98% with 2 L via nasal cannula. CBC demonstrated a mild leukocytosis of 14.4. H/H of 13.6/39.6. Neutrophil count of 16.3. Chemistry showed a sodium of 131, potassium of 2.7. BUNs/creatinine of 60/5.68 with a GFR of 8.1. Uric acid of 11.7. VBG consistent with a metabolic acidosis pH of 7.1, PCO2 40.5 and a PO2 of 84.1. CT of the patient's chest and abdomen were without any acute findings. Hospitalist team was contacted for admission. Patient will be admitted to the ICU for close monitoring of her electrolytes and rehydration. HOSPITAL COURSE: Patient was admitted to the ICU. Her electrolytes and ABG was followed quite closely. She was started on fluids supplemented with bicarbonate and attempt to improve her acidosis. Potassium and magnesium were repleted as needed. She received multiple normal saline boluses in order to maintain her blood pressure and to restore what was deemed to be a depleted intravascular volume. The following morning, patient's kidney function improved and appeared to be responsive to aggressive fluid hydration. Her acidosis was also improving though, slowly. At this time, as patient did have an extensive infestation of lice. She was put on isolation precautions, started with permethrin shampoo and lice comb. During the hours the patient spent in the emergency department and her time in the ICU, she only had one small loose stool, no episodes of emesis were noted. Given the fact that her acidosis was slow to respond, her fluids were transitioned from D5 half-normal saline with 1 amp of bicarbonate to D5 with 2 amps of bicarbonate. Her diet was progressed. She was found to be hypocalcemic and this was repleted with 1 g IV. Over the coming days, as mentioned above, electrolytes and ABG was monitored closely. At every measurement, her acidosis appeared to be improving, ultimately returning close to baseline. At this point, her IV fluids were transitioned to LR. Patient is discharged home with self-care, she is currently scheduled for outpatient EGD and colonoscopy the morning of 07/01/20. Shows instructed to keep this appointment as it is important to determine etiology of her underlying diarrhea and emesis. Patient was educated on multiple occasions as to how her hypovolemia and her overuse of NSAIDs lately contributed to her acute renal failure. She was encouraged to utilize [id number] Tylenol as needed at home for her pain and discomfort, and to avoid any further nephrotoxic agents. Patient was agreeable to the discharge plan and orders are placed facer operator of 06/30/20. DISCHARGE MEDICATIONS: Please see below. ALLERGIES: Please see below. PHYSICAL EXAMINATION ON DISCHARGE: VITAL SIGNS: Please see below. GENERAL: She is interviewed and examined in her hospital room. Patient is resting comfortably in bed in no acute distress. Patient is alert and oriented, able to answer questions regarding her medical care. HEENT: Cephalic, atraumatic, EOMI, sclera nonicteric, conjunctiva without injection or pallor. Dentures present, his tremors are moist NECK: Appreciable JVD or thyromegaly. CARDIOVASCULAR EXAMINATION: Regular rate and rhythm, normal S1 and S2 without murmur RESPIRATORY EXAMINATION: Good auscultation bilaterally, no wheezes rales or rhonchi ABDOMINAL EXAMINATION: Soft, nontender, nondistended, no organomegaly, guarding, rigidity EXTREMITIES: No lower extremity edema, no calf tenderness bilaterally. Pulses radial and posterior tibial pulses are 2+ bilaterally. SKIN: Overlying skin changes including new or changing rashes or skin lesions. NEUROLOGICAL EXAMINATION: Speech is normal, no dysarthria or dysphasia, alert and oriented 3, cranial nerves III through XII grossly intact. PSYCHIATRIC EXAMINATION: Mood and affect appropriate. LABORATORY DATA: Please see below. IMAGING: Abdomen/pelvis CT (06/27/20): Status post lumbar spine fusion, the gallbladder appendix and uterus are surgically absent. No acute abdominal or pelvic abnormality seen. Chest CT (06/27/20): No active cardio pulmonary disease seen. PROGNOSIS: Fair ACTIVITY: As tolerated DIET: Renal Diet DISPOSITION: Home with self-care ITEMS TO FOLLOWUP ON ON OUTPATIENT: -Please keep your outpatient EGD and Colonoscopy appointment for tomorrow, 07/01/20. -Please do not take NSAIDs, including OTC Ibuprofen, Aleve. Please use Tylenol if needed. -Please follow-up with your PCP this week. It is important that they continue to monitor your kidney function. You may be referred to a technical producer for further monitoring. Please discuss recurrent Lice infection and outpatient treatment. -Please take other medications as prescribed. -If your symptoms return, please present to the ED for further evaluation. -Thank you for allowing us to participate in your care. DISCHARGE CONDITION: Stable TIME SPENT ON DISCHARGE: Greater than 55 minutes. Vital Signs/I&Os Vital Signs Date Time Temp Pulse Resp B/P (MAP) Pulse Ox O2 Delivery O2 Flow Rate FiO2 06/30/20 06:00 98.3 79 18 107/61 (76) 95 Room Air 06/27/20 12:00 2.0 I&O- Last 24 Hours up to 6 AM 06/30/20 06:00 Intake Total 2640 ml Output Total 775 ml Balance 1865 ml Laboratory Data Labs 24H Laboratory Tests 2 06/29/20 15:11: Anion Gap 5L, Glomerular Filtration Rate 53.0, Calcium Level 8.1L, Phosphorus Level 1.9L 06/30/20 06:10: Anion Gap 4L, Glomerular Filtration Rate > 60.0, Calcium Level 8.1L, Phosphorus Level 1.7L, Nucleated Red Blood Cells % (auto) 0.0, Magnesium Level 1.8 CBC/BMP Laboratory Tests 06/29/20 15:11 06/30/20 06:10 Microbiology Microbiology 06/28/20 Campylobacter (PCR), Received Pending 06/28/20 Clostridium difficile Toxin A&B PCR, Received Pending 06/28/20 Plesiomonas shigelloides (PCR), Received Pending 06/28/20 Salmonella (PCR)(IVA), Received Pending 06/28/20 Vibrio Species (PCR), Received Pending 06/28/20 Vibrio Cholerae (PCR), Received Pending 06/28/20 Yersinia enterocolitica (PCR), Received Pending 06/28/20 Enteroaggregative E. coli (PCR), Received Pending 06/28/20 Enteropathogenic E. coli (PCR), Received Pending 06/28/20 Enterotoxigenic E. coli (PCR), Received Pending 06/28/20 E. coli Shiga-like Toxin (PCR), Received Pending 06/28/20 Escherichia coli 0157 (PCR), Received Pending 06/28/20 Enteroinvasive E. coli/Shigella PCR, Received Pending 06/28/20 Cryptosporidium (PCR), Received Pending 06/28/20 Cyclospora cayetanensis (PCR), Received Pending 06/28/20 Entamoeba histolytica (PCR), Received Pending 06/28/20 Giardia lamblia (PCR), Received Pending 06/28/20 Adenovirus Type F 40/41 (PCR), Received Pending 06/28/20 Astrovirus (PCR), Received Pending 06/28/20 Norovirus GI/GII (PCR), Received Pending 06/28/20 Rotavirus A (PCR), Received Pending 06/28/20 Sapovirus I/II/IV/V (PCR), Received Pending 06/28/20 Stool Occult Blood (IVA) - Final, Complete 06/27/20 Blood Culture - Preliminary, Resulted No Growth after 48 hours. All Specime... 06/27/20 Blood Culture - Preliminary, Resulted No Growth after 48 hours. All Specime... Discharge Medications Scheduled Aminocaproic Acid (Aminocaproic Acid) 500 Mg Tablet, 500 MG PO ASDIRECTED take 2000 mg (4 tabs) by mouth 3x a day x 2 days post procedure Ascorbic Acid (Vitamin C) 500 Mg Cap, 500 MG PO DAILY, (Reported) Carvedilol (Carvedilol) 3.125 Mg Tab, 3.125 MG PO BID, (Reported) Cholecalciferol (Vitamin D3) (Vitamin D3) 1,000 Unit Tablet, 1,000 UNITS PO DAILY, (Reported) Clopidogrel Bisulfate (Clopidogrel) 75 Mg Tab, 75 MG PO DAILY, (Reported) Escitalopram Oxalate (Escitalopram Oxalate) 10 Mg Tablet, 10 MG PO DAILY, (Reported) Famotidine (Famotidine) 20 Mg Tablet, 20 MG PO BID, (Reported) Ferrous Gluconate (Ferrous Gluconate) 324 Mg Tablet, 324 MG PO BID, (Reported) Fluticasone Propion/Salmeterol (Advair Hfa 115-21 Mcg Inhaler) 1 Aer Aer, 2 PUFF INH BID, (Reported) Gabapentin (Gabapentin) 300 Mg Cap, 300 MG PO TID, (Reported) Hydroxychloroquine Sulfate (Hydroxychloroquine Sulfate) 200 Mg Tablet, 400 MG PO DAILY, (Reported) Levothyroxine Sodium (Levothyroxine Sodium) 125 Mcg Tablet, 125 MCG PO DAILY, (Reported) Lisinopril (Lisinopril) 20 Mg Tab, 20 MG PO DAILY, (Reported) Permethrin (Nix) 59 Ml Liquid, 1 APLCT TOP ONCE allow to remain on hair for 10 minutes before rinsing off with water Sulfasalazine (Sulfasalazine) 500 Mg Tab, 500 MG PO BID, (Reported) Scheduled PRN Albuterol Sulfate (Ventolin Hfa) 108 Mcg/Act Aer, 2 PUFF INH Q4H PRN for SHORTNESS OF BREATH, (Reported) Ipratropium/Albuterol Sulfate (Iprat-Albut 0.5-3(2.5) mg/3 ml) 1 Katelyn Katelyn, 1 VIAL NEB Q4H PRN for SHORTNESS OF BREATH, (Reported) Methocarbamol (Methocarbamol) 500 Mg Tablet, 500 MG PO QID PRN for MUSCLE SPASMS, (Reported) Nitroglycerin (Nitrostat) 0.4 Mg Subl, 0.4 MG SL PRN PRN for CHEST PAIN, (Reported) Miscellaneous Medications [Med Rec Comment] , (Reported) LIST OBTAINED FROM [facility] AND [facility] VISIT, UNABLE TO VERIFY WITH PT Allergies Coded Allergies: aspirin (Verified Adverse Reaction, Intermediate, VOMITNG, 06/23/20) cafedrine (Verified Adverse Reaction, Intermediate, CAUSED VOMITING, 06/23/20) codeine (Verified Adverse Reaction, Intermediate, VOMITING, 06/23/20) nicergoline (Verified Adverse Reaction, Unknown, Seizure, 06/23/20) GME ATTESTATION GME ATTESTATION My faculty preceptor for this patient encounter was physically present during the encounter and was fully available. All aspects of the patient interview, exa mination, medical decision making process, and medical care plan development were reviewed and approved by the faculty preceptor. The faculty preceptor is aware and concurs with the plan as stated in the body of this note and will attest to such by his/her cosignature. ATTENDING NOTE I, Vaishali Cummings, saw and evaluated the patient. I agree with the finding and the plan of care as documented in the resident note. RORY LOPEZ DO Jun 30, 2020 08:33 VAISHALI CUMMINGS DO Jun 30, 2020 19:23
[2020-06-30] MEDS ORDERED: SODIUM PHOSPHATE INJ 20 MMOL in D5W 250 ML IV ONE (10:00)
[2020-06-30] MEDS ORDERED: NIX1LIQ3 TOP (14:06)
[2020-07-01 14:09] LABS: HISTOPLASMA GAL'MANNAN AG UR <0.5 (<0.5 ng/mL)
== END 2020-06-30 14:25 | disposition home or self-care (01) | DRG 469 ==
LOC: M ED 08:31 → M ED INP 10:32 → ENRESERV 10:55 → M ICU 12:28 → M PCU 06-28 12:46 → M MS5PR 06-29 17:28
PROVIDERS: ADMIT Internal Medicine; ATTEND Internal Medicine
DX: N17.0 Acute kidney failure with tubular necrosis (principal); E87.2 Acidosis; I95.9 Hypotension, unspecified; D69.1 Qualitative platelet defects; E83.42 Hypomagnesemia; E87.6 Hypokalemia; E83.39 Other disorders of phosphorus metabolism; R19.7 Diarrhea, unspecified; E03.9 Hypothyroidism, unspecified; I10 Essential (primary) hypertension; M06.9 Rheumatoid arthritis, unspecified; E78.5 Hyperlipidemia, unspecified; J45.909 Unspecified asthma, uncomplicated; F32.9 Major depressive disorder, single episode, unspecified; Z79.899 Other long term (current) drug therapy; Z88.6 Allergy status to analgesic agent; Z88.5 Allergy status to narcotic agent; Z88.8 Allergy status to other drugs, medicaments and biological substances; I25.10 Atherosclerotic heart disease of native coronary artery without angina pectoris; B85.2 Pediculosis, unspecified

== ENCOUNTER → 2020-07-03 | Outpatient (REF) | payer OTHER ==
[~2020-07-03] MED LIST changes: +D31000TA2 PO; +ESCI10TA2 PO; +FERR325T16 PO; +LEVO125T4 PO; +MED REC COMMENT; +NIX1LIQ3 TOP
[2020-07-03 10:54] LABS: BASO % 0.4 % (0.0-1.0); EOS % 9.6 % (0.0-3.0); HEMATOCRIT 31.2 % (36.0-47.0); HEMOGLOBIN 9.9 g/dl (12.0-15.5); LYMPH # 1.8 10^3/uL (1.5-5.0); MEAN CORPUSCULAR HEMOGLOBIN 32.7 pg (27.0-33.0); MEAN CORPUSCULAR HGB CONC 31.7 g/dl (32.0-36.5); MONO # 1.2 10^3/uL (0.0-0.8); NEUTROPHILS # 6.1 10^3/uL (1.5-8.5); NEUTROPHILS % 59.6 % (36.0-66.0); PLATELET COUNT, AUTOMATED 194 10^3/uL (150-450); RED BLOOD COUNT 3.03 10^6/uL (4.00-5.40); WHITE BLOOD COUNT 10.2 10^3/uL (4.0-10.0)
[2020-07-03 11:15] LABS: BLOOD UREA NITROGEN 9 MG/DL (7-18); CARBON DIOXIDE LEVEL 22 MEQ/L (21-32); CHLORIDE LEVEL 119 MEQ/L (98-107); CREATININE FOR GFR 0.78 MG/DL (0.55-1.30); GLOMERULAR FILTRATION RATE > 60.0 (>45); GLUCOSE, FASTING 72 MG/DL (70-100); POTASSIUM SERUM 4.3 MEQ/L (3.5-5.1); SODIUM LEVEL 145 MEQ/L (136-145)
[2020-07-03 15:22] LABS: VITAMIN B12 LEVEL 1487 PG/ML
== END ==
LOC: M SFHCPLAZ 09:10
PROVIDERS: ATTEND Physician Assistant
DX: D51.0 Vitamin B12 deficiency anemia due to intrinsic factor deficiency (principal); N17.9 Acute kidney failure, unspecified

== ENCOUNTER → 2020-09-22 | Outpatient (CLI) | payer OTHER ==
[~2020-09-22] MED LIST changes: -CYAN500T10 PO; +ESCI10TA16 PO; -ESCI10TA2 PO; +GABA-282 PO; -GABA-843 PO; +HYDR-3490 PO; -HYDR25TAB PO; -LISI-538 PO; -LISI-542 PO; +LISI-898 PO; +LISI20TA33 PO; +METH-1164 PO; -METH1TAB40 PO; +VITA500T37 PO
--- NOTE | 2020-09-22 15:21 | REP ---
INDICATION: PUD W ULCER COMPARISON: None. TECHNIQUE: Real time alex scale and Duplex Doppler evaluation of the bilateral lower extremity arterial vasculature using linear high frequency transducer. FINDINGS: Alex scale and duplex doppler images demonstrate mild diffuse bilateral plaquing. There is no hemodynamically significant stenosis and no evidence of arterial occlusion bilaterally. There are diffuse biphasic and triphasic waveforms bilaterally. The FREYA is 1.05 bilaterally. Peak systolic velocities (cm/sec) Common femoral artery: Right 122; Left 113 Profunda femoris: Right 111; Left 74 SFA (proximal): Right 99; Left 108 SFA (mid): Right 83; Left 110 SFA (distal): Right 84; Left 128 Popliteal artery: Right 76; Left 76 JADON (prox.): Right 89; Left 76 Tibioperoneal trunk: Right 64; Left 117 WADER BOOT TOP ASSEMBLER (prox.): Right 52; Left 80 WADER BOOT TOP ASSEMBLER (distal): Right 79; Left 82 JADON (distal): Right 100; Left 82 IMPRESSION: Mild scattered plaquing bilaterally. No duplex Doppler sonographic evidence of hemodynamically significant stenosis and no evidence of arterial occlusion. <Electronically signed by Camilo Alex > 09/22/20 [id number]
== END ==
LOC: M RAD 13:15
PROVIDERS: ATTEND Podiatrist Foot & Ankle Surgery
DX: I70.249 Atherosclerosis of native arteries of left leg with ulceration of unspecified site (principal)

== ENCOUNTER → 2020-10-02 | Outpatient (CLI) | payer OTHER ==
--- NOTE | 2020-10-02 10:33 | REP ---
INDICATION: CROHN'SNICOTINE DEPEND COMPARISON: 06/27/2020, 02/23/2018 TECHNIQUE: Axial noncontrast images from the thoracic inlet to the upper abdomen using low-dose lung screening technique (LDCT). FINDINGS: The examination now demonstrates an 8.5 mm round noncalcified soft tissue nodule along the periphery of the right lower lobe (series 201, image 68) which appears to be more prominent than prior examinations. Remainder of lung gregorio are clear. No further consolidation, suspicious nodule or mass lesion appreciated. No pleural effusion. No pneumothorax. Tracheobronchial tree is patent. IMPRESSION: 8.5 mm subpleural noncalcified nodule along the lateral aspect of the right lower lobe. Finding appears slightly more prominent than prior examinations. Given its slow changes this likely represents a chronic progressive granuloma. However short-term 3-6 month follow-up or PET-CT may be warranted for further investigation. <Electronically signed by Gideon Boo > 10/02/20 [id number]
== END ==
LOC: M RAD 09:25
PROVIDERS: ATTEND Physician Assistant
DX: Z12.2 Encounter for screening for malignant neoplasm of respiratory organs (principal); F17.210 Nicotine dependence, cigarettes, uncomplicated

== ENCOUNTER → 2021-01-15 | Outpatient (REF) | payer OTHER ==
[~2021-01-15] MED LIST changes: +FERR324T21 PO; -FERR325T16 PO; +OMEP40CA4 PO; -OMEP40CA97 PO
[2021-01-15 10:41] LABS: HEMATOCRIT 41.9 % (36.0-47.0); HEMOGLOBIN 13.9 g/dl (12.0-15.5); MEAN CORPUSCULAR HEMOGLOBIN 34.1 pg (27.0-33.0); MEAN CORPUSCULAR HGB CONC 33.2 g/dl (32.0-36.5); MEAN CORPUSCULAR VOLUME 102.7 fl (80.0-96.0); PLATELET COUNT, AUTOMATED 236 10^3/uL (150-450); RED BLOOD COUNT 4.08 10^6/uL (4.00-5.40); WHITE BLOOD COUNT 11.4 10^3/uL (4.0-10.0)
[2021-01-15 10:58] LABS: INR 0.97; PROTHROMBIN TIME 13.1 SECONDS (12.5-14.3)
[2021-01-15 11:39] LABS: ALBUMIN 3.5 GM/DL (3.2-5.2); ALT/SGPT 17 U/L (12-78); BILIRUBIN,TOTAL 0.5 MG/DL (0.2-1.0); BLOOD UREA NITROGEN 11 MG/DL (7-18); CALCIUM LEVEL 8.9 MG/DL (8.8-10.2); CARBON DIOXIDE LEVEL 23 MEQ/L (21-32); CHLORIDE LEVEL 110 MEQ/L (98-107); CREATININE FOR GFR 0.82 MG/DL (0.55-1.30); FREE T4 0.78 NG/DL (0.76-1.46); GLOMERULAR FILTRATION RATE > 60.0 (>45); GLUCOSE, FASTING 86 MG/DL (70-100); SODIUM LEVEL 140 MEQ/L (136-145); TOTAL PROTEIN 6.3 GM/DL (6.4-8.2)
== END ==
LOC: M SFHCPLAZ 08:47
PROVIDERS: ATTEND Physician Assistant
DX: M06.9 Rheumatoid arthritis, unspecified (principal); E03.9 Hypothyroidism, unspecified; Z79.01 Long term (current) use of anticoagulants

== ENCOUNTER 2021-01-28 17:03 | Emergency (ER) | payer OTHER ==
[~2021-01-28] VITALS: Ht 149.9 cm; Wt 60.5 kg
[~2021-01-28 17:03] MED LIST changes: -LISI-898 PO; +LISI5TAB11 PO
[2021-01-28] MEDS ORDERED: sulfaSALAzine 500 MG TABEC PO STA (21:09)
[2021-01-28 23:23] VITALS: BP 119/62
== END 2021-01-28 23:42 | disposition home or self-care (01) ==
LOC: M ED 17:03
DX: M79.672 Pain in left foot (principal); R22.42 Localized swelling, mass and lump, left lower limb; M89.8X7 Other specified disorders of bone, ankle and foot; M77.32 Calcaneal spur, left foot; M85.872 Other specified disorders of bone density and structure, left ankle and foot; I48.91 Unspecified atrial fibrillation; I25.10 Atherosclerotic heart disease of native coronary artery without angina pectoris; I25.2 Old myocardial infarction; I10 Essential (primary) hypertension; E78.5 Hyperlipidemia, unspecified; J44.9 Chronic obstructive pulmonary disease, unspecified; R91.1 Solitary pulmonary nodule; M06.9 Rheumatoid arthritis, unspecified; Z85.820 Personal history of malignant melanoma of skin; Z86.711 Personal history of pulmonary embolism; F17.200 Nicotine dependence, unspecified, uncomplicated; Z79.899 Other long term (current) drug therapy; Z88.8 Allergy status to other drugs, medicaments and biological substances; Z88.5 Allergy status to narcotic agent

== ENCOUNTER 2021-03-16 23:27 | Emergency (ER) | payer OTHER ==
[~2021-03-16] VITALS: Ht 157.5 cm; Wt 63.3 kg
[~2021-03-16 23:27] MED LIST changes: +LISI-898 PO; -LISI5TAB11 PO
[2021-03-17] MEDS ORDERED: NS 1,000 ML IV ONE (00:25)
--- NOTE | 2021-03-17 00:25 | REPVR ---
PROCEDURE INFORMATION: Exam: CT Head Without Contrast Exam date and time: 03/16/2021 11:34 PM Age: 65 years old Clinical indication: Injury or trauma; Fall; Blunt trauma (contusions or hematomas); Consciousness not specified TECHNIQUE: Imaging protocol: Computed tomography of the head without contrast. Radiation optimization: All CT scans at this facility use at least one of these dose optimization techniques: automated exposure control; mA and/or kV adjustment per patient size (includes targeted exams where dose is matched to clinical indication); or iterative reconstruction. COMPARISON: CT Head without contrast 12/22/2017 3:56 PM FINDINGS: Images through the base of the brain and posterior fossa, including the brainstem are slightly degraded by beam hardening artifacts from the adjacent calvarium. There is no evidence of acute intracranial hemorrhage, extra axial fluid collection or hematoma. There is global parenchymal volume loss which has slightly progressed from the prior study. There is slight prominence of the ventricles, however commensurate with degree of parenchymal volume loss. There is no midline shift or herniation. The ventricles are not dilated. No evidence of pneumocephalus. There is intracranial atherosclerosis. Mild scattered areas of focal white matter hypoattenuation again noted consistent with microvascular ischemic changes which have slightly progressed from the prior exam. No CT findings are seen at the current time to suggest changes of acute territorial vascular infarction. Note is made however, that CT changes, may lag clinical findings in acute CVA. If clinically indicated, consideration could be given to MRI with diffusion weighted imaging, due to its greater sensitivity, for early detection of acute ischemic change. Incidental intracranial calcifications are noted. No pericranial scalp hematoma is seen. No acute cranial vault fracture is seen. No fluid is seen within the visualized paranasal sinuses or mastoid air cells. The visualized middle ear cavities are not opacified. IMPRESSION: No evidence of an acute intracranial injury. No evidence of acute territorial major vessel infarct, mass effect, or hemorrhage. Parenchymal volume loss and white matter changes have slightly progressed compared to the prior exam. Findings discussed above in detail. Electronically signed by: Gio Odell On 03/17/2021 00:25:18 AM
--- NOTE | 2021-03-17 00:41 | REPVR ---
PROCEDURE INFORMATION: Exam: CT Cervical Spine Without Contrast Exam date and time: 03/16/2021 11:34 PM Age: 65 years old Clinical indication: Injury or trauma; Fall; Blunt trauma TECHNIQUE: Imaging protocol: Computed tomography images of the cervical spine without contrast. Radiation optimization: All CT scans at this facility use at least one of these dose optimization techniques: automated exposure control; mA and/or kV adjustment per patient size (includes targeted exams where dose is matched to clinical indication); or iterative reconstruction. COMPARISON: CT Spine,cervical w/o contrast 06/25/2019 10:09 AM FINDINGS: There is slight forward flexion of the neck with extension of the head. There is leftward convex curvature of the spine similar to the prior exam, most likely secondary to scoliosis. The patient is status post anterior fusion from C5-C7 with a metallic plate, vertebral body screws and intervertebral bone graft. No evidence of hardware failure or loosening is seen. Bone graft appears to be fully incorporated. Cervical vertebral body heights, posterior cervical alignment and prevertebral soft tissues are within normal limits. The facet joints are not subluxed or dislocated. The atlantodental interval is maintained. No acute fracture of the cervical spine is seen. Degenerative changes are noted, with findings most pronounced at the C4/C5 level with there is large broad-based posterior disc displacement slightly greater paracentral towards the right and ligamentum flavum hypertrophy, findings which appear to be compromising the central canal, thecal sac and cord. This may be slightly worse than on the prior study. Prominent posterior bony ridging and left uncovertebral hypertrophy at the C5/C6 level is again noted. Mild biapical pleural thickening and parenchymal scarring is noted. Indeterminate noncalcified 5.1 mm posterior left apical subpleural pulmonary nodule (image 87, series 302) is slightly larger than on the prior study (2.9 mm, image 90, series 202). Clinical correlation with risk factors is advised. If the patient does not have a history of malignancy, consider follow-up formal chest CT in 6-12 months. Carotid vascular calcifications noted. IMPRESSION: No acute fracture or malalignment of the cervical spine. Degenerative changes appear to have slightly progressed from the prior study with suspected spinal canal and atleast mild appearing cord compromise at the C4/5 level as discussed above. Indeterminate enlarging pulmonary nodule. Clinical correlation and nonemergent recommendations discussed above. Other findings discussed above. Electronically signed by: Gio Castaneda 03/17/2021 00:40:19 AM
--- NOTE | 2021-03-17 01:32 | REPVR ---
PROCEDURE INFORMATION: Exam: XR Chest Exam date and time: 03/17/2021 12:32 AM Age: 65 years old Clinical indication: Other: Syncope; Additional info: Syncope/near-syncope TECHNIQUE: Imaging protocol: XR of the chest. Views: 1 view. COMPARISON: Chest x-ray March 22, 2019. Prior report has not been made available for review at the time of this emergent interpretation, however was requested. FINDINGS: LUNGS and PLEURAL SPACE: The lungs are symmetrically expanded. Lung volumes are slightly pronounced. Mildly coarsened reticular lung markings again noted. Mild retrocardiac atelectasis/scarring seen at the left lung base. No evidence of peribronchial thickening. There is no consolidation, pneumothorax, or pleural effusion. No evidence of pulmonary vascular redistribution or overt edema. MEDIASTINUM: There is no mediastinal shift or widening. CARDIAC SILHOUETTE: Cardiothoracic ratio is within normal limits for portable technique. Aortic atherosclerosis. BONY THORAX: There is scoliosis. Incompletely imaged cervical spine postoperative changes noted. Bilateral shoulder replacements noted, incompletely assessed, the left is new compared to the prior exam. IMPRESSION: No acute infiltrate. Other findings discussed above. Electronically signed by: Gio Odell On 03/17/2021 01:31:34 AM
[2021-03-17 01:34] LABS: BASO # 0.1 10^3/uL (0.0-0.2); BASO % 0.6 % (0.0-1.0); EOS # 0.1 10^3/uL (0.0-0.5); EOS % 1.7 % (0.0-3.0); HEMATOCRIT 32.3 % (36.0-47.0); HEMOGLOBIN 10.9 g/dl (12.0-15.5); LYMPH # 1.8 10^3/uL (1.5-5.0); LYMPH % 21.6 % (24.0-44.0); MEAN CORPUSCULAR HEMOGLOBIN 36.3 pg (27.0-33.0); MEAN CORPUSCULAR HGB CONC 33.7 g/dl (32.0-36.5); MEAN CORPUSCULAR VOLUME 107.7 fl (80.0-96.0); MONO # 0.8 10^3/uL (0.0-0.8); MONO % 9.8 % (2.0-8.0); NEUTROPHILS # 5.5 10^3/uL (1.5-8.5); NEUTROPHILS % 65.8 % (36.0-66.0); PLATELET COUNT, AUTOMATED 166 10^3/uL (150-450); WHITE BLOOD COUNT 8.3 10^3/uL (4.0-10.0)
[2021-03-17 02:10] LABS: BLOOD UREA NITROGEN 9 MG/DL (7-18); CALCIUM LEVEL 7.8 MG/DL (8.8-10.2); CARBON DIOXIDE LEVEL 23 MEQ/L (21-32); CHLORIDE LEVEL 114 MEQ/L (98-107); CK-MB VALUE MASS < 1.0 NG/ML (<3.6); CPK CREATINE PHOSPHOKINASE 31 U/L (26-192); CREATININE FOR GFR 0.66 MG/DL (0.55-1.30); GLOMERULAR FILTRATION RATE > 60.0 (>45); GLUCOSE, FASTING 97 MG/DL (70-100); MB/CK RELATIVE INDEX 3.23 (< OR =4); SODIUM LEVEL 141 MEQ/L (136-145); TROPONIN I < 0.02 NG/ML (< 0.10)
[2021-03-17] MEDS ORDERED: DERMABOND TOPICAL SKIN ADHESIVE TOP ONE (02:45)
[2021-03-17 06:31] VITALS: BP 146/59
--- NOTE | 2021-03-17 20:12 | ECGEPIP ---
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
== END 2021-03-17 07:19 | disposition home or self-care (01) ==
LOC: M ED 23:27
DX: I95.1 Orthostatic hypotension (principal); S01.81XA Laceration without foreign body of other part of head, initial encounter; X58.XXXA Exposure to other specified factors, initial encounter; Y92.9 Unspecified place or not applicable; Y93.9 Activity, unspecified; Y99.9 Unspecified external cause status; R91.1 Solitary pulmonary nodule; E11.9 Type 2 diabetes mellitus without complications; I10 Essential (primary) hypertension; E03.9 Hypothyroidism, unspecified; K50.919 Crohn's disease, unspecified, with unspecified complications; F17.200 Nicotine dependence, unspecified, uncomplicated; Z79.899 Other long term (current) drug therapy; Z88.8 Allergy status to other drugs, medicaments and biological substances; Z88.5 Allergy status to narcotic agent

== ENCOUNTER → 2021-03-26 | Outpatient (CLI) | payer OTHER ==
[2021-03-26 13:36] LABS: BASO # 0.1 10^3/uL (0.0-0.2); BASO % 0.4 % (0.0-1.0); EOS # 0.2 10^3/uL (0.0-0.5); HEMATOCRIT 42.3 % (36.0-47.0); HEMOGLOBIN 14.2 g/dl (12.0-15.5); LYMPH # 2.5 10^3/uL (1.5-5.0); LYMPH % 20.7 % (24.0-44.0); MEAN CORPUSCULAR HEMOGLOBIN 36.1 pg (27.0-33.0); MEAN CORPUSCULAR HGB CONC 33.6 g/dl (32.0-36.5); MEAN CORPUSCULAR VOLUME 107.6 fl (80.0-96.0); MONO # 1.2 10^3/uL (0.0-0.8); MONO % 9.9 % (2.0-8.0); NEUTROPHILS # 8.2 10^3/uL (1.5-8.5); NEUTROPHILS % 66.6 % (36.0-66.0); PLATELET COUNT, AUTOMATED 306 10^3/uL (150-450); RED BLOOD COUNT 3.93 10^6/uL (4.00-5.40); WHITE BLOOD COUNT 12.3 10^3/uL (4.0-10.0)
[2021-03-26 14:05] LABS: ALBUMIN 3.3 GM/DL (3.2-5.2); ALT/SGPT 11 U/L (12-78); BILIRUBIN,TOTAL 0.3 MG/DL (0.2-1.0); BLOOD UREA NITROGEN 6 MG/DL (7-18); CALCIUM LEVEL 9.5 MG/DL (8.8-10.2); CARBON DIOXIDE LEVEL 24 MEQ/L (21-32); CHLORIDE LEVEL 110 MEQ/L (98-107); CREATININE FOR GFR 0.63 MG/DL (0.55-1.30); FERRITIN 665 NG/ML (8-252); GLOMERULAR FILTRATION RATE > 60.0 (>45); GLUCOSE, FASTING 99 MG/DL (70-100); IRON (FE) 76 UG/DL (50-170); PERCENT SATURATION 39.8 % (13.2-45.0); SODIUM LEVEL 140 MEQ/L (136-145); TOTAL IRON BINDING CAPACITY 191 UG/DL (250-450); TOTAL PROTEIN 6.5 GM/DL (6.4-8.2)
[2021-03-26 14:07] LABS: FOLATE 20.5 NG/ML; VITAMIN B12 LEVEL 972 PG/ML
== END ==
LOC: M PLALAB 09:49
PROVIDERS: ATTEND Physician Assistant
DX: D51.0 Vitamin B12 deficiency anemia due to intrinsic factor deficiency (principal)

== ENCOUNTER 2021-04-09 07:10 | Emergency (ER) | payer OTHER ==
[~2021-04-09] VITALS: Ht 149.9 cm; Wt 55.2 kg
[2021-04-09] MEDS ORDERED: NS 1,000 ML IV ONE (08:55)
[2021-04-09 09:40] LABS: APPEARANCE, URINE MANUAL HAZY (CLEAR); COLOR, URINE MANUAL YELLOW (YELLOW)
[2021-04-09 09:41] LABS: BILIRUBIN, URINE MANUAL NEGATIVE (NEGATIVE); BLOOD URINE MANUAL NEGATIVE (NEGATIVE); GLUCOSE, URINE (UA) MANUAL NEGATIVE (NEGATIVE); KETONE, URINE MANUAL NEGATIVE (NEGATIVE); LEUKOCYTE ESTERASE, URINE MAN POSITIVE (NEGATIVE); NITRITE, URINE MANUAL NEGATIVE (NEGATIVE); PROTEIN, URINE MANUAL TRACE mg/dL (NEGATIVE); SPECIFIC GRAVITY,URINE MANUAL 1.025 (1.002-1.035); UROBILINOGEN, URINE MANUAL NORMAL (NORMAL)
[2021-04-09 09:48] LABS: BACTERIA, URINE MOD AMOUNT; CALCIUM OXALATE CRYSTALS,URINE SMALL AMOUNT /hpf; HYALINE CAST, URINE 0-1 /lpf (0-1); RBC, URINE NONE SEEN /hpf (0-3); SQUAMOUS EPITHELIAL CELL URINE MOD AMOUNT /hpf (SMALL AMT)
[2021-04-09 09:59] LABS: BASO % 0.3 % (0.0-1.0); EOS # 0.1 10^3/uL (0.0-0.5); EOS % 0.7 % (0.0-3.0); HEMATOCRIT 44.8 % (36.0-47.0); HEMOGLOBIN 15.3 g/dl (12.0-15.5); LYMPH % 15.6 % (24.0-44.0); MEAN CORPUSCULAR HEMOGLOBIN 34.9 pg (27.0-33.0); MEAN CORPUSCULAR HGB CONC 34.2 g/dl (32.0-36.5); MEAN CORPUSCULAR VOLUME 102.3 fl (80.0-96.0); MONO # 1.4 10^3/uL (0.0-0.8); MONO % 10.3 % (2.0-8.0); NEUTROPHILS # 9.5 10^3/uL (1.5-8.5); NEUTROPHILS % 72.7 % (36.0-66.0); PLATELET COUNT, AUTOMATED 265 10^3/uL (150-450); RED BLOOD COUNT 4.38 10^6/uL (4.00-5.40); WHITE BLOOD COUNT 13.1 10^3/uL (4.0-10.0)
[2021-04-09 11:13] LABS: ALBUMIN 3.2 GM/DL (3.2-5.2); ALT/SGPT 8 U/L (12-78); AMYLASE 15 U/L (25-115); BILIRUBIN,DIRECT < 0.1 MG/DL (0.0-0.2); BILIRUBIN,TOTAL 0.4 MG/DL (0.2-1.0); BLOOD UREA NITROGEN 11 MG/DL (7-18); CALCIUM LEVEL 9.3 MG/DL (8.8-10.2); CARBON DIOXIDE LEVEL 23 MEQ/L (21-32); CHLORIDE LEVEL 103 MEQ/L (98-107); CREATININE FOR GFR 0.75 MG/DL (0.55-1.30); GLOMERULAR FILTRATION RATE > 60.0 (>45); GLUCOSE, FASTING 90 MG/DL (70-100); LIPASE 134 U/L (73-393); POTASSIUM SERUM 4.1 MEQ/L (3.5-5.1); SODIUM LEVEL 138 MEQ/L (136-145); TOTAL PROTEIN 6.2 GM/DL (6.4-8.2)
[2021-04-09] MEDS ORDERED: ISOVUE-370 76% 100ML VIAL As Ordered ONE (11:53)
--- NOTE | 2021-04-09 12:50 | REP ---
INDICATION: abd pain, weight loss, diarrhea COMPARISON: 06/27/2020 and 06/25/2019. TECHNIQUE: CT Scan of the abdomen and pelvis was performed with intravenous administration of 100 cc of Isovue 370, without oral contrast. Sagittal and coronal reconstruction images are performed. FINDINGS: Lung bases: Unremarkable. Liver: Normal Gallbladder: Prior cholecystectomy. Prominent caliber of the common bile duct and pancreatic duct is unchanged compared to the prior studies. Spleen: Normal. Adrenals: Normal. Pancreas: Normal. Kidneys: Normal. Small and large bowel: Unremarkable. There is no free air or obstruction. Free fluid: None. Abdominal aorta: No aneurysm or dissection. Adenopathy: None. Appendix: Prior appendectomy. Osseous structures: There is evidence of prior fusion surgery of the lumbar spine, with diffuse degenerative changes and no compression fracture.. Pelvis: No mass. Prior hysterectomy. IMPRESSION: No acute findings. <Electronically signed by Camilo Alex > 04/09/21 [id number]
[2021-04-09 14:07] LABS: FREE T4 0.86 NG/DL (0.76-1.46)
[2021-04-09] MEDS ORDERED: PROM12.56 PO (15:04)
[2021-04-09] MEDS ORDERED: LOPE-39 PO (15:04)
[2021-04-09 15:22] VITALS: BP 150/68
== END 2021-04-09 15:23 | disposition home or self-care (01) ==
LOC: M ED 07:10
DX: R94.6 Abnormal results of thyroid function studies (principal); R11.2 Nausea with vomiting, unspecified; R19.7 Diarrhea, unspecified; K21.9 Gastro-esophageal reflux disease without esophagitis; I10 Essential (primary) hypertension; I25.10 Atherosclerotic heart disease of native coronary artery without angina pectoris; F17.200 Nicotine dependence, unspecified, uncomplicated; Z79.899 Other long term (current) drug therapy; Z88.8 Allergy status to other drugs, medicaments and biological substances; Z88.5 Allergy status to narcotic agent
CPT/HCPCS: 36415; 74177; 80048; 80076; 81000; 82150; 83605; 83690; 84439; 84443; 85025; 87505; 96360; 96361; 99284; Q9967

== ENCOUNTER → 2021-10-05 | Outpatient (CLI) | payer OTHER ==
[~2021-10-05] MED LIST changes: -D31000TA2 PO; -LISI-898 PO; +LISI5TAB11 PO; +LOPE-39 PO; +PROM12.56 PO; +VITA100093 PO
== END ==
LOC: M PLARAD 11:36
PROVIDERS: ATTEND Physician Assistant Medical
DX: R91.1 Solitary pulmonary nodule (principal)
CPT/HCPCS: 78815; A9552

== ENCOUNTER → 2021-10-19 | Outpatient (CLI) | payer OTHER ==
[2021-10-19 10:31] LABS: BASO % 0.4 % (0.0-1.0); EOS # 0.8 10^3/uL (0.0-0.5); EOS % 7.1 % (0.0-3.0); HEMATOCRIT 34.6 % (36.0-47.0); HEMOGLOBIN 11.1 g/dl (12.0-15.5); LYMPH # 1.8 10^3/uL (1.5-5.0); LYMPH % 16.7 % (24.0-44.0); MEAN CORPUSCULAR HGB CONC 32.1 g/dl (32.0-36.5); MONO # 1.2 10^3/uL (0.0-0.8); MONO % 11.4 % (2.0-8.0); NEUTROPHILS # 6.9 10^3/uL (1.5-8.5); NEUTROPHILS % 64.1 % (36.0-66.0); PLATELET COUNT, AUTOMATED 249 10^3/uL (150-450); RED BLOOD COUNT 3.36 10^6/uL (4.00-5.40); WHITE BLOOD COUNT 10.8 10^3/uL (4.0-10.0)
[2021-10-19 11:03] LABS: FERRITIN 306 NG/ML (8-252); IRON (FE) 43 UG/DL (50-170)
[2021-10-19 11:07] LABS: VITAMIN B12 LEVEL 497 PG/ML (247-911)
[2021-10-19 17:15] LABS: HEMOGLOBIN A1c 4.7 %
== END ==
LOC: M PLAIMG 08:38
PROVIDERS: ATTEND Physician Assistant Medical
DX: D50.9 Iron deficiency anemia, unspecified (principal); E13.9 Other specified diabetes mellitus without complications; E53.8 Deficiency of other specified B group vitamins; M25.532 Pain in left wrist; M24.632 Ankylosis, left wrist

== ENCOUNTER 2022-05-24 13:47 | Emergency (ER) | payer OTHER ==
[~2022-05-24] VITALS: Ht 149.9 cm; Wt 65.9 kg
[~2022-05-24 13:47] MED LIST changes: +KETO10TAB PO
[2022-05-24 16:32] LABS: RSV AMPLIFICATION NEGATIVE (NEGATIVE)
[2022-05-24 16:36] LABS: BASO # 0.1 10^3/uL (0.0-0.2); BASO % 0.5 % (0.0-1.0); EOS # 1.4 10^3/uL (0.0-0.5); EOS % 7.8 % (0.0-3.0); LYMPH # 1.6 10^3/uL (1.5-5.0); LYMPH % 8.9 % (24.0-44.0); MEAN CORPUSCULAR HEMOGLOBIN 33.8 pg (27.0-33.0); MEAN CORPUSCULAR HGB CONC 33.3 g/dl (32.0-36.5); MEAN CORPUSCULAR VOLUME 101.4 fl (80.0-96.0); MONO # 1.2 10^3/uL (0.0-0.8); MONO % 7.1 % (2.0-8.0); NEUTROPHILS # 13.2 10^3/uL (1.5-8.5); PLATELET COUNT, AUTOMATED 445 10^3/uL (150-450); RED BLOOD COUNT 2.96 10^6/uL (4.00-5.40); WHITE BLOOD COUNT 17.6 10^3/uL (4.0-10.0)
[2022-05-24 16:47] LABS: ALBUMIN 2.7 GM/DL (3.2-5.2); ALT/SGPT 6 U/L (12-78); BILIRUBIN,DIRECT < 0.1 MG/DL (0.0-0.2); BILIRUBIN,TOTAL 0.6 MG/DL (0.2-1.0); BLOOD UREA NITROGEN 12 MG/DL (7-18); CALCIUM LEVEL 8.8 MG/DL (8.8-10.2); CARBON DIOXIDE LEVEL 25 MEQ/L (21-32); CHLORIDE LEVEL 104 MEQ/L (98-107); CREATININE FOR GFR 0.76 MG/DL (0.55-1.30); FREE T4 0.66 NG/DL (0.76-1.46); GLOMERULAR FILTRATION RATE > 60.0 (>45); GLUCOSE, FASTING 99 MG/DL (70-100); LIPASE 144 U/L (73-393); POTASSIUM SERUM 3.7 MEQ/L (3.5-5.1); SODIUM LEVEL 135 MEQ/L (136-145); TOTAL PROTEIN 5.8 GM/DL (6.4-8.2)
[2022-05-24] MEDS ORDERED: ISOVUE-370 76% 100ML VIAL As Ordered ONE (17:11)
[2022-05-24] MEDS ORDERED: GABAPENTIN 300 MG CAP PO ONE (17:35)
[2022-05-24 18:18] VITALS: BP 161/70
[2022-05-24] MEDS ORDERED: PANTOPRAZOLE 40MG TAB (PROTONIX) PO ONE (18:35)
[2022-05-24] MEDS ORDERED: GI COCKTAIL 50ML BTL(HYOSCYAMINE/MAALOX/LIDOCAINE VISCOUS)(1:3:1) PO ONE (18:35)
[2022-05-24] MEDS ORDERED: PROT1TAB2 PO (18:44)
== END 2022-05-24 19:59 | disposition home or self-care (01) ==
LOC: EDBD 13:47 → M ED 13:47
DX: G89.4 Chronic pain syndrome (principal); K26.9 Duodenal ulcer, unspecified as acute or chronic, without hemorrhage or perforation; B85.0 Pediculosis due to Pediculus humanus capitis; K29.80 Duodenitis without bleeding; R53.1 Weakness; E11.9 Type 2 diabetes mellitus without complications; I10 Essential (primary) hypertension; E78.5 Hyperlipidemia, unspecified; J44.9 Chronic obstructive pulmonary disease, unspecified; Z90.49 Acquired absence of other specified parts of digestive tract; M79.7 Fibromyalgia; Z88.6 Allergy status to analgesic agent; Z88.8 Allergy status to other drugs, medicaments and biological substances; Z88.5 Allergy status to narcotic agent; Z79.899 Other long term (current) drug therapy; Z79.890 Hormone replacement therapy; Z79.51 Long term (current) use of inhaled steroids
CPT/HCPCS: 36415; 74177; 80048; 80076; 83690; 84439; 84443; 85025; 87631; 93041; 94760; 99284; Q9967

== ENCOUNTER 2022-11-07 11:32 | Inpatient (IN) | payer MEDICARE, OTHER ==
[~2022-11-07] VITALS: Ht 149.9 cm; Wt 63.9 kg
[~2022-11-07 11:32] MED LIST changes: -HYDR200T3 PO; +HYDR200T46 PO; +PROT1TAB2 PO
[2022-11-07 12:27] LABS: HEMATOCRIT 32.5 % (36.0-47.0); HEMOGLOBIN 11.1 g/dl (12.0-15.5); MEAN CORPUSCULAR HEMOGLOBIN 33.5 pg (27.0-33.0); MEAN CORPUSCULAR HGB CONC 34.2 g/dl (32.0-36.5); MEAN CORPUSCULAR VOLUME 98.2 fl (80.0-96.0); PLATELET COUNT, AUTOMATED 371 10^3/uL (150-450); RED BLOOD COUNT 3.31 10^6/uL (4.00-5.40); WHITE BLOOD COUNT 19.5 10^3/uL (4.0-10.0)
[2022-11-07 12:37] LABS: INR 0.97; PROTHROMBIN TIME 13.1 SECONDS (12.5-14.5)
[2022-11-07] MEDS ORDERED: NS 1,000 ML IV ONE (12:40)
[2022-11-07] MEDS ORDERED: ONDANSETRON 4MG 2ML VIAL IV ONE (12:40)
[2022-11-07] MEDS ORDERED: PANTOPRAZOLE 40MG VIAL IV ONE ×3 (12:40→14:00)
[2022-11-07] MEDS ORDERED: ISOVUE-370 76% 100ML VIAL As Ordered ONE (12:41)
[2022-11-07 12:42] LABS: ATYPICAL LYMPH 2 % (0-5); EOSINOPHILS 1 % (0-3); LYMPHOCYTES 13 % (16-44); MONOCYTES 6 % (0-5); NEUTROPHILS 78 % (28-66)
[2022-11-07 12:44] LABS: PLATELET ESTIMATE NORMAL (NORMAL)
[2022-11-07] MEDS ORDERED: MORPHINE 2 MG/ML 1ML VIAL IV ONE ×2 (12:45→14:00)
[2022-11-07 12:48] LABS: LIPASE 35 U/L (12-53)
[2022-11-07 12:51] LABS: ALBUMIN 3.5 G/DL (3.2-5.2); ALKALINE PHOSPHATASE 112 U/L (46-116); ALT/SGPT 9 U/L (7.0-40); AST/SGOT 35 U/L (<34); BILIRUBIN,DIRECT 0.1 MG/DL (<0.4); BILIRUBIN,TOTAL 0.3 MG/DL (0.3-1.2); BLOOD UREA NITROGEN 25 MG/DL (9-23); CARBON DIOXIDE LEVEL 22 MMOL/L (20-31); CHLORIDE LEVEL 106 MMOL/L (98-107); CK-MB VALUE MASS 1.6 NG/ML (<3.6); CREATININE FOR GFR 0.73 MG/DL (0.55-1.30); GLOMERULAR FILTRATION RATE > 60.0 (>45); GLUCOSE, FASTING 103 MG/DL (74-106); SODIUM LEVEL 136 MMOL/L (136-145); TOTAL PROTEIN 6.8 G/DL (5.7-8.2)
[2022-11-07 12:52] LABS: CPK CREATINE PHOSPHOKINASE 127 U/L (34-145); MB/CK RELATIVE INDEX 1.25 (< OR =4)
[2022-11-07] MEDS ORDERED: PROM12.56 PO (13:23)
[2022-11-07] MEDS ORDERED: PANT40TA29 PO (13:23)
[2022-11-07] MEDS ORDERED: LEXA1TAB PO (13:23)
[2022-11-07] MEDS ORDERED: CARV3.12 PO (13:23)
[2022-11-07] MEDS ORDERED: ALEN70TA82 PO (13:23)
[2022-11-07] MEDS ORDERED: LEVO175T2 PO (13:23)
[2022-11-07] MEDS ORDERED: VITMTA PO (13:32)
[2022-11-07] MEDS ORDERED: IPRATROPIUM 0.5MG/ALBUTEROL 2.5MG INH SOL UD 3ML (DUONEB) NEB PRN (13:45)
[2022-11-07] MEDS ORDERED: methocarbamoL 750 MG TAB PO PRN (13:45)
[2022-11-07] MEDS ORDERED: ALBUTEROL 90 MCG/ACT 8GM HFA INHALER INH PRN (13:45)
[2022-11-07] MEDS ORDERED: NITROGLYCERIN 0.4MG SUBL TABLET SL PRN (13:45)
[2022-11-07 13:54] LABS: RSV AMPLIFICATION NEGATIVE (NEGATIVE)
[2022-11-07] MEDS ORDERED: ONDANSETRON 4MG 2ML VIAL IV PRN (13:55)
[2022-11-07] MEDS ORDERED: SUCRALFATE SUSP 1GM/10ML UD PO ONE (14:00)
[2022-11-07] MEDS ORDERED: HOME MED LIST COMPLETE! XX SCH (14:00)
[2022-11-07] MEDS ORDERED: MORPHINE 4 MG/ML 1ML VIAL IV PRN (15:10)
[2022-11-07] MEDS: GABAPENTIN 300 MG CAP PO SCH ×2 (15:15→20:35)
[2022-11-07 15:16] LABS: ALBUMIN 3.2 G/DL (3.2-5.2); ALKALINE PHOSPHATASE 105 U/L (46-116); ALT/SGPT 10 U/L (7.0-40); AST/SGOT 40 U/L (<34); BILIRUBIN,TOTAL 0.2 MG/DL (0.3-1.2); BLOOD UREA NITROGEN 22 MG/DL (9-23); CALCIUM LEVEL 8.2 MG/DL (8.3-10.6); CARBON DIOXIDE LEVEL 19 MMOL/L (20-31); CHLORIDE LEVEL 106 MMOL/L (98-107); CREATININE FOR GFR 0.68 MG/DL (0.55-1.30); GLOMERULAR FILTRATION RATE > 60.0 (>45); GLUCOSE, FASTING 99 MG/DL (74-106); POTASSIUM SERUM 4.6 MMOL/L (3.5-5.1); SODIUM LEVEL 134 MMOL/L (136-145); TOTAL PROTEIN 6.5 G/DL (5.7-8.2)
[2022-11-07 15:18] LABS: THYROID STIMULATING HORMONE 43.531 uIU/ML (0.55-4.78)
[2022-11-07 15:34] LABS: CA19-9 TUMOR MARKER,CARBOHYDRA 29.4 U/ML (<35.0)
[2022-11-07] MEDS: SUCRALFATE SUSP 1GM/10ML UD PO SCH ×2 (17:01→20:35)
[2022-11-07 17:36] LABS: COLLAGEN ADP 185 SECONDS (56-103); COLLAGEN EPINEPHRINE > 300 SECONDS (74-162)
[2022-11-07 18:30] VITALS: BP 113/75; TEMP 98.5; O2SAT 97
[2022-11-07] MEDS: NICOTINE 21MG/24HR 1 EA TRANSDERMAL TD SCH (18:53)
[2022-11-07 19:54] VITALS: BP_SYST 106; BP_SYST 92; BP_DIAS 48; BP_DIAS 56; TEMP 97.2; O2SAT 97
[2022-11-07 20:28] LABS: BASO # 0.1 10^3/uL (0.0-0.2); BASO % 0.3 % (0.0-1.0); EOS # 0.5 10^3/uL (0.0-0.5); EOS % 2.5 % (0.0-3.0); HEMATOCRIT 29.1 % (36.0-47.0); HEMOGLOBIN 9.9 g/dl (12.0-15.5); LYMPH # 2.7 10^3/uL (1.5-5.0); LYMPH % 15.3 % (24.0-44.0); MONO % 10.6 % (2.0-8.0); NEUTROPHILS # 12.5 10^3/uL (1.5-8.5); NEUTROPHILS % 70.6 % (36.0-66.0); PLATELET COUNT, AUTOMATED 274 10^3/uL (150-450); RED BLOOD COUNT 2.91 10^6/uL (4.00-5.40); WHITE BLOOD COUNT 17.8 10^3/uL (4.0-10.0)
[2022-11-07 20:30] VITALS: BP 106/56
[2022-11-07] MEDS: PANTOPRAZOLE 40MG VIAL IV SCH (20:35)
[2022-11-07] MEDS: ADVAIR HFA 115/21MCG INHALER INH SCH (20:37)
[2022-11-07 20:54] LABS: MONO # 1.9 10^3/uL (0.0-0.8)
[2022-11-07] MEDS ORDERED: CARVedilol 3.125 MG TAB PO SCH (21:00)
[2022-11-07 23:56] VITALS: BP 115/56; TEMP 96.6; O2SAT 95
[2022-11-08] VITALS (17 sets, daily range): BP systolic 84–154; BP diastolic 42–96; TEMP 96–98.6; O2SAT 90–99
[2022-11-08] MEDS ORDERED: NS 1,000 ML IV ONE ×2 (00:25→01:55)
[2022-11-08 02:20] LABS: BASO # 0.1 10^3/uL (0.0-0.2); BASO % 0.5 % (0.0-1.0); EOS # 0.5 10^3/uL (0.0-0.5); EOS % 3.6 % (0.0-3.0); HEMOGLOBIN 8.8 g/dl (12.0-15.5); LYMPH # 2.9 10^3/uL (1.5-5.0); LYMPH % 21.5 % (24.0-44.0); MEAN CORPUSCULAR HEMOGLOBIN 33.6 pg (27.0-33.0); MEAN CORPUSCULAR HGB CONC 32.6 g/dl (32.0-36.5); MEAN CORPUSCULAR VOLUME 103.1 fl (80.0-96.0); MONO # 1.5 10^3/uL (0.0-0.8); MONO % 11.2 % (2.0-8.0); NEUTROPHILS # 8.4 10^3/uL (1.5-8.5); NEUTROPHILS % 62.6 % (36.0-66.0); PLATELET COUNT, AUTOMATED 243 10^3/uL (150-450); RED BLOOD COUNT 2.62 10^6/uL (4.00-5.40); WHITE BLOOD COUNT 13.4 10^3/uL (4.0-10.0)
[2022-11-08] MEDS ORDERED: MORPHINE 2 MG/ML 1ML VIAL IV PRN (02:20)
[2022-11-08 02:55] LABS: ALBUMIN 2.5 G/DL (3.2-5.2); ALKALINE PHOSPHATASE 84 U/L (46-116); ALT/SGPT < 9 U/L (7.0-40); AST/SGOT 22 U/L (<34); BILIRUBIN,TOTAL 0.2 MG/DL (0.3-1.2); BLOOD UREA NITROGEN 21 MG/DL (9-23); CALCIUM LEVEL 7.2 MG/DL (8.3-10.6); CARBON DIOXIDE LEVEL 21 MMOL/L (20-31); CHLORIDE LEVEL 112 MMOL/L (98-107); CREATININE FOR GFR 0.85 MG/DL (0.55-1.30); GLOMERULAR FILTRATION RATE > 60.0 (>45); GLUCOSE, FASTING 77 MG/DL (74-106); POTASSIUM SERUM 3.6 MMOL/L (3.5-5.1); SODIUM LEVEL 137 MMOL/L (136-145)
[2022-11-08] MEDS: LR 1,000 ML IV SCH ×3 (03:14→22:34)
[2022-11-08 07:24] LABS: HEMATOCRIT 30.6 % (36.0-47.0); HEMOGLOBIN 9.9 g/dl (12.0-15.5); MEAN CORPUSCULAR HEMOGLOBIN 32.6 pg (27.0-33.0); MEAN CORPUSCULAR HGB CONC 32.4 g/dl (32.0-36.5); MEAN CORPUSCULAR VOLUME 100.7 fl (80.0-96.0); PLATELET COUNT, AUTOMATED 227 10^3/uL (150-450); RED BLOOD COUNT 3.04 10^6/uL (4.00-5.40); WHITE BLOOD COUNT 12.2 10^3/uL (4.0-10.0)
[2022-11-08 07:53] LABS: BLOOD UREA NITROGEN 19 MG/DL (9-23); CARBON DIOXIDE LEVEL 20 MMOL/L (20-31); CHLORIDE LEVEL 114 MMOL/L (98-107); CREATININE FOR GFR 0.75 MG/DL (0.55-1.30); GLOMERULAR FILTRATION RATE > 60.0 (>45); GLUCOSE, FASTING 78 MG/DL (74-106); IRON (FE) 70 UG/DL (50-170); PERCENT SATURATION 32.3 % (13.2-45.0); POTASSIUM SERUM 3.8 MMOL/L (3.5-5.1); SODIUM LEVEL 138 MMOL/L (136-145); TOTAL IRON BINDING CAPACITY 217 UG/DL (250-425)
[2022-11-08 07:55] LABS: FERRITIN 112.2 NG/ML (7.3-270.7); VITAMIN B12 LEVEL 319 PG/ML (211-911)
[2022-11-08 07:57] LABS: FOLATE 14.23 NG/ML (>5.4)
[2022-11-08] MEDS: ADVAIR HFA 115/21MCG INHALER INH SCH ×2 (08:32→20:00)
[2022-11-08] MEDS: NICOTINE 21MG/24HR 1 EA TRANSDERMAL TD SCH (08:53)
[2022-11-08] MEDS: PANTOPRAZOLE 40MG VIAL IV SCH ×2 (08:53→22:30)
[2022-11-08] MEDS: ESCITALOPRAM OXALATE 10 MG TAB (LEXAPRO) PO SCH (09:56)
[2022-11-08] MEDS: SUCRALFATE SUSP 1GM/10ML UD PO SCH ×4 (09:56→22:30)
[2022-11-08] MEDS: HYDROXYCHLOROQUINE 200 MG TAB PO SCH (09:56)
[2022-11-08] MEDS: MULTIVITAMINS/MINERALS THERAP 1 TAB PO SCH (09:56)
[2022-11-08] MEDS: GABAPENTIN 300 MG CAP PO SCH ×3 (09:57→22:30)
[2022-11-08] MEDS ORDERED: PREVNAR-20 VACCINE 0.5ML SYRINGE IM.IMMUN ONE (12:00)
[2022-11-08] MEDS ORDERED: ACETAMINOPHEN 1000MG 100ML IV BAG IV ONE (13:00)
[2022-11-08 14:00] LABS: ALBUMIN 3.2 G/DL (3.2-5.2); BILIRUBIN,DIRECT 0.2 MG/DL (<0.4); BILIRUBIN,TOTAL 0.4 MG/DL (0.3-1.2); TOTAL PROTEIN 6.1 G/DL (5.7-8.2)
[2022-11-08 20:28] LABS: HEMATOCRIT 34.9 % (36.0-47.0); HEMOGLOBIN 11.7 g/dl (12.0-15.5)
[2022-11-08] MEDS ORDERED: fentaNYL 100 MCG/2 ML INJECTION As Ordered ONE (21:07)
[2022-11-08] MEDS ORDERED: LIDOCAINE 2% 100MG/5ML SDV (FOR ANES.) As Ordered ONE (21:07)
[2022-11-08] MEDS ORDERED: propofoL 200 MG/20 ML VIAL As Ordered ONE (21:07)
[2022-11-09] VITALS: BP 116/58; TEMP 98.1; O2SAT 98
[2022-11-09] MEDS ORDERED: NIX CREME RINSE 1% 60ML KIT TOP ONE (02:00)
[2022-11-09 04:00] VITALS: BP 122/57; TEMP 96.8; O2SAT 93
[2022-11-09 06:12] LABS: BASO # 0.1 10^3/uL (0.0-0.2); BASO % 0.3 % (0.0-1.0); EOS # 0.5 10^3/uL (0.0-0.5); EOS % 3.5 % (0.0-3.0); HEMATOCRIT 32.7 % (36.0-47.0); HEMOGLOBIN 10.7 g/dl (12.0-15.5); LYMPH % 12.8 % (24.0-44.0); MEAN CORPUSCULAR HEMOGLOBIN 32.8 pg (27.0-33.0); MEAN CORPUSCULAR HGB CONC 32.7 g/dl (32.0-36.5); MEAN CORPUSCULAR VOLUME 100.3 fl (80.0-96.0); MONO # 1.3 10^3/uL (0.0-0.8); MONO % 8.4 % (2.0-8.0); NEUTROPHILS # 11.4 10^3/uL (1.5-8.5); NEUTROPHILS % 74.5 % (36.0-66.0); PLATELET COUNT, AUTOMATED 251 10^3/uL (150-450); RED BLOOD COUNT 3.26 10^6/uL (4.00-5.40); WHITE BLOOD COUNT 15.3 10^3/uL (4.0-10.0)
[2022-11-09 06:36] LABS: BLOOD UREA NITROGEN 10 MG/DL (9-23); CALCIUM LEVEL 7.3 MG/DL (8.3-10.6); CARBON DIOXIDE LEVEL 22 MMOL/L (20-31); CHLORIDE LEVEL 110 MMOL/L (98-107); CREATININE FOR GFR 0.61 MG/DL (0.55-1.30); GLOMERULAR FILTRATION RATE > 60.0 (>45); GLUCOSE, FASTING 70 MG/DL (74-106); MAGNESIUM LEVEL 1.7 MG/DL (1.8-2.4); POTASSIUM SERUM 3.4 MMOL/L (3.5-5.1); SODIUM LEVEL 140 MMOL/L (136-145)
[2022-11-09] MEDS ORDERED: GLUCOSE 4GM CHEW TABLET PO PRN (07:40)
[2022-11-09] MEDS ORDERED: GLUCAGON INJ 1MG VIAL SC PRN (07:40)
[2022-11-09] MEDS ORDERED: POTASSIUM CHLORIDE 10MEQ SR TABLET PO ONE (07:40)
[2022-11-09] MEDS ORDERED: DEXTROSE 50% 50ML SYRINGE IV PRN (07:40)
[2022-11-09] MEDS: MAG SULF 1GM/100ML (MAG RUN) 1 GM in IV 1 EA IV SCH ×2 (08:00→09:00)
[2022-11-09] MEDS: NICOTINE 21MG/24HR 1 EA TRANSDERMAL TD SCH (09:00)
[2022-11-09] MEDS: LR 1,000 ML IV SCH (09:05)
[2022-11-09] MEDS: ADVAIR HFA 115/21MCG INHALER INH SCH (09:08)
[2022-11-09] MEDS: PANTOPRAZOLE 40MG VIAL IV SCH (10:22)
[2022-11-09] MEDS: GABAPENTIN 300 MG CAP PO SCH (10:22)
[2022-11-09] MEDS: MULTIVITAMINS/MINERALS THERAP 1 TAB PO SCH (10:23)
[2022-11-09] MEDS: HYDROXYCHLOROQUINE 200 MG TAB PO SCH (10:23)
[2022-11-09] MEDS: SUCRALFATE SUSP 1GM/10ML UD PO SCH (10:23)
[2022-11-09] MEDS: ESCITALOPRAM OXALATE 10 MG TAB (LEXAPRO) PO SCH (10:29)
[2022-11-09] MEDS ORDERED: PANT40TA29 PO (11:22)
[2022-11-09] MEDS ORDERED: SUCR1TAB56 PO (11:22)
== END 2022-11-09 11:47 | disposition left against medical advice (07) | DRG 384 ==
LOC: EDBD 11:32 → M ED 11:32 → M ED INP 14:37 → M PCU 18:18
PROVIDERS: ADMIT Internal Medicine; ATTEND Internal Medicine
PROC: 0DB98ZX Excision of Duodenum, Via Natural or Artificial Opening Endoscopic, Diagnostic (ICD-10-PCS; 2022-11-08)
PROC: 30233N1 Transfusion of Nonautologous Red Blood Cells into Peripheral Vein, Percutaneous Approach (ICD-10-PCS; principal; 2022-11-08 17:00)
DX: K25.9 Gastric ulcer, unspecified as acute or chronic, without hemorrhage or perforation (principal); D68.32 Hemorrhagic disorder due to extrinsic circulating anticoagulants; D62 Acute posthemorrhagic anemia; I95.9 Hypotension, unspecified; D69.1 Qualitative platelet defects; J44.9 Chronic obstructive pulmonary disease, unspecified; I25.10 Atherosclerotic heart disease of native coronary artery without angina pectoris; M06.9 Rheumatoid arthritis, unspecified; I10 Essential (primary) hypertension; K44.9 Diaphragmatic hernia without obstruction or gangrene; E78.5 Hyperlipidemia, unspecified; F32.A Depression, unspecified; E03.9 Hypothyroidism, unspecified; F17.210 Nicotine dependence, cigarettes, uncomplicated; M54.9 Dorsalgia, unspecified; G89.29 Other chronic pain; Z79.890 Hormone replacement therapy; Z79.899 Other long term (current) drug therapy; Z88.5 Allergy status to narcotic agent; Z88.6 Allergy status to analgesic agent; Z88.8 Allergy status to other drugs, medicaments and biological substances; Z20.822 Contact with and (suspected) exposure to COVID-19

== ENCOUNTER → 2022-11-25 | Outpatient (CLI) | payer OTHER ==
[~2022-11-25] MED LIST changes: +ALEN70TA82 PO; +HYDR200T3 PO; -HYDR200T46 PO; +LEXA1TAB PO; +PANT40TA29 PO; +SUCR1TAB56 PO; +VITMTA PO
[2022-11-25 18:27] LABS: BASO % 0.3 % (0.0-1.0); EOS # 0.2 10^3/uL (0.0-0.5); EOS % 1.8 % (0.0-3.0); HEMATOCRIT 34.1 % (36.0-47.0); HEMOGLOBIN 11.2 g/dl (12.0-15.5); LYMPH % 17.6 % (24.0-44.0); MEAN CORPUSCULAR HEMOGLOBIN 33.9 pg (27.0-33.0); MEAN CORPUSCULAR HGB CONC 32.8 g/dl (32.0-36.5); MEAN CORPUSCULAR VOLUME 103.3 fl (80.0-96.0); MONO # 1.2 10^3/uL (0.0-0.8); MONO % 10.9 % (2.0-8.0); NEUTROPHILS # 7.8 10^3/uL (1.5-8.5); PLATELET COUNT, AUTOMATED 268 10^3/uL (150-450); WHITE BLOOD COUNT 11.4 10^3/uL (4.0-10.0)
[2022-11-25 18:49] LABS: ALBUMIN 3.4 G/DL (3.2-5.2); ALKALINE PHOSPHATASE 124 U/L (46-116); ALT/SGPT < 9 U/L (7.0-40); AST/SGOT < 8 U/L (<34); BILIRUBIN,TOTAL 0.2 MG/DL (0.3-1.2); BLOOD UREA NITROGEN 10 MG/DL (9-23); CALCIUM LEVEL 8.7 MG/DL (8.3-10.6); CARBON DIOXIDE LEVEL 22 MMOL/L (20-31); CHLORIDE LEVEL 111 MMOL/L (98-107); CREATININE FOR GFR 0.71 MG/DL (0.55-1.30); FERRITIN 111.2 NG/ML (7.3-270.7); GLOMERULAR FILTRATION RATE > 60.0 (>45); GLUCOSE, FASTING 99 MG/DL (74-106); IRON (FE) 14 UG/DL (50-170); POTASSIUM SERUM 3.6 MMOL/L (3.5-5.1); SODIUM LEVEL 141 MMOL/L (136-145); TOTAL PROTEIN 6.2 G/DL (5.7-8.2)
[2022-11-25 18:50] LABS: THYROID STIMULATING HORMONE 1.063 uIU/ML (0.55-4.78)
[2022-11-25 18:52] LABS: FREE T4 1.24 NG/DL (0.89-1.76)
== END ==
LOC: M PLALAB 15:36
PROVIDERS: ATTEND Physician Assistant Medical
DX: K25.0 Acute gastric ulcer with hemorrhage (principal); F32.9 Major depressive disorder, single episode, unspecified

== ENCOUNTER → 2022-11-25 | Outpatient (REF) | payer OTHER | LOC: M SFHCPLAZ 15:18 | PROVIDERS: ATTEND Physician Assistant Medical | DX: K25.0 Acute gastric ulcer with hemorrhage (principal); F32.9 Major depressive disorder, single episode, unspecified ==

== ENCOUNTER 2023-01-24 14:40 | Emergency (ER) | payer OTHER ==
[~2023-01-24] VITALS: Ht 147.3 cm; Wt 63.6 kg
[~2023-01-24 14:40] MED LIST changes: -HYDR200T3 PO; +HYDR200T46 PO
[2023-01-24 15:19] VITALS: TEMP 98.4
[2023-01-24 16:04] LABS: BASO % 0.3 % (0.0-1.0); EOS # 0.2 10^3/uL (0.0-0.5); EOS % 1.6 % (0.0-3.0); HEMATOCRIT 32.5 % (36.0-47.0); LYMPH # 0.9 10^3/uL (1.5-5.0); LYMPH % 9.5 % (24.0-44.0); MEAN CORPUSCULAR HEMOGLOBIN 30.9 pg (27.0-33.0); MEAN CORPUSCULAR HGB CONC 33.8 g/dl (32.0-36.5); MEAN CORPUSCULAR VOLUME 91.3 fl (80.0-96.0); MONO # 1.2 10^3/uL (0.0-0.8); MONO % 12.8 % (2.0-8.0); NEUTROPHILS # 7.3 10^3/uL (1.5-8.5); NEUTROPHILS % 75.4 % (36.0-66.0); PLATELET COUNT, AUTOMATED 295 10^3/uL (150-450); RED BLOOD COUNT 3.56 10^6/uL (4.00-5.40); WHITE BLOOD COUNT 9.7 10^3/uL (4.0-10.0)
[2023-01-24 16:34] LABS: RSV AMPLIFICATION NEGATIVE (NEGATIVE)
[2023-01-24 16:57] LABS: BLOOD UREA NITROGEN 25 MG/DL (9-23); CALCIUM LEVEL 8.8 MG/DL (8.3-10.6); CARBON DIOXIDE LEVEL 17 MMOL/L (20-31); CHLORIDE LEVEL 111 MMOL/L (98-107); CREATININE FOR GFR 0.96 MG/DL (0.55-1.30); GLOMERULAR FILTRATION RATE > 60.0 (>45); GLUCOSE, FASTING 106 MG/DL (74-106); POTASSIUM SERUM 3.4 MMOL/L (3.5-5.1); SODIUM LEVEL 138 MMOL/L (136-145)
[2023-01-24 17:01] LABS: FREE T4 1.02 NG/DL (0.89-1.76); THYROID STIMULATING HORMONE 0.112 uIU/ML (0.55-4.78)
[2023-01-24 17:15] LABS: INR 0.97; PARTIAL THROMBOPLASTIN TIME 33.2 SECONDS (24.8-34.2); PROTHROMBIN TIME 13.1 SECONDS (12.5-14.5)
[2023-01-24 18:25] VITALS: BP 144/65; O2SAT 99
== END 2023-01-24 18:45 | disposition home or self-care (01) ==
LOC: M ED 14:40
DX: R55 Syncope and collapse (principal); E86.0 Dehydration; E11.9 Type 2 diabetes mellitus without complications; K21.9 Gastro-esophageal reflux disease without esophagitis; J45.909 Unspecified asthma, uncomplicated; J44.9 Chronic obstructive pulmonary disease, unspecified; F32.9 Major depressive disorder, single episode, unspecified; G25.81 Restless legs syndrome; Z86.711 Personal history of pulmonary embolism; Z87.442 Personal history of urinary calculi; Z79.899 Other long term (current) drug therapy; Z88.8 Allergy status to other drugs, medicaments and biological substances; Z88.5 Allergy status to narcotic agent

== ENCOUNTER → 2023-03-17 | Outpatient (CLI) | payer OTHER ==
[2023-03-17 18:27] LABS: BASO # 0.1 10^3/uL (0.0-0.2); BASO % 0.4 % (0.0-1.0); EOS # 0.3 10^3/uL (0.0-0.5); EOS % 2.4 % (0.0-3.0); HEMATOCRIT 38.6 % (36.0-47.0); HEMOGLOBIN 12.7 g/dl (12.0-15.5); LYMPH # 2.1 10^3/uL (1.5-5.0); LYMPH % 17.2 % (24.0-44.0); MEAN CORPUSCULAR HEMOGLOBIN 30.7 pg (27.0-33.0); MEAN CORPUSCULAR HGB CONC 32.9 g/dl (32.0-36.5); MEAN CORPUSCULAR VOLUME 93.2 fl (80.0-96.0); MONO # 1.1 10^3/uL (0.0-0.8); MONO % 8.5 % (2.0-8.0); NEUTROPHILS # 8.7 10^3/uL (1.5-8.5); PLATELET COUNT, AUTOMATED 306 10^3/uL (150-450); RED BLOOD COUNT 4.14 10^6/uL (4.00-5.40); WHITE BLOOD COUNT 12.3 10^3/uL (4.0-10.0)
[2023-03-17 18:52] LABS: URIC ACID 5.5 MG/DL (3.1-7.8)
[2023-03-17 18:53] LABS: IRON (FE) 44 UG/DL (50-170)
[2023-03-17 18:54] LABS: ALBUMIN 3.3 G/DL (3.2-5.2); ALKALINE PHOSPHATASE 129 U/L (46-116); ALT/SGPT < 9 U/L (7.0-40); AST/SGOT 10 U/L (<34); BILIRUBIN,TOTAL < 0.2 MG/DL (0.3-1.2); BLOOD UREA NITROGEN 18 MG/DL (9-23); C REACTIVE PROTEIN QUANTITATIV < 0.40 MG/DL (<1.0); CALCIUM LEVEL 8.8 MG/DL (8.3-10.6); CARBON DIOXIDE LEVEL 21 MMOL/L (20-31); CHLORIDE LEVEL 111 MMOL/L (98-107); CHOLESTEROL LEVEL 131 MG/DL (<200); CHOLESTEROL RISK RATIO 3.76 (<5); CREATININE FOR GFR 0.79 MG/DL (0.55-1.30); GLOMERULAR FILTRATION RATE > 60.0 (>45); GLUCOSE, FASTING 95 MG/DL (74-106); HDL CHOLESTEROL 34.8 MG/DL (>40); LDL CHOLESTEROL 52.2 MG/DL (<100); MAGNESIUM LEVEL 1.8 MG/DL (1.8-2.4); NON-HDL-C 96.2 MG/DL; PHOSPHORUS LEVEL 3.8 MG/DL (2.4-5.1); POTASSIUM SERUM 3.6 MMOL/L (3.5-5.1); SODIUM LEVEL 141 MMOL/L (136-145); TOTAL PROTEIN 6.2 G/DL (5.7-8.2); TRIGLYCERIDES LEVEL 220 MG/DL (<150)
[2023-03-17 18:56] LABS: FERRITIN 272.5 NG/ML (7.3-270.7); TOTAL 25(OH) VITAMIN D 32.1 NG/ML (20.0-100.0); VITAMIN B12 LEVEL 886 PG/ML (211-911)
[2023-03-17 18:58] LABS: ERYTHROCYTE SEDIMENTATION RATE 21 mm/hr (0-30)
[2023-03-17 18:59] LABS: HEMOGLOBIN A1c 5.2 % (4.0-6.0)
== END ==
LOC: M PLALAB 16:13
PROVIDERS: ATTEND Physician Assistant Medical
DX: E83.39 Other disorders of phosphorus metabolism (principal); Z09 Encounter for follow-up examination after completed treatment for conditions other than malignant neoplasm; D50.9 Iron deficiency anemia, unspecified; F32.9 Major depressive disorder, single episode, unspecified; K52.9 Noninfective gastroenteritis and colitis, unspecified; E78.2 Mixed hyperlipidemia; M10.9 Gout, unspecified; E83.42 Hypomagnesemia; E53.8 Deficiency of other specified B group vitamins; M06.9 Rheumatoid arthritis, unspecified; E13.9 Other specified diabetes mellitus without complications

== ENCOUNTER 2023-03-29 14:36 | Emergency (ER) | payer OTHER ==
[~2023-03-29] VITALS: Ht 149.9 cm; Wt 58.6 kg
[2023-03-29] MEDS ORDERED: NS 1,000 ML IV ONE (14:50)
[2023-03-29 15:19] LABS: BASO # 0.1 10^3/uL (0.0-0.2); BASO % 0.5 % (0.0-1.0); EOS # 0.2 10^3/uL (0.0-0.5); EOS % 1.6 % (0.0-3.0); HEMATOCRIT 37.9 % (36.0-47.0); HEMOGLOBIN 12.6 g/dl (12.0-15.5); MEAN CORPUSCULAR HEMOGLOBIN 31.9 pg (27.0-33.0); MEAN CORPUSCULAR HGB CONC 33.2 g/dl (32.0-36.5); MEAN CORPUSCULAR VOLUME 95.9 fl (80.0-96.0); MONO # 1.3 10^3/uL (0.0-0.8); NEUTROPHILS # 7.5 10^3/uL (1.5-8.5); NEUTROPHILS % 67.5 % (36.0-66.0); PLATELET COUNT, AUTOMATED 317 10^3/uL (150-450); RED BLOOD COUNT 3.95 10^6/uL (4.00-5.40); WHITE BLOOD COUNT 11.1 10^3/uL (4.0-10.0)
[2023-03-29 15:41] LABS: LIPASE 38 U/L (12-53)
[2023-03-29 15:44] LABS: ALKALINE PHOSPHATASE 122 U/L (46-116); ALT/SGPT < 9 U/L (7.0-40); AST/SGOT 15 U/L (<34); BILIRUBIN,DIRECT 0.1 MG/DL (<0.4); BILIRUBIN,TOTAL 0.3 MG/DL (0.3-1.2); BLOOD UREA NITROGEN 17 MG/DL (9-23); CALCIUM LEVEL 8.5 MG/DL (8.3-10.6); CARBON DIOXIDE LEVEL 22 MMOL/L (20-31); CHLORIDE LEVEL 109 MMOL/L (98-107); CREATININE FOR GFR 0.67 MG/DL (0.55-1.30); GLOMERULAR FILTRATION RATE > 60.0 (>45); GLUCOSE, FASTING 101 MG/DL (74-106); POTASSIUM SERUM 4.3 MMOL/L (3.5-5.1); SODIUM LEVEL 140 MMOL/L (136-145); TOTAL PROTEIN 5.7 G/DL (5.7-8.2)
[2023-03-29] MEDS ORDERED: ISOVUE-370 76% 100ML VIAL As Ordered ONE (16:11)
[2023-03-29 17:59] VITALS: BP 133/60; TEMP 98.3; O2SAT 99
== END 2023-03-29 18:01 | disposition left against medical advice (07) ==
LOC: M ED 14:36 → EDBD 14:36 → M ED 18:01
DX: R19.7 Diarrhea, unspecified (principal); E11.9 Type 2 diabetes mellitus without complications; I10 Essential (primary) hypertension; J44.9 Chronic obstructive pulmonary disease, unspecified; E03.9 Hypothyroidism, unspecified; F17.200 Nicotine dependence, unspecified, uncomplicated; Z88.5 Allergy status to narcotic agent; Z88.6 Allergy status to analgesic agent; Z88.8 Allergy status to other drugs, medicaments and biological substances; Z79.52 Long term (current) use of systemic steroids; Z79.811 Long term (current) use of aromatase inhibitors; Z79.899 Other long term (current) drug therapy; Z53.9 Procedure and treatment not carried out, unspecified reason
CPT/HCPCS: 74177; 80048; 80076; 83690; 85025; 87635; 96360; 99284; Q9967

== ENCOUNTER 2023-07-18 13:46 | Inpatient (IN) | payer MEDICARE, OTHER ==
[~2023-07-18] VITALS: Ht 149.9 cm; Wt 65.0 kg
[~2023-07-18 13:46] MED LIST changes: +IPRA0.00 INH; -IPRA0.00 NEB
[2023-07-18] MEDS ORDERED: NS 1,640 ML in IV 1 EA IV ONE (14:15)
[2023-07-18 16:04] LABS: BASO % 0.1 % (0.0-1.0); HEMATOCRIT 31.6 % (36.0-47.0); HEMOGLOBIN 10.2 g/dl (12.0-15.5); LYMPH # 1.5 10^3/uL (1.5-5.0); LYMPH % 7.5 % (24.0-44.0); MEAN CORPUSCULAR HEMOGLOBIN 38.1 pg (27.0-33.0); MEAN CORPUSCULAR HGB CONC 32.3 g/dl (32.0-36.5); MONO % 11.2 % (2.0-8.0); NEUTROPHILS # 16.2 10^3/uL (1.5-8.5); NEUTROPHILS % 80.5 % (36.0-66.0); PLATELET COUNT, AUTOMATED 207 10^3/uL (150-450); RED BLOOD COUNT 2.68 10^6/uL (4.00-5.40); WHITE BLOOD COUNT 20.1 10^3/uL (4.0-10.0)
[2023-07-18 16:14] LABS: APPEARANCE, URINE CLOUDY (CLEAR); BACTERIA, URINE AUTO 3+ (NEGATIVE); BILIRUBIN, URINE AUTO NEGATIVE (NEGATIVE); BLOOD, URINE BLOOD NEGATIVE (NEGATIVE); COLOR, URINE AMBER (YELLOW); GLUCOSE, URINE (UA) AUTO NEGATIVE (NEGATIVE); KETONE, URINE AUTO NEGATIVE (NEGATIVE); LEUKOCYTE ESTERASE, URINE AUTO 3+ (NEGATIVE); MUCUS, URINE SMALL (NEGATIVE); NITRITE, URINE AUTO NEGATIVE (NEGATIVE); PROTEIN, URINE AUTO 1+ mg/dL (NEGATIVE); RBC, URINE AUTO 10 /HPF (0-3); SPECIFIC GRAVITY URINE AUTO 1.026 (1.002-1.035); SQUAMOUS EPITHELIAL CELL UR AU 1 /HPF (0-6); UROBILINOGEN, URINE AUTO 0.2 mg/dL (0.0-2.0); WBC, URINE AUTO 143 /HPF (0-3)
[2023-07-18 16:16] LABS: MEAN CORPUSCULAR VOLUME 117.9 fl (80.0-96.0); MONO # 2.3 10^3/uL (0.0-0.8)
[2023-07-18 16:21] LABS: INR 1.08; PROTHROMBIN TIME 13.7 SECONDS (12.5-14.5)
[2023-07-18 16:24] LABS: PARTIAL THROMBOPLASTIN TIME 38.2 SECONDS (24.8-34.2)
[2023-07-18] MEDS ORDERED: PIPERACILLIN/TAZOBACTAM SOD 4.5 GM in D5W MINI-BAG PLUS 50 ML IV ONE (16:30)
[2023-07-18 16:40] LABS: PLATELET ESTIMATE NORMAL (NORMAL)
[2023-07-18 16:49] LABS: ALBUMIN 2.4 G/DL (3.2-5.2); ALKALINE PHOSPHATASE 79 U/L (46-116); ALT/SGPT 12 U/L (7.0-40); AMYLASE 25 U/L (30-118); AST/SGOT 61 U/L (<34); BILIRUBIN,DIRECT < 0.1 MG/DL (<0.4); BILIRUBIN,TOTAL < 0.2 MG/DL (0.3-1.2); BLOOD UREA NITROGEN 68 MG/DL (9-23); CALCIUM LEVEL 7.4 MG/DL (8.3-10.6); CARBON DIOXIDE LEVEL < 10.0 MMOL/L (20-31); CHLORIDE LEVEL 109 MMOL/L (98-107); CK-MB VALUE MASS 14.2 NG/ML (<3.6); CPK CREATINE PHOSPHOKINASE 925 U/L (34-145); CREATININE FOR GFR 4.87 MG/DL (0.55-1.30); GLOMERULAR FILTRATION RATE 9.5 (>45); GLUCOSE, FASTING 71 MG/DL (74-106); MB/CK RELATIVE INDEX 1.53 (< OR =4); POTASSIUM SERUM 4.3 MMOL/L (3.5-5.1); PROCALCITONIN >50.00 ng/ml; SODIUM LEVEL 133 MMOL/L (136-145)
[2023-07-18] MEDS ORDERED: NS 1,000 ML IV ONE (17:20)
[2023-07-18] MEDS: NOREPINEPHRINE 4MG IN D5 250ML 4 MG in IV 1 EA IV SCH ×6 (17:31→21:37)
[2023-07-18] MEDS ORDERED: MED REC IN PROGRESS XX SCH (17:35)
[2023-07-18 17:41] LABS: CK-MB VALUE MASS 15.1 NG/ML (<3.6); MB/CK RELATIVE INDEX 1.59 (< OR =4)
[2023-07-18 17:50] LABS: CK-MB VALUE MASS 13.5 NG/ML (<3.6)
[2023-07-18 17:52] LABS: MB/CK RELATIVE INDEX 1.6 (< OR =4)
[2023-07-18] MEDS ORDERED: MED REC CURRENTLY UNOBTAINABLE XX SCH (18:30)
[2023-07-18] MEDS ORDERED: VASOPRESSIN INJ 20 UNITS in NS 500 ML IV SCH (18:30)
[2023-07-18 18:43] LABS: ACETONE/KETONE 0.98 MMOL/L (0.02-0.27)
[2023-07-18 18:54] LABS: PHOSPHORUS LEVEL 6.8 MG/DL (2.4-5.1)
[2023-07-18 18:57] LABS: FREE T4 0.52 NG/DL (0.89-1.76); THYROID STIMULATING HORMONE 5.474 uIU/ML (0.55-4.78)
[2023-07-18 19:14] LABS: VENOUS BASE EXCESS -21.4 (-2.0-2.0); VENOUS HCO3 7.9 MMOL/L (23.0-27.0); VENOUS O2 SATURATION 98.7 % (60.0-80.0); VENOUS PARTIAL PRESSURE O2 153.2 mmHg (30.0-50.0); VENOUS STANDARD HCO3 8.8 MMOL/L; VENOUS TOTAL CO2 8.9 MMOL/L (24.0-28.0)
[2023-07-18] MEDS ORDERED: ASCO500T PO (20:02)
[2023-07-18] MEDS ORDERED: SUCR1TAB56 PO (20:02)
[2023-07-18] MEDS ORDERED: PANT40TA29 PO (20:02)
[2023-07-18] MEDS ORDERED: SULF500T2 PO (20:02)
[2023-07-18] MEDS ORDERED: HOME MED LIST COMPLETE! XX SCH (20:05)
[2023-07-18] MEDS: cefTRIAXone SOD 2 GM in D5W MINI-BAG PLUS 50 ML IV SCH (20:59)
[2023-07-18 21:45] VITALS: BP 115/54; O2SAT 95
[2023-07-18] MEDS: HEPARIN SOD (PORCINE) 5000UNITS/ML 1ML VIAL/SYRINGE SC SCH (21:53)
[2023-07-18] MEDS: HYDROCORTISONE 100MG/2ML VIAL IV SCH (21:53)
[2023-07-18 22:00] VITALS: TEMP 98.1; O2SAT 96
[2023-07-18] MEDS ORDERED: LR 1,000 ML IV SCH (22:00)
[2023-07-18 22:01] VITALS: BP 107/56; O2SAT 96
[2023-07-18 22:15] VITALS: BP 108/58; O2SAT 95
[2023-07-18 22:47] LABS: HEMOGLOBIN A1c 4.6 % (4.0-6.0)
[2023-07-18] MEDS: IPRATROPIUM 0.5MG/ALBUTEROL 2.5MG INH SOL UD 3ML (DUONEB) NEB SCH (23:11)
[2023-07-19] VITALS (94 sets, daily range): BP systolic 84–129; BP diastolic 45–77; TEMP 97.5–98.3; O2SAT 95–100
[2023-07-19] MEDS: NYSTATIN 100,000 UNITS/GM TOPICAL PWD 15GM TOP SCH ×2 (00:05→09:03)
[2023-07-19 03:44] LABS: VENOUS BASE EXCESS -19.2 (-2.0-2.0); VENOUS HCO3 9.5 MMOL/L (23.0-27.0); VENOUS O2 SATURATION 96.9 % (60.0-80.0); VENOUS PARTIAL PRESSURE CO2 32.6 mmHg (38.0-50.0); VENOUS PARTIAL PRESSURE O2 96.8 mmHg (30.0-50.0); VENOUS PH 7.081 UNITS (7.330-7.430); VENOUS TOTAL CO2 10.5 MMOL/L (24.0-28.0)
[2023-07-19] MEDS ORDERED: SODIUM BICARBONATE 8.4% INJ 50ML SYRINGE IV STA (03:50)
[2023-07-19] MEDS: HYDROCORTISONE 100MG/2ML VIAL IV SCH ×2 (04:07→16:02)
[2023-07-19] MEDS: NOREPINEPHRINE 4MG IN D5 250ML 4 MG in IV 1 EA IV SCH ×4 (04:07→14:34)
[2023-07-19 04:14] LABS: BLOOD UREA NITROGEN 61 MG/DL (9-23); CALCIUM LEVEL 7.1 MG/DL (8.3-10.6); CARBON DIOXIDE LEVEL < 10.0 MMOL/L (20-31); CHLORIDE LEVEL 108 MMOL/L (98-107); CREATININE FOR GFR 3.82 MG/DL (0.55-1.30); GLOMERULAR FILTRATION RATE 12.6 (>45); GLUCOSE, FASTING 154 MG/DL (74-106); POTASSIUM SERUM 3.5 MMOL/L (3.5-5.1); SODIUM LEVEL 130 MMOL/L (136-145)
[2023-07-19] MEDS: SODIUM BICARBONATE 150 MEQ in D5W 1,000 ML IV SCH ×3 (05:09→22:33)
[2023-07-19] MEDS: HEPARIN SOD (PORCINE) 5000UNITS/ML 1ML VIAL/SYRINGE SC SCH ×3 (05:13→21:07)
[2023-07-19 05:22] LABS: BASO % 0.1 % (0.0-1.0); HEMATOCRIT 26.6 % (36.0-47.0); HEMOGLOBIN 9.2 g/dl (12.0-15.5); LYMPH # 0.6 10^3/uL (1.5-5.0); MEAN CORPUSCULAR HEMOGLOBIN 37.9 pg (27.0-33.0); MEAN CORPUSCULAR HGB CONC 34.6 g/dl (32.0-36.5); MEAN CORPUSCULAR VOLUME 109.5 fl (80.0-96.0); MONO # 0.5 10^3/uL (0.0-0.8); MONO % 3.2 % (2.0-8.0); NEUTROPHILS # 14.2 10^3/uL (1.5-8.5); NEUTROPHILS % 91.9 % (36.0-66.0); PLATELET COUNT, AUTOMATED 231 10^3/uL (150-450); RED BLOOD COUNT 2.43 10^6/uL (4.00-5.40); WHITE BLOOD COUNT 15.4 10^3/uL (4.0-10.0)
[2023-07-19] MEDS: LEVOTHYROXINE 125MCG TABLET (0.125MG) PO SCH (05:38)
[2023-07-19] MEDS: LEVOTHYROXINE 50MCG TABLET (0.05MG) PO SCH (05:38)
[2023-07-19 05:52] LABS: CALCIUM LEVEL 7.2 MG/DL (8.3-10.6); CREATININE FOR GFR 3.76 MG/DL (0.55-1.30); GLOMERULAR FILTRATION RATE 12.8 (>45); POTASSIUM SERUM 3.6 MMOL/L (3.5-5.1)
[2023-07-19] MEDS: IPRATROPIUM 0.5MG/ALBUTEROL 2.5MG INH SOL UD 3ML (DUONEB) NEB SCH ×3 (09:01→23:15)
[2023-07-19] MEDS: HYDROXYCHLOROQUINE 200 MG TAB PO SCH ×2 (09:03→16:02)
[2023-07-19 10:04] LABS: ABG BASE EXCESS -12.7 (-2.0-2.0); ABG O2 SATURATION 96.6 % (95.0-99.0); ABG PARTIAL PRESSURE CO2 29.5 mmHg (35.0-45.0); ABG PARTIAL PRESSURE O2 88.7 mmHg (75.0-100.0); ABG STANDARD HCO3 14.4 MMOL/L. (22.0-26.0); ABG TOTAL CO2 13.9 MMOL/L (23.0-31.0); ABG pH (ARTERIAL) 7.263 UNITS (7.350-7.450)
[2023-07-19] MEDS: ACETAMINOPHEN TAB 650MG DOSE (2X325MG) PO PRN (12:31)
[2023-07-19] MEDS: cefTRIAXone SOD 2 GM in D5W MINI-BAG PLUS 50 ML IV SCH (19:51)
[2023-07-20] VITALS (80 sets, daily range): BP systolic 78–125; BP diastolic 43–69; TEMP 97–99; O2SAT 90–100
[2023-07-20] MEDS: NOREPINEPHRINE 4MG IN D5 250ML 4 MG in IV 1 EA IV SCH ×6 (00:18→21:49)
[2023-07-20] MEDS: HYDROCORTISONE 100MG/2ML VIAL IV SCH ×2 (04:14→15:06)
[2023-07-20 04:51] LABS: VENOUS BASE EXCESS -1.8 (-2.0-2.0); VENOUS HCO3 22.8 MMOL/L (23.0-27.0); VENOUS O2 SATURATION 96.9 % (60.0-80.0); VENOUS PARTIAL PRESSURE CO2 37.8 mmHg (38.0-50.0); VENOUS PARTIAL PRESSURE O2 90.6 mmHg (30.0-50.0); VENOUS PH 7.398 UNITS (7.330-7.430); VENOUS TOTAL CO2 23.9 MMOL/L (24.0-28.0)
[2023-07-20 04:55] LABS: BASO % 0.1 % (0.0-1.0); EOS % 0.1 % (0.0-3.0); HEMOGLOBIN 8.1 g/dl (12.0-15.5); LYMPH # 1.5 10^3/uL (1.5-5.0); LYMPH % 9.9 % (24.0-44.0); MEAN CORPUSCULAR HEMOGLOBIN 37.5 pg (27.0-33.0); MEAN CORPUSCULAR VOLUME 101.9 fl (80.0-96.0); MONO # 1.2 10^3/uL (0.0-0.8); MONO % 8.1 % (2.0-8.0); NEUTROPHILS # 12.1 10^3/uL (1.5-8.5); NEUTROPHILS % 81.1 % (36.0-66.0); PLATELET COUNT, AUTOMATED 239 10^3/uL (150-450); RED BLOOD COUNT 2.16 10^6/uL (4.00-5.40); WHITE BLOOD COUNT 14.9 10^3/uL (4.0-10.0)
[2023-07-20 05:02] LABS: MEAN CORPUSCULAR HGB CONC 36.8 g/dl (32.0-36.5)
[2023-07-20 05:30] LABS: CREATININE FOR GFR 2.19 MG/DL (0.55-1.30); POTASSIUM SERUM 2.3 MMOL/L (3.5-5.1)
[2023-07-20] MEDS: LEVOTHYROXINE 50MCG TABLET (0.05MG) PO SCH (05:46)
[2023-07-20] MEDS: ACETAMINOPHEN TAB 650MG DOSE (2X325MG) PO PRN (05:46)
[2023-07-20] MEDS: LEVOTHYROXINE 125MCG TABLET (0.125MG) PO SCH (05:46)
[2023-07-20] MEDS: HEPARIN SOD (PORCINE) 5000UNITS/ML 1ML VIAL/SYRINGE SC SCH ×3 (05:47→21:24)
[2023-07-20] MEDS: SODIUM BICARBONATE 150 MEQ in D5W 1,000 ML IV SCH (06:24)
[2023-07-20] MEDS ORDERED: POTASSIUM CHLORIDE 10% LIQ 20MEQ/15ML UDC PO ONE (08:00)
[2023-07-20] MEDS ORDERED: KCL 10MEQ/100ML SWI (KRUN) 10 MEQ in IV 1 EA IV SCH (08:00)
[2023-07-20] MEDS: HYDROXYCHLOROQUINE 200 MG TAB PO SCH ×2 (08:19→16:17)
[2023-07-20] MEDS: KCL 20MEQ IN 100ML SWI (KRUN) 20 MEQ in IV 1 EA IV SCH ×8 (08:19→16:16)
[2023-07-20] MEDS: NYSTATIN 100,000 UNITS/GM TOPICAL PWD 15GM TOP SCH (08:19)
[2023-07-20] MEDS: IPRATROPIUM 0.5MG/ALBUTEROL 2.5MG INH SOL UD 3ML (DUONEB) NEB SCH ×3 (08:43→23:14)
[2023-07-20] MEDS: SODIUM BICARBONATE 75 MEQ in KCL 20MEQ IN 0.45NS 1000ML 1,000 ML IV SCH ×4 (11:34→21:48)
[2023-07-20] MEDS ORDERED: LR 1,000 ML IV SCH (12:00)
[2023-07-20] MEDS: LOPERAMIDE 2 MG CAPLET PO PRN ×2 (12:13→16:17)
[2023-07-20 12:34] LABS: CALCIUM LEVEL 6.8 MG/DL (8.3-10.6); CREATININE FOR GFR 1.78 MG/DL (0.55-1.30); GLOMERULAR FILTRATION RATE 30.5 (>45); MAGNESIUM LEVEL 1.3 MG/DL (1.8-2.4); POTASSIUM SERUM 2.8 MMOL/L (3.5-5.1)
[2023-07-20] MEDS: MAG SULF 1GM/100ML (MAG RUN) 1 GM in IV 1 EA IV SCH ×2 (13:08→14:06)
[2023-07-20 20:44] LABS: CREATININE FOR GFR 1.36 MG/DL (0.55-1.30); GLOMERULAR FILTRATION RATE 41.5 (>45); MAGNESIUM LEVEL 1.7 MG/DL (1.8-2.4); POTASSIUM SERUM 3.8 MMOL/L (3.5-5.1)
[2023-07-20] MEDS: cefTRIAXone SOD 2 GM in D5W MINI-BAG PLUS 50 ML IV SCH (21:24)
[2023-07-20] MEDS ORDERED: MAG SULF 1GM/100ML (MAG RUN) 1 GM in IV 1 EA IV ONE (21:55)
[2023-07-21] VITALS (42 sets, daily range): BP systolic 88–138; BP diastolic 49–64; TEMP 97.7–99.4; O2SAT 85–100
[2023-07-21] MEDS: HYDROCORTISONE 100MG/2ML VIAL IV SCH ×3 (04:17→21:37)
[2023-07-21 04:33] LABS: BASO % 0.1 % (0.0-1.0); HEMOGLOBIN 7.1 g/dl (12.0-15.5); LYMPH # 1.6 10^3/uL (1.5-5.0); LYMPH % 11.4 % (24.0-44.0); MEAN CORPUSCULAR HEMOGLOBIN 37.2 pg (27.0-33.0); MEAN CORPUSCULAR VOLUME 103.1 fl (80.0-96.0); MONO # 1.4 10^3/uL (0.0-0.8); MONO % 10.2 % (2.0-8.0); NEUTROPHILS # 10.5 10^3/uL (1.5-8.5); NEUTROPHILS % 77.3 % (36.0-66.0); PLATELET COUNT, AUTOMATED 219 10^3/uL (150-450); RED BLOOD COUNT 1.91 10^6/uL (4.00-5.40); WHITE BLOOD COUNT 13.6 10^3/uL (4.0-10.0)
[2023-07-21 05:04] LABS: CALCIUM LEVEL 7.2 MG/DL (8.3-10.6); CREATININE FOR GFR 1.12 MG/DL (0.55-1.30); PHOSPHORUS LEVEL 2.5 MG/DL (2.4-5.1); POTASSIUM SERUM 3.8 MMOL/L (3.5-5.1)
[2023-07-21 05:07] LABS: HEMATOCRIT 19.7 % (36.0-47.0)
[2023-07-21] MEDS: HEPARIN SOD (PORCINE) 5000UNITS/ML 1ML VIAL/SYRINGE SC SCH ×3 (06:09→21:43)
[2023-07-21] MEDS: LEVOTHYROXINE 50MCG TABLET (0.05MG) PO SCH (06:09)
[2023-07-21] MEDS: SODIUM BICARBONATE 75 MEQ in KCL 20MEQ IN 0.45NS 1000ML 1,000 ML IV SCH ×2 (06:09)
[2023-07-21] MEDS: LEVOTHYROXINE 125MCG TABLET (0.125MG) PO SCH (06:09)
[2023-07-21] MEDS: IPRATROPIUM 0.5MG/ALBUTEROL 2.5MG INH SOL UD 3ML (DUONEB) NEB SCH ×3 (07:23→23:51)
[2023-07-21] MEDS: NYSTATIN 100,000 UNITS/GM TOPICAL PWD 15GM TOP SCH (08:19)
[2023-07-21] MEDS: HYDROXYCHLOROQUINE 200 MG TAB PO SCH ×2 (08:19→16:12)
[2023-07-21] MEDS: LevoFLOXacin 750 MG TABLET PO SCH (11:05)
[2023-07-21] MEDS: LOPERAMIDE 2 MG CAPLET PO PRN (15:04)
[2023-07-21] MEDS ORDERED: ONDANSETRON 4MG 2ML VIAL As Ordered ONE (15:20)
[2023-07-21] MEDS: ONDANSETRON 4MG 2ML VIAL IV PRN (15:22)
[2023-07-21] MEDS: NICOTINE 21MG/24HR 1 EA TRANSDERMAL TD SCH (16:30)
[2023-07-21] MEDS: ACETAMINOPHEN TAB 650MG DOSE (2X325MG) PO PRN (21:48)
[2023-07-22] VITALS (20 sets, daily range): BP systolic 104–160; BP diastolic 52–70; TEMP 96.3–99.5; O2SAT 90–100
[2023-07-22] MEDS: LevoFLOXacin 750 MG TABLET PO SCH (05:20)
[2023-07-22] MEDS: LEVOTHYROXINE 125MCG TABLET (0.125MG) PO SCH (05:20)
[2023-07-22] MEDS: HYDROCORTISONE 100MG/2ML VIAL IV SCH ×3 (05:20→20:57)
[2023-07-22] MEDS: LEVOTHYROXINE 50MCG TABLET (0.05MG) PO SCH (05:20)
[2023-07-22] MEDS: HEPARIN SOD (PORCINE) 5000UNITS/ML 1ML VIAL/SYRINGE SC SCH ×3 (05:21→21:42)
[2023-07-22] MEDS: LIDOCAINE 5% (LIDODERM) PATCH TD SCH (05:21)
[2023-07-22] MEDS: ACETAMINOPHEN TAB 650MG DOSE (2X325MG) PO PRN ×2 (05:23→20:57)
[2023-07-22 05:58] LABS: BASO % 0.1 % (0.0-1.0); LYMPH # 1.1 10^3/uL (1.5-5.0); LYMPH % 9.3 % (24.0-44.0); MEAN CORPUSCULAR HEMOGLOBIN 37.4 pg (27.0-33.0); MEAN CORPUSCULAR HGB CONC 35.4 g/dl (32.0-36.5); MEAN CORPUSCULAR VOLUME 105.5 fl (80.0-96.0); MONO # 1.3 10^3/uL (0.0-0.8); MONO % 10.8 % (2.0-8.0); NEUTROPHILS # 9.5 10^3/uL (1.5-8.5); NEUTROPHILS % 77.5 % (36.0-66.0); PLATELET COUNT, AUTOMATED 227 10^3/uL (150-450); RED BLOOD COUNT 1.82 10^6/uL (4.00-5.40); WHITE BLOOD COUNT 12.3 10^3/uL (4.0-10.0)
[2023-07-22 06:00] LABS: HEMATOCRIT 19.2 % (36.0-47.0)
[2023-07-22 06:01] LABS: HEMOGLOBIN 6.8 g/dl (12.0-15.5)
[2023-07-22 06:19] LABS: ALKALINE PHOSPHATASE 60 U/L (46-116); ALT/SGPT < 9 U/L (7.0-40); AST/SGOT 19 U/L (<34); BILIRUBIN,TOTAL 0.2 MG/DL (0.3-1.2); BLOOD UREA NITROGEN 30 MG/DL (9-23); CARBON DIOXIDE LEVEL 32 MMOL/L (20-31); CHLORIDE LEVEL 105 MMOL/L (98-107); CREATININE FOR GFR 1.08 MG/DL (0.55-1.30); GLOMERULAR FILTRATION RATE 54.2 (>45); GLUCOSE, FASTING 87 MG/DL (74-106); POTASSIUM SERUM 4.2 MMOL/L (3.5-5.1); SODIUM LEVEL 140 MMOL/L (136-145); TOTAL PROTEIN 4.1 G/DL (5.7-8.2)
[2023-07-22] MEDS: IPRATROPIUM 0.5MG/ALBUTEROL 2.5MG INH SOL UD 3ML (DUONEB) NEB SCH ×3 (07:17→23:41)
[2023-07-22] MEDS ORDERED: NICOTINE 21MG/24HR 1 EA TRANSDERMAL TD SCH (09:00)
[2023-07-22] MEDS: NYSTATIN 100,000 UNITS/GM TOPICAL PWD 15GM TOP SCH (09:39)
[2023-07-22] MEDS: HYDROXYCHLOROQUINE 200 MG TAB PO SCH ×2 (09:39→16:25)
[2023-07-22] MEDS: NICOTINE 21MG/24HR 1 EA TRANSDERMAL TD SCH (09:39)
[2023-07-22] MEDS: LOPERAMIDE 2 MG CAPLET PO PRN (19:15)
[2023-07-22 21:12] LABS: HEMATOCRIT 24.3 % (36.0-47.0); HEMOGLOBIN 8.4 g/dl (12.0-15.5)
[2023-07-22] MEDS: ONDANSETRON 4MG 2ML VIAL IV PRN (22:54)
[2023-07-22] MEDS ORDERED: RAMELTEON 8 MG TAB (ROZEREM) PO ONE (23:55)
[2023-07-23 03:02] VITALS: BP 118/63; TEMP 98.5; O2SAT 91
[2023-07-23] MEDS: HYDROCORTISONE 100MG/2ML VIAL IV SCH ×2 (03:54→14:02)
[2023-07-23] MEDS: LEVOTHYROXINE 125MCG TABLET (0.125MG) PO SCH (06:11)
[2023-07-23] MEDS: HEPARIN SOD (PORCINE) 5000UNITS/ML 1ML VIAL/SYRINGE SC SCH ×2 (06:11→14:02)
[2023-07-23] MEDS: LEVOTHYROXINE 50MCG TABLET (0.05MG) PO SCH (06:11)
[2023-07-23] MEDS: LevoFLOXacin 750 MG TABLET PO SCH (06:12)
[2023-07-23 06:14] LABS: BASO % 0.1 % (0.0-1.0); HEMATOCRIT 23.9 % (36.0-47.0); HEMOGLOBIN 8.1 g/dl (12.0-15.5); LYMPH % 6.8 % (24.0-44.0); MEAN CORPUSCULAR HEMOGLOBIN 33.3 pg (27.0-33.0); MEAN CORPUSCULAR HGB CONC 33.9 g/dl (32.0-36.5); MEAN CORPUSCULAR VOLUME 98.4 fl (80.0-96.0); MONO # 1.4 10^3/uL (0.0-0.8); MONO % 9.8 % (2.0-8.0); NEUTROPHILS # 11.3 10^3/uL (1.5-8.5); NEUTROPHILS % 79.4 % (36.0-66.0); PLATELET COUNT, AUTOMATED 240 10^3/uL (150-450); RED BLOOD COUNT 2.43 10^6/uL (4.00-5.40); WHITE BLOOD COUNT 14.2 10^3/uL (4.0-10.0)
[2023-07-23] MEDS: ONDANSETRON 4MG 2ML VIAL IV PRN (06:19)
[2023-07-23 06:44] LABS: CALCIUM LEVEL 8.2 MG/DL (8.3-10.6); CREATININE FOR GFR 1.19 MG/DL (0.55-1.30); GLOMERULAR FILTRATION RATE 48.5 (>45); MAGNESIUM LEVEL 1.9 MG/DL (1.8-2.4); POTASSIUM SERUM 4.5 MMOL/L (3.5-5.1)
[2023-07-23] MEDS: IPRATROPIUM 0.5MG/ALBUTEROL 2.5MG INH SOL UD 3ML (DUONEB) NEB SCH ×2 (07:12→15:24)
[2023-07-23 07:39] VITALS: BP 125/61; TEMP 97.4; O2SAT 94
[2023-07-23] MEDS: HYDROXYCHLOROQUINE 200 MG TAB PO SCH (10:55)
[2023-07-23] MEDS: NYSTATIN 100,000 UNITS/GM TOPICAL PWD 15GM TOP SCH (10:55)
[2023-07-23] MEDS: NICOTINE 21MG/24HR 1 EA TRANSDERMAL TD SCH (10:56)
[2023-07-23] MEDS: LIDOCAINE 5% (LIDODERM) PATCH TD SCH (10:56)
[2023-07-23 11:26] VITALS: BP 127/64; TEMP 98.5; O2SAT 95
[2023-07-23 16:00] VITALS: BP 118/64; TEMP 97.9; O2SAT 93
[2023-07-23] MEDS ORDERED: LEVO1TAB40 PO (16:50)
== END 2023-07-23 17:03 | disposition left against medical advice (07) | DRG 871 ==
LOC: M ED 13:46 → EDBD 13:46 → M ED INP 18:18 → M ICU 21:32 → M PCU 07-22 17:03
PROVIDERS: ADMIT Internal Medicine Pulmonary Disease; ATTEND Internal Medicine Pulmonary Disease
PROC: 30233N1 Transfusion of Nonautologous Red Blood Cells into Peripheral Vein, Percutaneous Approach (ICD-10-PCS; principal; 2023-07-22)
DX: A41.9 Sepsis, unspecified organism (principal); R65.21 Severe sepsis with septic shock; N39.0 Urinary tract infection, site not specified; E87.20 Acidosis, unspecified; N17.9 Acute kidney failure, unspecified; M62.82 Rhabdomyolysis; E87.1 Hypo-osmolality and hyponatremia; E11.9 Type 2 diabetes mellitus without complications; I10 Essential (primary) hypertension; E03.9 Hypothyroidism, unspecified; K27.9 Peptic ulcer, site unspecified, unspecified as acute or chronic, without hemorrhage or perforation; D53.9 Nutritional anemia, unspecified; F32.A Depression, unspecified; M54.9 Dorsalgia, unspecified; G89.29 Other chronic pain; F17.200 Nicotine dependence, unspecified, uncomplicated; M06.9 Rheumatoid arthritis, unspecified; J44.9 Chronic obstructive pulmonary disease, unspecified; J45.909 Unspecified asthma, uncomplicated; M10.9 Gout, unspecified; E78.5 Hyperlipidemia, unspecified; B96.1 Klebsiella pneumoniae [K. pneumoniae] as the cause of diseases classified elsewhere; M19.90 Unspecified osteoarthritis, unspecified site; R11.2 Nausea with vomiting, unspecified; B36.9 Superficial mycosis, unspecified; K21.9 Gastro-esophageal reflux disease without esophagitis; E87.5 Hyperkalemia; R91.8 Other nonspecific abnormal finding of lung field; Z90.49 Acquired absence of other specified parts of digestive tract; Z90.79 Acquired absence of other genital organ(s); Z96.611 Presence of right artificial shoulder joint; Z96.612 Presence of left artificial shoulder joint; Z79.890 Hormone replacement therapy; Z79.899 Other long term (current) drug therapy; Z88.5 Allergy status to narcotic agent; Z88.6 Allergy status to analgesic agent; Z88.8 Allergy status to other drugs, medicaments and biological substances; Z20.822 Contact with and (suspected) exposure to COVID-19

== ENCOUNTER 2023-09-26 16:28 | Inpatient (IN) | payer MEDICARE, OTHER ==
[~2023-09-26] VITALS: Ht 149.9 cm; Wt 59.5 kg
[2023-09-26] VITALS (11 sets, daily range): BP systolic 125–157; BP diastolic 58–69; TEMP 98; O2SAT 96–99
[~2023-09-26 16:28] MED LIST changes: +ASCO500T PO; +LEVO1TAB40 PO
[2023-09-26 17:40] LABS: BASO # 0.1 10^3/uL (0.0-0.2); BASO % 0.5 % (0.0-1.0); EOS # 0.2 10^3/uL (0.0-0.5); EOS % 1.7 % (0.0-3.0); HEMATOCRIT 30.4 % (36.0-47.0); HEMOGLOBIN 9.8 g/dl (12.0-15.5); LYMPH # 1.4 10^3/uL (1.5-5.0); LYMPH % 10.8 % (24.0-44.0); MEAN CORPUSCULAR HEMOGLOBIN 36.4 pg (27.0-33.0); MEAN CORPUSCULAR HGB CONC 32.2 g/dl (32.0-36.5); MONO # 1.4 10^3/uL (0.0-0.8); MONO % 10.6 % (2.0-8.0); NEUTROPHILS # 9.9 10^3/uL (1.5-8.5); PLATELET COUNT, AUTOMATED 216 10^3/uL (150-450); RED BLOOD COUNT 2.69 10^6/uL (4.00-5.40)
[2023-09-26] MEDS ORDERED: TRANEXAMIC ACID INJection 1,000 MG in NS 100 ML IV ONE (17:40)
[2023-09-26] MEDS ORDERED: ISOVUE-370 76% 100ML VIAL As Ordered ONE (17:43)
[2023-09-26 17:56] LABS: CK-MB VALUE MASS < 1.0 NG/ML (<3.6); LIPASE 56 U/L (12-53)
[2023-09-26 17:57] LABS: ETHYL ALCOHOL (ETHANOL) < 0.003 % (0.000-0.010)
[2023-09-26 17:58] LABS: AMYLASE 32 U/L (30-118); CPK CREATINE PHOSPHOKINASE 28 U/L (34-145); MB/CK RELATIVE INDEX 3.57 (< OR =4)
[2023-09-26 17:59] LABS: ALBUMIN 2.8 G/DL (3.2-5.2); ALKALINE PHOSPHATASE 60 U/L (46-116); ALT/SGPT < 9 U/L (7.0-40); AST/SGOT 20 U/L (<34); BILIRUBIN,DIRECT < 0.1 MG/DL (<0.4); BILIRUBIN,TOTAL 0.2 MG/DL (0.3-1.2); BLOOD UREA NITROGEN 32 MG/DL (9-23); CALCIUM LEVEL 7.9 MG/DL (8.3-10.6); CARBON DIOXIDE LEVEL 18 MMOL/L (20-31); CHLORIDE LEVEL 112 MMOL/L (98-107); CREATININE FOR GFR 1.44 MG/DL (0.55-1.30); GLOMERULAR FILTRATION RATE 38.8 (>45); GLUCOSE, FASTING 99 MG/DL (74-106); POTASSIUM SERUM 5.1 MMOL/L (3.5-5.1); SODIUM LEVEL 136 MMOL/L (136-145); TOTAL PROTEIN 5.4 G/DL (5.7-8.2)
[2023-09-26 18:05] LABS: INR 1.16; PARTIAL THROMBOPLASTIN TIME 37.7 SECONDS (24.8-34.2); PROTHROMBIN TIME 14.5 SECONDS (12.5-14.5)
[2023-09-26 18:06] LABS: ABG BASE EXCESS -8.4 (-2.0-2.0); ABG HCO3 16.8 MMOL/L (22.0-26.0); ABG PARTIAL PRESSURE CO2 33.6 mmHg (35.0-45.0); ABG PARTIAL PRESSURE O2 101.8 mmHg (75.0-100.0); ABG STANDARD HCO3 17.6 MMOL/L. (22.0-26.0); ABG TOTAL CO2 17.9 MMOL/L (23.0-31.0); ABG pH (ARTERIAL) 7.318 UNITS (7.350-7.450)
[2023-09-26 18:37] LABS: RSV AMPLIFICATION NEGATIVE (NEGATIVE)
[2023-09-26] MEDS: LIDOCAINE 2% 5ML JELLY UROJET TOP ONE (18:45)
[2023-09-26] MEDS: CALCIUM GLUCONATE 1,000MG/10ML VIAL (100MG/ML) IV ONE (18:47)
[2023-09-26 19:00] LABS: CK-MB VALUE MASS < 1.0 NG/ML (<3.6)
[2023-09-26 19:02] LABS: APPEARANCE, URINE CLOUDY (CLEAR); BACTERIA, URINE AUTO 3+ (NEGATIVE); BILIRUBIN, URINE AUTO NEGATIVE (NEGATIVE); BLOOD, URINE BLOOD NEGATIVE (NEGATIVE); COLOR, URINE AMBER (YELLOW); GLUCOSE, URINE (UA) AUTO NEGATIVE (NEGATIVE); KETONE, URINE AUTO NEGATIVE (NEGATIVE); LEUKOCYTE ESTERASE, URINE AUTO 3+ (NEGATIVE); NITRITE, URINE AUTO NEGATIVE (NEGATIVE); PROTEIN, URINE AUTO 1+ mg/dL (NEGATIVE); RBC, URINE AUTO 3 /HPF (0-3); SQUAMOUS EPITHELIAL CELL UR AU 0 /HPF (0-6); UROBILINOGEN, URINE AUTO 0.2 mg/dL (0.0-2.0); WBC, URINE AUTO TNTC /HPF (0-3)
[2023-09-26 19:03] LABS: CPK CREATINE PHOSPHOKINASE 22 U/L (34-145); MB/CK RELATIVE INDEX 4.54 (< OR =4)
[2023-09-26 19:22] LABS: AMPHETAMINES LEVEL URINE NEGATIVE (NEGATIVE); BARBITURATES URINE NEGATIVE (NEGATIVE); CANNABINOIDS URINE NEGATIVE (NEGATIVE); COCAINE METABOLITE URINE NEGATIVE (NEGATIVE); METHADONE URINE NEGATIVE (NEGATIVE); OPIATES URINE NEGATIVE (NEGATIVE); PHENCYCLIDINE URINE NEGATIVE (NEGATIVE)
[2023-09-26 19:23] LABS: BENZODIAZEPINES URINE NEGATIVE (NEGATIVE)
[2023-09-26] MEDS: NS IV ONE (19:33)
[2023-09-26] MEDS: NOREPINEPHRINE 4MG IN D5 250ML 4 MG in IV 1 EA IV SCH (19:33)
[2023-09-26 19:50] LABS: PROCALCITONIN 0.12 ng/ml
[2023-09-26] MEDS: PIPERACILLIN/TAZOBACTAM SOD 4.5 GM in D5W MINI-BAG PLUS 50 ML IV ONE (19:59)
[2023-09-26] MEDS ORDERED: ALBUTEROL 90 MCG/ACT 8GM HFA INHALER INH PRN (20:40)
[2023-09-26] MEDS ORDERED: HEPARIN SOD (PORCINE) 5000UNITS/ML 1ML VIAL/SYRINGE SC SCH (20:40)
[2023-09-26] MEDS: LR 1,000 ML IV SCH (20:59)
[2023-09-26] MEDS ORDERED: HOME MED LIST COMPLETE! XX SCH (23:40)
[2023-09-27] VITALS (57 sets, daily range): BP systolic 86–138; BP diastolic 47–70; TEMP 97.3–98.7; O2SAT 93–98
[2023-09-27] MEDS: PIPERACILLIN/TAZOBACTAM SOD 4.5 GM in D5W MINI-BAG PLUS 50 ML IV SCH (03:01)
[2023-09-27 04:46] LABS: HEMATOCRIT 37.5 % (36.0-47.0); MEAN CORPUSCULAR HEMOGLOBIN 35.5 pg (27.0-33.0); MEAN CORPUSCULAR HGB CONC 33.3 g/dl (32.0-36.5); MEAN CORPUSCULAR VOLUME 106.5 fl (80.0-96.0); PLATELET COUNT, AUTOMATED 200 10^3/uL (150-450); RED BLOOD COUNT 3.52 10^6/uL (4.00-5.40); WHITE BLOOD COUNT 13.6 10^3/uL (4.0-10.0)
[2023-09-27] MEDS ORDERED: IPRATROPIUM 0.5MG/ALBUTEROL 2.5MG INH SOL UD 3ML (DUONEB) INH PRN (04:50)
[2023-09-27] MEDS ORDERED: PROMETHAZINE 25 MG TAB PO PRN (04:50)
[2023-09-27] MEDS ORDERED: NITROGLYCERIN 0.4MG SUBL TABLET SL PRN (04:50)
[2023-09-27 04:59] LABS: HEMOGLOBIN 12.5 g/dl (12.0-15.5)
[2023-09-27 05:18] LABS: ALBUMIN 2.4 G/DL (3.2-5.2); ALKALINE PHOSPHATASE 53 U/L (46-116); ALT/SGPT < 9 U/L (7.0-40); AST/SGOT 15 U/L (<34); BILIRUBIN,TOTAL 0.4 MG/DL (0.3-1.2); BLOOD UREA NITROGEN 24 MG/DL (9-23); CALCIUM LEVEL 7.9 MG/DL (8.3-10.6); CARBON DIOXIDE LEVEL 18 MMOL/L (20-31); CHLORIDE LEVEL 113 MMOL/L (98-107); CREATININE FOR GFR 1.13 MG/DL (0.55-1.30); GLOMERULAR FILTRATION RATE 51.3 (>45); GLUCOSE, FASTING 107 MG/DL (74-106); POTASSIUM SERUM 4.7 MMOL/L (3.5-5.1); SODIUM LEVEL 138 MMOL/L (136-145); TOTAL PROTEIN 4.9 G/DL (5.7-8.2)
[2023-09-27] MEDS ORDERED: PILL CUTTER 1 EACH XX PRN (05:50)
[2023-09-27] MEDS: LEVOTHYROXINE 150MCG TABLET (0.15MG) PO SCH (06:01)
[2023-09-27] MEDS: LEVOTHYROXINE 25MCG TABLET (0.025MG) PO SCH (06:01)
[2023-09-27] MEDS: ADVAIR HFA 115/21MCG INHALER INH SCH (08:02)
[2023-09-27] MEDS: PANTOPRAZOLE 40MG TAB (PROTONIX) PO SCH (09:13)
[2023-09-27] MEDS: sulfaSALAzine 500 MG TABEC PO SCH (09:13)
[2023-09-27] MEDS: HYDROXYCHLOROQUINE 200 MG TAB PO SCH (09:13)
[2023-09-27] MEDS: ESCITALOPRAM OXALATE 10 MG TAB (LEXAPRO) PO SCH (09:13)
[2023-09-27] MEDS: SUCRALFATE 1 GM TAB PO SCH (09:13)
[2023-09-27] MEDS: ASCORBIC ACID 500 MG TAB PO SCH (09:13)
[2023-09-27] MEDS: GABAPENTIN 300 MG CAP PO SCH (09:13)
[2023-09-27] MEDS: FERROUS GLUCONATE 324 MG TAB PO SCH (09:14)
[2023-09-27] MEDS: HEPARIN SOD (PORCINE) 5000UNITS/ML 1ML VIAL/SYRINGE SC SCH (09:14)
[2023-09-27] MEDS: NOREPINEPHRINE 4MG IN D5 250ML 4 MG in IV 1 EA IV SCH (09:44)
[2023-09-27] MEDS: NICOTINE 14 MG/24 HR TRANSDERMAL TD SCH (13:45)
[2023-09-27] MEDS ORDERED: ACETAMINOPHEN TAB 650MG DOSE (2X325MG) PO PRN (14:00)
[2023-09-27] MEDS: traMADol 50 MG TAB PO PRN (21:21)
[2023-09-28] VITALS (8 sets, daily range): BP systolic 100–128; BP diastolic 52–79; TEMP 97.8–98.9; O2SAT 92–98
[2023-09-28 04:52] LABS: BASO % 0.3 % (0.0-1.0); EOS # 0.2 10^3/uL (0.0-0.5); EOS % 2.3 % (0.0-3.0); HEMATOCRIT 32.4 % (36.0-47.0); HEMOGLOBIN 10.8 g/dl (12.0-15.5); LYMPH # 1.5 10^3/uL (1.5-5.0); LYMPH % 15.4 % (24.0-44.0); MEAN CORPUSCULAR HEMOGLOBIN 35.3 pg (27.0-33.0); MEAN CORPUSCULAR HGB CONC 33.3 g/dl (32.0-36.5); MEAN CORPUSCULAR VOLUME 105.9 fl (80.0-96.0); MONO # 1.3 10^3/uL (0.0-0.8); MONO % 13.7 % (2.0-8.0); NEUTROPHILS # 6.5 10^3/uL (1.5-8.5); NEUTROPHILS % 67.8 % (36.0-66.0); PLATELET COUNT, AUTOMATED 182 10^3/uL (150-450); RED BLOOD COUNT 3.06 10^6/uL (4.00-5.40); WHITE BLOOD COUNT 9.6 10^3/uL (4.0-10.0)
[2023-09-28 05:18] LABS: ALBUMIN 1.9 G/DL (3.2-5.2); ALKALINE PHOSPHATASE 46 U/L (46-116); ALT/SGPT < 9 U/L (7.0-40); AST/SGOT 11 U/L (<34); BILIRUBIN,TOTAL 0.2 MG/DL (0.3-1.2); BLOOD UREA NITROGEN 18 MG/DL (9-23); CALCIUM LEVEL 7.4 MG/DL (8.3-10.6); CARBON DIOXIDE LEVEL 20 MMOL/L (20-31); CHLORIDE LEVEL 115 MMOL/L (98-107); CREATININE FOR GFR 0.89 MG/DL (0.55-1.30); GLOMERULAR FILTRATION RATE > 60.0 (>45); GLUCOSE, FASTING 85 MG/DL (74-106); MAGNESIUM LEVEL 1.3 MG/DL (1.8-2.4); POTASSIUM SERUM 3.9 MMOL/L (3.5-5.1); SODIUM LEVEL 142 MMOL/L (136-145); TOTAL PROTEIN 4.1 G/DL (5.7-8.2)
[2023-09-28] MEDS: MAG SULF 1GM/100ML (MAG RUN) 1 GM in IV 1 EA IV SCH ×2 (06:41→08:45)
[2023-09-28] MEDS: CEFDINIR 300 MG CAP (OMNICEF) PO SCH (08:45)
[2023-09-29] VITALS: BP 99/53; TEMP 99.4; O2SAT 97
[2023-09-29 02:00] VITALS: BP 95/51; O2SAT 95
[2023-09-29 04:00] VITALS: BP 103/56; TEMP 97.7; O2SAT 96
[2023-09-29 06:00] VITALS: BP 114/55; O2SAT 93
[2023-09-29] MEDS: COSYNTROPIN 0.25 MG/ML 1ML VIAL IV ONE (06:05)
[2023-09-29 06:37] LABS: BASO % 0.4 % (0.0-1.0); EOS # 0.3 10^3/uL (0.0-0.5); EOS % 3.6 % (0.0-3.0); HEMATOCRIT 32.2 % (36.0-47.0); HEMOGLOBIN 10.5 g/dl (12.0-15.5); LYMPH # 1.5 10^3/uL (1.5-5.0); LYMPH % 19.4 % (24.0-44.0); MEAN CORPUSCULAR HEMOGLOBIN 34.8 pg (27.0-33.0); MEAN CORPUSCULAR HGB CONC 32.6 g/dl (32.0-36.5); MEAN CORPUSCULAR VOLUME 106.6 fl (80.0-96.0); MONO # 0.8 10^3/uL (0.0-0.8); NEUTROPHILS # 4.9 10^3/uL (1.5-8.5); NEUTROPHILS % 65.2 % (36.0-66.0); PLATELET COUNT, AUTOMATED 204 10^3/uL (150-450); RED BLOOD COUNT 3.02 10^6/uL (4.00-5.40); WHITE BLOOD COUNT 7.6 10^3/uL (4.0-10.0)
[2023-09-29 06:59] LABS: BLOOD UREA NITROGEN 11 MG/DL (9-23); CALCIUM LEVEL 7.6 MG/DL (8.3-10.6); CARBON DIOXIDE LEVEL 20 MMOL/L (20-31); CHLORIDE LEVEL 117 MMOL/L (98-107); CREATININE FOR GFR 0.68 MG/DL (0.55-1.30); GLOMERULAR FILTRATION RATE > 60.0 (>45); GLUCOSE, FASTING 76 MG/DL (74-106); MAGNESIUM LEVEL 2.1 MG/DL (1.8-2.4); POTASSIUM SERUM 4.2 MMOL/L (3.5-5.1); SODIUM LEVEL 143 MMOL/L (136-145)
[2023-09-29 08:00] VITALS: BP 114/59; TEMP 97.9; O2SAT 93
[2023-09-29 09:00] VITALS: BP 127/63; O2SAT 93
[2023-09-29] MEDS ORDERED: LOPERAMIDE 2 MG CAPLET PO PRN ×2 (10:40→10:55)
[2023-09-29] MEDS ORDERED: CHOL4PW PO (11:30)
[2023-09-29] MEDS ORDERED: CEFD300CAP PO (11:30)
[2023-09-29] MEDS ORDERED: LOPE2CA PO (11:30)
[2023-09-29] MEDS: FIBER-CON 625 MG TAB PO SCH (12:21)
[2023-09-29] MEDS: LOPERAMIDE 2 MG CAPLET PO ONE (12:22)
[2023-09-29] MEDS ORDERED: CHOLESTYRAMINE 4GM PWD PKT PO SCH (21:00)
== END 2023-09-29 15:25 | disposition home health service (06) | DRG 872 ==
LOC: M ED 16:28 → M ED INP 20:37 → ENRESERV 20:56 → M ICU 21:44
PROVIDERS: ADMIT Internal Medicine; ATTEND Internal Medicine
PROC: 30233N1 Transfusion of Nonautologous Red Blood Cells into Peripheral Vein, Percutaneous Approach (ICD-10-PCS; principal; 2023-09-26)
DX: R57.1 Hypovolemic shock (principal); N17.9 Acute kidney failure, unspecified; E11.9 Type 2 diabetes mellitus without complications; I10 Essential (primary) hypertension; E03.9 Hypothyroidism, unspecified; K27.9 Peptic ulcer, site unspecified, unspecified as acute or chronic, without hemorrhage or perforation; F32.A Depression, unspecified; M06.9 Rheumatoid arthritis, unspecified; J44.9 Chronic obstructive pulmonary disease, unspecified; J45.909 Unspecified asthma, uncomplicated; M10.9 Gout, unspecified; D69.1 Qualitative platelet defects; E78.5 Hyperlipidemia, unspecified; D64.9 Anemia, unspecified; I25.10 Atherosclerotic heart disease of native coronary artery without angina pectoris; R19.7 Diarrhea, unspecified; K21.9 Gastro-esophageal reflux disease without esophagitis; E83.42 Hypomagnesemia; S20.211A Contusion of right front wall of thorax, initial encounter; S70.01XA Contusion of right hip, initial encounter; W19.XXXA Unspecified fall, initial encounter; Z90.49 Acquired absence of other specified parts of digestive tract; Z90.79 Acquired absence of other genital organ(s); Z96.619 Presence of unspecified artificial shoulder joint; Z79.890 Hormone replacement therapy; Z79.899 Other long term (current) drug therapy; Z88.5 Allergy status to narcotic agent; Z88.6 Allergy status to analgesic agent; Z88.8 Allergy status to other drugs, medicaments and biological substances; Z11.52 Encounter for screening for COVID-19; Y92.009 Unspecified place in unspecified non-institutional (private) residence as the place of occurrence of the external cause

== ENCOUNTER → 2023-10-05 | Outpatient (REF) | payer MEDICARE, OTHER ==
[~2023-10-05] MED LIST changes: +CHOL4PW PO; +LOPE2CA PO
[2023-10-05 18:21] LABS: BASO # 0.1 10^3/uL (0.0-0.2); BASO % 0.6 % (0.0-1.0); EOS # 0.4 10^3/uL (0.0-0.5); EOS % 3.5 % (0.0-3.0); HEMOGLOBIN 12.6 g/dl (12.0-15.5); LYMPH % 19.3 % (24.0-44.0); MEAN CORPUSCULAR HEMOGLOBIN 35.8 pg (27.0-33.0); MEAN CORPUSCULAR HGB CONC 32.3 g/dl (32.0-36.5); MEAN CORPUSCULAR VOLUME 110.8 fl (80.0-96.0); MONO # 1.3 10^3/uL (0.0-0.8); NEUTROPHILS # 6.8 10^3/uL (1.5-8.5); NEUTROPHILS % 64.2 % (36.0-66.0); PLATELET COUNT, AUTOMATED 327 10^3/uL (150-450); RED BLOOD COUNT 3.52 10^6/uL (4.00-5.40); WHITE BLOOD COUNT 10.6 10^3/uL (4.0-10.0)
[2023-10-05 18:46] LABS: ALBUMIN 3.1 G/DL (3.2-5.2); ALKALINE PHOSPHATASE 60 U/L (46-116); ALT/SGPT < 9 U/L (7.0-40); AST/SGOT 20 U/L (<34); BILIRUBIN,TOTAL < 0.2 MG/DL (0.3-1.2); BLOOD UREA NITROGEN 11 MG/DL (9-23); CALCIUM LEVEL 8.6 MG/DL (8.3-10.6); CARBON DIOXIDE LEVEL 24 MMOL/L (20-31); CHLORIDE LEVEL 112 MMOL/L (98-107); CREATININE FOR GFR 0.57 MG/DL (0.55-1.30); GLOMERULAR FILTRATION RATE > 60.0 (>45); GLUCOSE, FASTING 67 MG/DL (74-106); MAGNESIUM LEVEL 1.7 MG/DL (1.8-2.4); POTASSIUM SERUM 4.9 MMOL/L (3.5-5.1); SODIUM LEVEL 142 MMOL/L (136-145); TOTAL PROTEIN 5.7 G/DL (5.7-8.2)
[2023-10-05 18:50] LABS: FERRITIN 395.4 NG/ML (7.3-270.7)
== END ==
LOC: M SFHCPLAZ 17:33
PROVIDERS: ATTEND Physician Assistant Medical
DX: D50.9 Iron deficiency anemia, unspecified (principal); N30.90 Cystitis, unspecified without hematuria; E83.42 Hypomagnesemia; K52.9 Noninfective gastroenteritis and colitis, unspecified

== ENCOUNTER 2023-10-14 12:55 | Emergency (ER) | payer MEDICARE ==
[~2023-10-14] VITALS: Ht 149.9 cm; Wt 56.4 kg
[2023-10-14] MEDS ORDERED: CARV3.12 (13:18)
[2023-10-14] MEDS ORDERED: LISI20TA33 (13:18)
[2023-10-14 14:47] LABS: BASO # 0.1 10^3/uL (0.0-0.2); BASO % 0.5 % (0.0-1.0); EOS # 0.2 10^3/uL (0.0-0.5); EOS % 2.5 % (0.0-3.0); HEMATOCRIT 39.7 % (36.0-47.0); LYMPH # 1.8 10^3/uL (1.5-5.0); LYMPH % 19.1 % (24.0-44.0); MEAN CORPUSCULAR HEMOGLOBIN 35.8 pg (27.0-33.0); MEAN CORPUSCULAR HGB CONC 32.7 g/dl (32.0-36.5); MEAN CORPUSCULAR VOLUME 109.4 fl (80.0-96.0); MONO # 1.1 10^3/uL (0.0-0.8); MONO % 11.9 % (2.0-8.0); NEUTROPHILS # 6.1 10^3/uL (1.5-8.5); NEUTROPHILS % 65.8 % (36.0-66.0); PLATELET COUNT, AUTOMATED 199 10^3/uL (150-450); RED BLOOD COUNT 3.63 10^6/uL (4.00-5.40); WHITE BLOOD COUNT 9.2 10^3/uL (4.0-10.0)
[2023-10-14 14:59] LABS: INR 1.03; PARTIAL THROMBOPLASTIN TIME 30.6 SECONDS (24.8-34.2); PROTHROMBIN TIME 13.2 SECONDS (12.5-14.5)
[2023-10-14 15:15] LABS: BLOOD UREA NITROGEN 5 MG/DL (9-23); CALCIUM LEVEL 8.6 MG/DL (8.3-10.6); CARBON DIOXIDE LEVEL 26 MMOL/L (20-31); CHLORIDE LEVEL 112 MMOL/L (98-107); CREATININE FOR GFR 0.56 MG/DL (0.55-1.30); GLOMERULAR FILTRATION RATE > 60.0 (>45); GLUCOSE, FASTING 80 MG/DL (74-106); POTASSIUM SERUM 4.2 MMOL/L (3.5-5.1); SODIUM LEVEL 142 MMOL/L (136-145)
[2023-10-14] MEDS: NITROFURANTOIN (MACROBID) 100 MG CAP PO ONE (16:23)
[2023-10-14] MEDS ORDERED: MACR100C43 PO (17:37)
[2023-10-14 18:06] VITALS: BP 180/65; TEMP 97.6; O2SAT 98
== END 2023-10-14 18:01 | disposition home or self-care (01) ==
LOC: EDBD 12:55 → M ED 12:55
DX: N39.0 Urinary tract infection, site not specified (principal); N95.0 Postmenopausal bleeding; Z90.710 Acquired absence of both cervix and uterus; Z79.899 Other long term (current) drug therapy; Z88.5 Allergy status to narcotic agent; Z88.8 Allergy status to other drugs, medicaments and biological substances

== ENCOUNTER → 2023-11-24 | Outpatient (CLI) | payer MEDICARE, MEDICAID ==
[~2023-11-24] MED LIST changes: +CARV3.12; +LISI20TA33; +MACR100C43 PO
== END ==
LOC: M PLALAB 09:59
PROVIDERS: ATTEND Physician Assistant Medical
DX: M25.511 Pain in right shoulder (principal); E03.9 Hypothyroidism, unspecified; D50.9 Iron deficiency anemia, unspecified; E83.42 Hypomagnesemia; N17.9 Acute kidney failure, unspecified; I10 Essential (primary) hypertension; W19.XXXS Unspecified fall, sequela; Y99.9 Unspecified external cause status

== ENCOUNTER → 2023-12-22 | Outpatient (CLI) | payer MEDICARE, MEDICAID ==
[2023-12-22 15:28] LABS: ALBUMIN 3.7 G/DL (3.2-5.2); ALKALINE PHOSPHATASE 110 U/L (46-116); ALT/SGPT < 9 U/L (7.0-40); AST/SGOT 16 U/L (<34); BILIRUBIN,TOTAL 0.2 MG/DL (0.3-1.2); BLOOD UREA NITROGEN 16 MG/DL (9-23); CALCIUM LEVEL 9.3 MG/DL (8.3-10.6); CARBON DIOXIDE LEVEL 24 MMOL/L (20-31); CHLORIDE LEVEL 112 MMOL/L (98-107); CREATININE FOR GFR 0.76 MG/DL (0.55-1.30); GLOMERULAR FILTRATION RATE > 60.0 (>45); GLUCOSE, FASTING 76 MG/DL (74-106); IRON (FE) 60 UG/DL (50-170); MAGNESIUM LEVEL 1.9 MG/DL (1.8-2.4); POTASSIUM SERUM 4.5 MMOL/L (3.5-5.1); SODIUM LEVEL 141 MMOL/L (136-145); TOTAL PROTEIN 6.2 G/DL (5.7-8.2)
[2023-12-22 15:30] LABS: FERRITIN 296.4 NG/ML (7.3-270.7); THYROID STIMULATING HORMONE 9.588 uIU/ML (0.55-4.78)
== END ==
LOC: M PLALAB 09:06
PROVIDERS: ATTEND Physician Assistant Medical
DX: E03.9 Hypothyroidism, unspecified (principal); D50.9 Iron deficiency anemia, unspecified; E83.42 Hypomagnesemia; N17.9 Acute kidney failure, unspecified; I10 Essential (primary) hypertension

== ENCOUNTER 2025-01-21 17:26 | Inpatient (IN) | payer MEDICARE ==
[~2025-01-21] VITALS: Ht 149.9 cm; Wt 67.7 kg
[~2025-01-21 17:26] MED LIST changes: +GABA-1172 PO; -GABA-282 PO; +LEVO75TAB PO; +LOPE2CAP PO; +SODI325T9 PO
[2025-01-21] MEDS ORDERED: ISOVUE-370 76% 100 ML VIAL As Ordered ONE (22:20)
[2025-01-21] MEDS: ONDANSETRON 4MG 2ML VIAL IV ONE (22:24)
[2025-01-21 22:32] LABS: BASO # 0.0 10^3/uL (0.0-0.2); BASO % 0.1 % (0.0-1.0); EOS # 0.0 10^3/uL (0.0-0.5); EOS % 0.1 % (0.0-3.0); LYMPH # 1.9 10^3/uL (1.5-5.0); LYMPH % 19.1 % (24.0-44.0); MONO # 0.8 10^3/uL (0.0-0.8); MONO % 8.0 % (2.0-8.0); NEUTROPHILS # 7.1 10^3/uL (1.5-8.5); NEUTROPHILS % 71.8 % (36.0-66.0); PLATELET COUNT, AUTOMATED 233 10^3/uL (150-450)
[2025-01-21 23:01] LABS: FREE T4 0.36 NG/DL (0.89-1.76)
[2025-01-21 23:10] LABS: ALT/SGPT 41 U/L (7.0-40); AST/SGOT 109 U/L (<34); CALCIUM LEVEL 7.6 MG/DL (8.3-10.6); CARBON DIOXIDE LEVEL 26 MMOL/L (20-31); CHLORIDE LEVEL 99 MMOL/L (98-107); CREATININE FOR GFR 0.65 MG/DL (0.55-1.30); GLOMERULAR FILTRATION RATE > 90.0 (>45); MAGNESIUM LEVEL 1.7 MG/DL (1.8-2.4); POTASSIUM SERUM 2.6 MMOL/L (3.5-5.1); SODIUM LEVEL 141 MMOL/L (136-145)
[2025-01-22] MEDS: KETOROLAC 30 MG/ML 1 ML VIAL IV ONE (00:03)
[2025-01-22] MEDS: KCL 10MEQ/100ML SWI (KRUN) 10 MEQ in IV 1 EA IV ONE (00:05)
[2025-01-22] MEDS: NS (Normal Saline) 0.9% 1,000 ML IV SCH (00:40)
[2025-01-22] MEDS ORDERED: MAALOX 30 ML SUSP *UDC PO PRN (05:20)
[2025-01-22] MEDS ORDERED: MOM 30 ML SUSPENSION UDC PO PRN (05:20)
[2025-01-22] MEDS ORDERED: ACETAMINOPHEN 325 MG TAB PO PRN (05:20)
[2025-01-22 05:51] LABS: CALCIUM LEVEL 7.2 MG/DL (8.3-10.6); CARBON DIOXIDE LEVEL 26 MMOL/L (20-31); CHLORIDE LEVEL 98 MMOL/L (98-107); CREATININE FOR GFR 0.60 MG/DL (0.55-1.30); GLOMERULAR FILTRATION RATE > 90.0 (>45); POTASSIUM SERUM 2.4 MMOL/L (3.5-5.1); SODIUM LEVEL 139 MMOL/L (136-145)
[2025-01-22] MEDS: KCL 10MEQ/100ML SWI (KRUN) 10 MEQ in IV 1 EA IV SCH ×2 (07:06→11:49)
[2025-01-22] MEDS ORDERED: LEVO125T4 PO (07:17)
[2025-01-22] MEDS ORDERED: HOME MED LIST COMPLETE! XX SCH (07:20)
[2025-01-22 07:25] LABS: CALCIUM LEVEL 7.2 MG/DL (8.3-10.6); CARBON DIOXIDE LEVEL 27 MMOL/L (20-31); CHLORIDE LEVEL 98 MMOL/L (98-107); CREATININE FOR GFR 0.62 MG/DL (0.55-1.30); GLOMERULAR FILTRATION RATE > 90.0 (>45); POTASSIUM SERUM 2.2 MMOL/L (3.5-5.1); SODIUM LEVEL 140 MMOL/L (136-145)
[2025-01-22 08:00] VITALS: BP 153/71; TEMP 97.9; O2SAT 97
[2025-01-22] MEDS: KCL 40MEQ in NS 1000ML 1,000 ML IV SCH (08:46)
[2025-01-22] MEDS: HEPARIN SOD 5000 UNITS/ML 1 ML VIAL/SYRINGE SC SCH (08:49)
[2025-01-22] MEDS: PANTOPRAZOLE 40MG VIAL IV SCH (08:49)
[2025-01-22] MEDS: DOCUSATE SODIUM 100 MG CAPSULE PO SCH (08:49)
[2025-01-22] MEDS: ONDANSETRON 4MG 2ML VIAL IV PRN (08:49)
[2025-01-22] MEDS: GABAPENTIN 300 MG CAP PO SCH (08:49)
[2025-01-22] MEDS: ESCITALOPRAM OXALATE 10 MG TABLET PO SCH (08:50)
[2025-01-22] MEDS: MAG SULF 1GM/100ML (MAG RUN) 1 GM in IV 1 EA IV ONE (08:50)
[2025-01-22] MEDS: FOLIC ACID 1 MG TAB PO SCH (08:50)
[2025-01-22] MEDS ORDERED: PANTOPRAZOLE 40MG VIAL IV SCH (09:00)
[2025-01-22] MEDS: LEVOTHYROXINE 100 MCG (0.1 MG) 5ML SDV PF (SOLUTION FORM) IV SCH (09:29)
[2025-01-22] MEDS: SUCRALFATE SUSP 1GM/10ML UD PO SCH (11:49)
[2025-01-22 12:00] VITALS: BP 127/58; TEMP 97.6; O2SAT 97
[2025-01-22] MEDS: KETOROLAC 30 MG/ML 1 ML VIAL IV SCH (12:20)
[2025-01-22 15:37] VITALS: BP 122/54; TEMP 97.5; O2SAT 98
[2025-01-22 19:33] VITALS: BP 110/55; TEMP 97.5; O2SAT 97
[2025-01-22 19:55] LABS: MAGNESIUM LEVEL 1.9 MG/DL (1.8-2.4); POTASSIUM SERUM 3.1 MMOL/L (3.5-5.1)
[2025-01-22] MEDS: POTASSIUM CHLORIDE 10MEQ SR TABLET PO SCH (20:12)
[2025-01-23] VITALS (7 sets, daily range): BP systolic 88–116; BP diastolic 48–64; TEMP 97.3–98.6; O2SAT 97–98
[2025-01-23] MEDS: NS (Normal Saline) 0.9% 1,000 ML IV ONE (06:12)
[2025-01-23 06:47] LABS: BASO # 0.0 10^3/uL (0.0-0.2); BASO % 0.1 % (0.0-1.0); EOS # 0.1 10^3/uL (0.0-0.5); EOS % 0.9 % (0.0-3.0); LYMPH # 2.5 10^3/uL (1.5-5.0); LYMPH % 29.9 % (24.0-44.0); MONO # 0.6 10^3/uL (0.0-0.8); MONO % 7.2 % (2.0-8.0); NEUTROPHILS # 5.1 10^3/uL (1.5-8.5); NEUTROPHILS % 61.0 % (36.0-66.0); PLATELET COUNT, AUTOMATED 163 10^3/uL (150-450)
[2025-01-23 07:20] LABS: ALT/SGPT 25.0 U/L (7.0-40); AST/SGOT 67.0 U/L (<34); CALCIUM LEVEL 7.3 MG/DL (8.3-10.6); CARBON DIOXIDE LEVEL 23.0 MMOL/L (20-31); CHLORIDE LEVEL 107.0 MMOL/L (98-107); CREATININE FOR GFR 0.92 MG/DL (0.55-1.30); GLOMERULAR FILTRATION RATE 68.3 (>45); MAGNESIUM LEVEL 1.8 MG/DL (1.8-2.4); POTASSIUM SERUM 3.5 MMOL/L (3.5-5.1); SODIUM LEVEL 142.0 MMOL/L (136-145)
[2025-01-23] MEDS: PANTOPRAZOLE 40MG TAB PO SCH (20:06)
[2025-01-24 03:48] VITALS: BP 102/52; TEMP 98.2; O2SAT 98
[2025-01-24] MEDS: LEVOTHYROXINE 125 MCG TABLET (0.125 MG) PO SCH (05:38)
[2025-01-24 06:30] LABS: BASO # 0.0 10^3/uL (0.0-0.2); BASO % 0.3 % (0.0-1.0); EOS # 0.2 10^3/uL (0.0-0.5); EOS % 1.1 % (0.0-3.0); LYMPH # 2.7 10^3/uL (1.5-5.0); LYMPH % 17.3 % (24.0-44.0); MONO # 0.9 10^3/uL (0.0-0.8); MONO % 5.6 % (2.0-8.0); NEUTROPHILS # 11.5 10^3/uL (1.5-8.5); NEUTROPHILS % 74.3 % (36.0-66.0); PLATELET COUNT, AUTOMATED 138 10^3/uL (150-450)
[2025-01-24 06:54] LABS: ALT/SGPT 22.0 U/L (7.0-40); AST/SGOT 61.0 U/L (<34); CALCIUM LEVEL 7.8 MG/DL (8.3-10.6); CARBON DIOXIDE LEVEL 21.0 MMOL/L (20-31); CHLORIDE LEVEL 108.0 MMOL/L (98-107); CREATININE FOR GFR 0.86 MG/DL (0.55-1.30); GLOMERULAR FILTRATION RATE 74.0 (>45); POTASSIUM SERUM 5.4 MMOL/L (3.5-5.1); SODIUM LEVEL 138.0 MMOL/L (136-145)
[2025-01-24 09:00] VITALS: BP_SYST 109; BP_SYST 94; BP_DIAS 56; BP_DIAS 57; BP_DIAS 60
[2025-01-24] MEDS: KETOROLAC 30 MG/ML 1 ML VIAL IV PRN (09:14)
[2025-01-24] MEDS ORDERED: LEXA1TAB PO (11:16)
[2025-01-24] MEDS ORDERED: PANT40TA29 PO (11:16)
[2025-01-24] MEDS ORDERED: GABA-1172 PO (11:16)
[2025-01-24] MEDS ORDERED: FOLI1TAB11 PO (11:16)
[2025-01-24] MEDS ORDERED: LOPE2CAP PO (11:16)
[2025-01-24] MEDS ORDERED: LEVO125T4 PO (11:16)
[2025-01-24] MEDS ORDERED: POTA8CAP10 PO (11:18)
[2025-01-24 12:00] VITALS: BP 94/94; TEMP 98.6; O2SAT 98
[2025-01-24] MEDS: ACETAMINOPHEN 500 MG TAB PO SCH (16:31)
[2025-01-24 19:05] LABS: KETONE, URINE AUTO RFX NEGATIVE (NEGATIVE); LEUKOCYTE ESTERASE UR AUTO RFX 3+ (NEGATIVE); MUCUS, URINE RFX SMALL (NEGATIVE); NITRITE, URINE AUTO RFX NEGATIVE (NEGATIVE); RBC, URINE AUTO RFX 6 /HPF (0-3); SQUAM EPITHELIAL CELL UR AURFX 0 /HPF (0-6); WBC, URINE AUTO RFX 66 /HPF (0-3)
[2025-01-24 20:04] VITALS: BP 101/55; TEMP 97.5; O2SAT 98
[2025-01-24] MEDS: NAPROXEN 250 MG TAB PO SCH (20:49)
[2025-01-25 04:13] VITALS: BP 97/53; TEMP 97; O2SAT 97
[2025-01-25 06:01] LABS: BASO # 0.0 10^3/uL (0.0-0.2); BASO % 0.1 % (0.0-1.0); EOS # 0.2 10^3/uL (0.0-0.5); EOS % 1.1 % (0.0-3.0); LYMPH # 2.4 10^3/uL (1.5-5.0); LYMPH % 16.5 % (24.0-44.0); MONO # 1.0 10^3/uL (0.0-0.8); MONO % 7.3 % (2.0-8.0); NEUTROPHILS # 10.6 10^3/uL (1.5-8.5); NEUTROPHILS % 74.0 % (36.0-66.0); PLATELET COUNT, AUTOMATED 113 10^3/uL (150-450)
[2025-01-25 06:23] LABS: ALT/SGPT 17.0 U/L (7.0-40); AST/SGOT 40.0 U/L (<34); CALCIUM LEVEL 7.6 MG/DL (8.3-10.6); CARBON DIOXIDE LEVEL 23.0 MMOL/L (20-31); CHLORIDE LEVEL 108.0 MMOL/L (98-107); CREATININE FOR GFR 0.82 MG/DL (0.55-1.30); GLOMERULAR FILTRATION RATE 78.4 (>45); POTASSIUM SERUM 5.4 MMOL/L (3.5-5.1); SODIUM LEVEL 138.0 MMOL/L (136-145)
[2025-01-25] MEDS ORDERED: NITROFURANTOIN 100 MG CAP PO SCH ×2 (09:00)
[2025-01-25] MEDS: cefTRIAXone SOD 2 GM in DEXTROSE 5% (D5W) ADV/MINI-BAG 50 ML IV SCH (10:07)
[2025-01-25 12:00] VITALS: BP 100/54; TEMP 97.7; O2SAT 96
[2025-01-25] MEDS ORDERED: NS 500 ML IV ONE (13:00)
[2025-01-25 13:49] VITALS: BP 100/58
[2025-01-25] MEDS: NS 500 ML IV ONE (13:49)
[2025-01-25] MEDS: MIDODRINE 5 MG TAB PO ONE (13:49)
[2025-01-25 20:22] VITALS: BP 111/55; TEMP 97.5; O2SAT 97
[2025-01-26 04:00] VITALS: BP 111/55; TEMP 97.5; O2SAT 97
[2025-01-26 04:19] VITALS: BP 114/55; TEMP 97.7; O2SAT 96
[2025-01-26 06:15] LABS: BASO # 0.0 10^3/uL (0.0-0.2); BASO % 0.3 % (0.0-1.0); EOS # 0.1 10^3/uL (0.0-0.5); EOS % 1.1 % (0.0-3.0); LYMPH # 2.3 10^3/uL (1.5-5.0); LYMPH % 17.6 % (24.0-44.0); MONO # 1.3 10^3/uL (0.0-0.8); MONO % 9.5 % (2.0-8.0); NEUTROPHILS # 9.3 10^3/uL (1.5-8.5); NEUTROPHILS % 70.5 % (36.0-66.0); PLATELET COUNT, AUTOMATED 123 10^3/uL (150-450)
[2025-01-26] MEDS ORDERED: CEFD1CAP9 PO (10:28)
[2025-01-27] MEDS ORDERED: DOXY100C3 PO (16:35)
== END 2025-01-26 12:20 | disposition home or self-care (01) | DRG 641 ==
LOC: EDBD 17:26 → M ED 17:26 → M ED INP 17:27 → OBSVTOIN 01-22 07:53 → M MSPAV 01-22 15:35
PROVIDERS: ADMIT Student in an Organized Health Care Education/Training Program; ATTEND Internal Medicine Nephrology
DX: E87.6 Hypokalemia (principal); N39.0 Urinary tract infection, site not specified; D69.1 Qualitative platelet defects; K59.00 Constipation, unspecified; E83.42 Hypomagnesemia; M06.9 Rheumatoid arthritis, unspecified; J44.9 Chronic obstructive pulmonary disease, unspecified; F32.A Depression, unspecified; E78.5 Hyperlipidemia, unspecified; I10 Essential (primary) hypertension; R26.89 Other abnormalities of gait and mobility; K27.9 Peptic ulcer, site unspecified, unspecified as acute or chronic, without hemorrhage or perforation; E03.9 Hypothyroidism, unspecified; G62.9 Polyneuropathy, unspecified; K21.9 Gastro-esophageal reflux disease without esophagitis; K44.9 Diaphragmatic hernia without obstruction or gangrene; R11.2 Nausea with vomiting, unspecified; K30 Functional dyspepsia; M10.9 Gout, unspecified; R74.01 Elevation of levels of liver transaminase levels; K52.9 Noninfective gastroenteritis and colitis, unspecified; D64.9 Anemia, unspecified; F17.210 Nicotine dependence, cigarettes, uncomplicated; J45.909 Unspecified asthma, uncomplicated; Z90.49 Acquired absence of other specified parts of digestive tract; Z90.79 Acquired absence of other genital organ(s); Z79.890 Hormone replacement therapy; Z79.899 Other long term (current) drug therapy; Z88.5 Allergy status to narcotic agent; Z88.6 Allergy status to analgesic agent; Z88.8 Allergy status to other drugs, medicaments and biological substances; Z96.619 Presence of unspecified artificial shoulder joint

== ENCOUNTER 2025-01-30 19:26 | Emergency (ER) | payer MEDICARE ==
[~2025-01-30] VITALS: Ht 149.9 cm; Wt 61.8 kg
[~2025-01-30 19:26] MED LIST changes: +CEFD1CAP9 PO; +DOXY100C3 PO; +POTA8CAP10 PO
[2025-01-30 20:57] LABS: BASO # 0.0 10^3/uL (0.0-0.2); BASO % 0.4 % (0.0-1.0); EOS # 0.0 10^3/uL (0.0-0.5); EOS % 0.1 % (0.0-3.0); LYMPH # 1.2 10^3/uL (1.5-5.0); LYMPH % 11.1 % (24.0-44.0); MONO # 0.8 10^3/uL (0.0-0.8); MONO % 7.1 % (2.0-8.0); NEUTROPHILS # 8.8 10^3/uL (1.5-8.5); NEUTROPHILS % 80.7 % (36.0-66.0); PLATELET COUNT, AUTOMATED 202 10^3/uL (150-450)
[2025-01-30 21:24] LABS: ALT/SGPT 18 U/L (7.0-40); AST/SGOT 52 U/L (<34); CALCIUM LEVEL 8.2 MG/DL (8.3-10.6); CARBON DIOXIDE LEVEL 20 MMOL/L (20-31); CHLORIDE LEVEL 109 MMOL/L (98-107); CREATININE FOR GFR 0.67 MG/DL (0.55-1.30); GLOMERULAR FILTRATION RATE > 90.0 (>45); POTASSIUM SERUM 4.7 MMOL/L (3.5-5.1); SODIUM LEVEL 141 MMOL/L (136-145)
[2025-01-31] MEDS ORDERED: ISOVUE-370 76% 100 ML VIAL As Ordered ONE (01:50)
[2025-01-31] MEDS: ONDANSETRON 4MG 2ML VIAL IV ONE (01:59)
[2025-01-31] MEDS: HYDROMORPHONE HCL 0.5 MG/0.5 ML SYRINGE IV PRN (02:00)
[2025-01-31 02:31] LABS: KETONE, URINE AUTO RFX NEGATIVE (NEGATIVE); LEUKOCYTE ESTERASE UR AUTO RFX 3+ (NEGATIVE); MUCUS, URINE RFX SMALL (NEGATIVE); NITRITE, URINE AUTO RFX NEGATIVE (NEGATIVE); RBC, URINE AUTO RFX 22 /HPF (0-3); SQUAM EPITHELIAL CELL UR AURFX 7 /HPF (0-6); WBC, URINE AUTO RFX 35 /HPF (0-3)
[2025-01-31] MEDS: CHOLESTYRAMINE 4 GM PWD PKT PO STA (04:25)
[2025-01-31 09:29] LABS: ALT/SGPT 18.0 U/L (7.0-40); AST/SGOT 40.0 U/L (<34)
[2025-01-31] MEDS ORDERED: ONDA-282 PO (10:18)
[2025-01-31 10:58] VITALS: BP 179/83; TEMP 97.7; O2SAT 98
== END 2025-01-31 11:41 | disposition home or self-care (01) ==
LOC: M ED 19:26
DX: R10.84 Generalized abdominal pain (principal); R11.0 Nausea; I48.91 Unspecified atrial fibrillation; I25.10 Atherosclerotic heart disease of native coronary artery without angina pectoris; I50.9 Heart failure, unspecified; E03.9 Hypothyroidism, unspecified; Z86.73 Personal history of transient ischemic attack (TIA), and cerebral infarction without residual deficits; Z95.0 Presence of cardiac pacemaker; Z88.5 Allergy status to narcotic agent; Z88.8 Allergy status to other drugs, medicaments and biological substances; Z79.899 Other long term (current) drug therapy; Z90.49 Acquired absence of other specified parts of digestive tract; M51.369 Other intervertebral disc degeneration, lumbar region without mention of lumbar back pain or lower extremity pain
CPT/HCPCS: 74177; 80048; 80076; 81001; 83690; 85025; 87086; 96374; 96375; 96376; 99285; J1171; J2405; Q9967

== ENCOUNTER 2025-02-05 16:06 | Emergency (ER) | payer MEDICARE ==
[~2025-02-05] VITALS: Ht 149.9 cm; Wt 56.7 kg
[~2025-02-05 16:06] MED LIST changes: +ONDA-282 PO
[2025-02-05] MEDS: LIDOCAINE VISCOUS 2% SOLN 15 ML UDC PO ONE (19:30)
[2025-02-05] MEDS: SUCRALFATE SUSP 1GM/10ML UD PO ONE (19:30)
[2025-02-05] MEDS: MAALOX 30 ML SUSP *UDC PO ONE (19:30)
[2025-02-05 19:53] LABS: ALT/SGPT 20.0 U/L (7.0-40); AST/SGOT 76.0 U/L (<34)
[2025-02-05 19:54] LABS: BASO # 0.0 10^3/uL (0.0-0.2); BASO % 0.4 % (0.0-1.0); EOS # 0.1 10^3/uL (0.0-0.5); EOS % 0.9 % (0.0-3.0); LYMPH # 1.7 10^3/uL (1.5-5.0); LYMPH % 21.4 % (24.0-44.0); MONO # 0.7 10^3/uL (0.0-0.8); MONO % 9.4 % (2.0-8.0); NEUTROPHILS # 5.3 10^3/uL (1.5-8.5); NEUTROPHILS % 67.5 % (36.0-66.0); PLATELET COUNT, AUTOMATED 164 10^3/uL (150-450)
[2025-02-05] MEDS ORDERED: ISOVUE-370 76% 100 ML VIAL As Ordered ONE (20:18)
[2025-02-05 23:08] LABS: KETONE, URINE AUTO RFX TRACE mg/dL (NEGATIVE); MUCUS, URINE RFX SMALL (NEGATIVE); NITRITE, URINE AUTO RFX NEGATIVE (NEGATIVE); RBC, URINE AUTO RFX 6 /HPF (0-3); SQUAM EPITHELIAL CELL UR AURFX 1 /HPF (0-6); WBC, URINE AUTO RFX 6 /HPF (0-3)
[2025-02-05 23:29] LABS: LEUKOCYTE ESTERASE UR AUTO RFX 1+ (NEGATIVE)
[2025-02-05] MEDS ORDERED: SUCR1SS PO (23:31)
[2025-02-05] MEDS ORDERED: MICO2CRE7 PV (23:33)
[2025-02-06 00:30] VITALS: BP 138/69; TEMP 98.1; O2SAT 98
== END 2025-02-06 00:32 | disposition home or self-care (01) ==
LOC: M ED 16:06
DX: A09 Infectious gastroenteritis and colitis, unspecified (principal); K57.30 Diverticulosis of large intestine without perforation or abscess without bleeding; K21.9 Gastro-esophageal reflux disease without esophagitis; K27.9 Peptic ulcer, site unspecified, unspecified as acute or chronic, without hemorrhage or perforation; F17.200 Nicotine dependence, unspecified, uncomplicated; Z90.89 Acquired absence of other organs; Z88.5 Allergy status to narcotic agent; Z88.6 Allergy status to analgesic agent; Z88.8 Allergy status to other drugs, medicaments and biological substances; Z79.52 Long term (current) use of systemic steroids; Z79.2 Long term (current) use of antibiotics; Z79.83 Long term (current) use of bisphosphonates; Z79.899 Other long term (current) drug therapy
CPT/HCPCS: 36415; 74177; 80076; 81001; 83690; 85025; 87088; 99284; Q9967

== ENCOUNTER → 2025-04-09 | Outpatient (REF) | payer MEDICARE ==
[~2025-04-09] MED LIST changes: -EZET10TA21 PO; +EZET10TA57 PO; +MICO2CRE7 PV; +SUCR1SS PO
[2025-04-09 17:24] LABS: BASO # 0.1 10^3/uL (0.0-0.2); BASO % 0.4 % (0.0-1.0); EOS # 0.1 10^3/uL (0.0-0.5); EOS % 0.5 % (0.0-3.0); LYMPH # 1.6 10^3/uL (1.5-5.0); LYMPH % 12.4 % (24.0-44.0); MONO # 1.2 10^3/uL (0.0-0.8); MONO % 9.4 % (2.0-8.0); NEUTROPHILS # 9.9 10^3/uL (1.5-8.5); NEUTROPHILS % 77.0 % (36.0-66.0); PLATELET COUNT, AUTOMATED 289 10^3/uL (150-450)
[2025-04-09 17:39] LABS: ALT/SGPT 14 U/L (7.0-40); AST/SGOT 33 U/L (<34); CALCIUM LEVEL 9.1 MG/DL (8.3-10.6); CARBON DIOXIDE LEVEL 28 MMOL/L (20-31); CHLORIDE LEVEL 106 MMOL/L (98-107); CHOLESTEROL LEVEL 143 MG/DL (<200); CHOLESTEROL RISK RATIO 4.52 (<5); CREATININE FOR GFR 0.68 MG/DL (0.55-1.30); GLOMERULAR FILTRATION RATE > 90.0 (>45); LDL CHOLESTEROL 82.6 MG/DL (<100); NON-HDL-C 111.4 MG/DL; POTASSIUM SERUM 4.0 MMOL/L (3.5-5.1); SODIUM LEVEL 143 MMOL/L (136-145); TRIGLYCERIDES LEVEL 144 MG/DL (<150)
== END ==
LOC: M LAB REF 16:24
PROVIDERS: ATTEND Student in an Organized Health Care Education/Training Program
DX: R11.2 Nausea with vomiting, unspecified (principal); K27.9 Peptic ulcer, site unspecified, unspecified as acute or chronic, without hemorrhage or perforation; I25.2 Old myocardial infarction; E03.9 Hypothyroidism, unspecified

== ENCOUNTER 2025-06-02 12:11 | Emergency (ER) | payer MEDICARE ==
[~2025-06-02 12:11] MED LIST changes: +ACET-839 PO; +ATOR1TAB19 PO; +BACI50OI TOP; +BISA10SU PR; +D-10TAB3 PO; +DICL1PAT6 TOP; +DOCU8.6T PO; +FERR324T2 PO; +LIDO5TD TD; +MAGN400T33 PO; +ONDA-284 SL; +OXYC-517 PO; +RAME8TAB2 PO
[2025-06-02 13:15] LABS: KETONE, URINE AUTO RFX NEGATIVE (NEGATIVE); LEUKOCYTE ESTERASE UR AUTO RFX NEGATIVE (NEGATIVE); MUCUS, URINE RFX SMALL (NEGATIVE); NITRITE, URINE AUTO RFX NEGATIVE (NEGATIVE); RBC, URINE AUTO RFX 3 /HPF (0-3); SQUAM EPITHELIAL CELL UR AURFX 1 /HPF (0-6); WBC, URINE AUTO RFX 8 /HPF (0-3)
[2025-06-02 13:20] LABS: BASO # 0.0 10^3/uL (0.0-0.2); BASO % 0.2 % (0.0-1.0); EOS # 0.1 10^3/uL (0.0-0.5); EOS % 0.9 % (0.0-3.0); LYMPH # 1.3 10^3/uL (1.5-5.0); LYMPH % 13.3 % (24.0-44.0); MONO # 1.0 10^3/uL (0.0-0.8); MONO % 10.6 % (2.0-8.0); NEUTROPHILS # 7.3 10^3/uL (1.5-8.5); NEUTROPHILS % 74.8 % (36.0-66.0); PLATELET COUNT, AUTOMATED 401 10^3/uL (150-450)
[2025-06-02 13:56] LABS: ALT/SGPT 49 U/L (7.0-40); AST/SGOT 147 U/L (<34); CALCIUM LEVEL 9.2 MG/DL (8.3-10.6); CARBON DIOXIDE LEVEL 25 MMOL/L (20-31); CHLORIDE LEVEL 106 MMOL/L (98-107); CREATININE FOR GFR 0.60 MG/DL (0.55-1.30); GLOMERULAR FILTRATION RATE > 90.0 (>45); MAGNESIUM LEVEL 1.8 MG/DL (1.8-2.4); POTASSIUM SERUM 4.2 MMOL/L (3.5-5.1); SODIUM LEVEL 143 MMOL/L (136-145)
[2025-06-02 13:58] LABS: FREE T4 0.96 NG/DL (0.89-1.76)
[2025-06-02] MEDS ORDERED: SENN1TAB85 PO (14:50)
[2025-06-02] MEDS ORDERED: HOME MED LIST COMPLETE! XX SCH (14:50)
[2025-06-02] MEDS ORDERED: SYNT125T PO (14:50)
[2025-06-02] MEDS ORDERED: BACIOIN5 TOP (14:50)
[2025-06-02] MEDS ORDERED: DICL1PAT6 TOP (14:50)
[2025-06-02] MEDS ORDERED: LIDO1PAD TOP (14:50)
[2025-06-02] MEDS ORDERED: BISA10SU27 PR (14:50)
[2025-06-02] MEDS ORDERED: OXYC-517 PO (14:50)
[2025-06-02] MEDS ORDERED: MAGN400T35 PO (14:50)
[2025-06-02] MEDS ORDERED: SUCR1TA PO (14:50)
[2025-06-02] MEDS ORDERED: LOPE-39 PO (14:50)
[2025-06-02] MEDS ORDERED: ROZE8TAB16 PO (14:50)
[2025-06-02] MEDS ORDERED: IPRATROPIUM 0.5 MG/ALBUTEROL 2.5 MG INH SOL UD 3 ML NEB PRN (14:55)
[2025-06-02] MEDS ORDERED: LOPERAMIDE 2 MG CAPLET PO PRN (15:00)
[2025-06-02] MEDS ORDERED: RAMELTEON 8 MG TAB PO PRN (15:00)
[2025-06-02] MEDS ORDERED: DICLOFENAC EPOLAMINE 1.3% PATCH TOP PRN (15:00)
[2025-06-02] MEDS ORDERED: ONDANSETRON 4MG ORAL DISINTEGRATING TAB SL PRN (15:00)
[2025-06-02] MEDS ORDERED: BISACODYL 10 MG SUPP PR PRN (15:00)
[2025-06-02] MEDS: PANTOPRAZOLE 40MG TAB PO SCH (15:00)
[2025-06-02] MEDS ORDERED: ACETAMINOPHEN 500 MG TAB PO PRN (15:00)
[2025-06-02] MEDS: LIDOCAINE 5% PATCH TOP SCH (16:01)
[2025-06-02] MEDS: GABAPENTIN 300 MG CAP PO SCH (16:01)
[2025-06-02] MEDS: SUCRALFATE 1 GM TAB PO SCH (16:01)
[2025-06-02] MEDS: MAGNESIUM OXIDE 400 MG TAB PO SCH (16:01)
[2025-06-02] MEDS: SENNOSIDES/DOCUSATE SODIUM 8.6 MG/50MG TAB PO SCH (21:00)
[2025-06-02] MEDS: ATORVASTATIN 10 MG TAB PO SCH (21:10)
[2025-06-03] MEDS: LEVOTHYROXINE 125 MCG TABLET (0.125 MG) PO SCH (06:17)
[2025-06-03] MEDS: VITAMIN D 1,000 INTERNATIONAL UNITS TABLET PO SCH (09:36)
[2025-06-03] MEDS: NIX CREME RINSE 1% 60 ML KIT TOP ONE (11:26)
[2025-06-04 04:00] VITALS: TEMP 97.9
[2025-06-04 15:00] VITALS: BP 99/54; O2SAT 94
== END 2025-06-04 15:48 | disposition home or self-care (01) ==
LOC: EDBD 12:11 → M ED 12:11
DX: R53.1 Weakness (principal); I10 Essential (primary) hypertension; E78.5 Hyperlipidemia, unspecified; J45.909 Unspecified asthma, uncomplicated; J44.9 Chronic obstructive pulmonary disease, unspecified; Z86.711 Personal history of pulmonary embolism; G25.81 Restless legs syndrome; K21.9 Gastro-esophageal reflux disease without esophagitis; M06.9 Rheumatoid arthritis, unspecified; E03.9 Hypothyroidism, unspecified; Z87.19 Personal history of other diseases of the digestive system; Z87.11 Personal history of peptic ulcer disease; K44.9 Diaphragmatic hernia without obstruction or gangrene; G62.9 Polyneuropathy, unspecified; M43.22 Fusion of spine, cervical region; Z87.891 Personal history of nicotine dependence

== ENCOUNTER → 2025-06-26 | Outpatient (CLI) | payer MEDICARE ==
[~2025-06-26] MED LIST changes: +BACIOIN5 TOP; +BISA10SU27 PR; -DOCU8.6T PO; +LIDO1PAD TOP; +MAGN400T35 PO; +ROZE8TAB16 PO; +SENN-208 PO; +SENN1TAB85 PO; +SUCR1TA PO; +SYNT125T PO
== END ==
LOC: M RAD 08:58
PROVIDERS: ATTEND Physician Assistant
DX: M50.021 Cervical disc disorder at C4-C5 level with myelopathy (principal); Z48.811 Encounter for surgical aftercare following surgery on the nervous system